=== PATIENT | female | born 1960 | race Caucasian/White ===

== ENCOUNTER 2019-01-23 04:54 | Emergency (ER) | payer BC ==
[2019-01-23 05:02] VITALS: RESP 18; TEMP 98
[2019-01-23] MEDS ORDERED: diphenhydrAMINE 50 MG/ML 1 ML VIAL IVP STA (05:14)
[2019-01-23] MEDS ORDERED: FAMOTIDINE 20 MG/2 ML VIAL IV STA (05:14)
--- NOTE | 2019-01-23 05:24 | ED ---
General Adult HPI - General Chief complaint: Shortness of Breath Stated complaint: Diff Breathing Time Seen by Provider: 01/23/19 04:59 Source: patient Mode of arrival: ambulatory Limitations: no limitations - History of Present Illness Initial comments: 's patient is 58-year-old woman who presents with complaint that around 1 AM today she woke with a feeling like she was having some itching spots to her back and extremities. She states that she was able to go back to sleep and then woke up a little later feeling like she may have some tightening in her throat. The patient states she had eaten lettuce from a different source than is usual for her. Onset/Timin -: hour(s) Location: back, lower extremity Quality: other (Itching) Consistency: constant Improves with: none Worsens with: none Treatments Prior to Arrival: none - Related Data Previous Rx's Medication Instructions Recorded Famotidine [Pepcid] 20 mg PO BID #14 tablet 01/23/19 diphenhydrAMINE [Benadryl] 50 mg PO QID PRN #20 capsule 01/23/19 Allergies Allergy/AdvReac Type Severity Reaction Status Date / Time aspirin Allergy Anaphylaxis Verified 01/23/19 05:03 codeine Allergy Anaphylaxis Verified 01/23/19 05:03 shellfish derived [Shellfish] Allergy Anaphylaxis Verified 01/23/19 05:03 Review of Systems ROS Statement: Those systems with pertinent positive or pertinent negative responses have been documented in the HPI. ROS Other: All systems not noted in ROS Statement are negative. Constitutional: Denies: fever, chills, weakness ENT: Denies: congestion Respiratory: Denies: cough, dyspnea, wheezes Cardiovascular: Denies: chest pain, palpitations, edema, syncope Gastrointestinal: Reports: diarrhea (One episode). Denies: abdominal pain, nausea, vomiting Skin: Reports: as per HPI, rash Past Medical History Past Medical History: No Reported History History of Any Multi-Drug Resistant Organisms: None Reported Past Surgical History: Section, Hysterectomy Past Psychological History: No Psychological Hx Reported Smoking Status: Never smoker Past Alcohol Use History: None Reported Past Drug Use History: None Reported General Exam Limitations: no limitations General appearance: alert, in no apparent distress Head exam: Present: atraumatic, normocephalic Eye exam: Present: normal appearance. Absent: scleral icterus, conjunctival injection ENT exam: Present: normal oropharynx Respiratory exam: Present: normal lung sounds bilaterally. Absent: respiratory distress, wheezes, rales, rhonchi, stridor Cardiovascular Exam: Present: regular rate, normal rhythm, normal heart sounds. Absent: systolic murmur, diastolic murmur, rubs, gallop GI/Abdominal exam: Present: soft. Absent: tenderness, guarding, rebound Extremities exam: Present: other (Urticaria) Back exam: Present: other (Urticaria) Neurological exam: Present: alert Skin exam: Present: warm, dry, intact, urticaria. Absent: cyanosis, diaphoretic, erythema, vesicles, petechiae, pallor, mottled, abrasion Course Vital Signs 01/23/19 04:56 Temperature 98.0 F Pulse Rate 92 Respiratory 18 Rate Blood Pressure 138/73 O2 Sat by Pulse 99 Oximetry Disposition Clinical Impression: Allergic reaction Disposition: HOME SELF-CARE Condition: Good Instructions (If sedation given, give patient instructions): General Allergic Reaction (ED) Prescriptions: diphenhydrAMINE [Benadryl] 50 mg PO QID PRN #20 capsule PRN Reason: Itching Famotidine [Pepcid] 20 mg PO BID #14 tablet Is patient prescribed a controlled substance at d/c from ED?: No Referrals: None,Stated [Primary Care Provider] - 1-2 days
[2019-01-23 07:01] VITALS: BP 133/73; PULSE 78
== END 2019-01-23 07:11 | disposition home or self-care (01) ==
LOC: EC 04:54
DX: L50.0 Allergic urticaria (principal); Z88.5 Allergy status to narcotic agent; Z88.6 Allergy status to analgesic agent; Z91.013 Allergy to seafood
CPT/HCPCS: 96374; 96375; 99284

== ENCOUNTER 2019-01-24 10:40 | Inpatient (IN) | payer BC ==
[2019-01-24] MEDS ORDERED: methylPREDNISolone SOD SUCCI 125 MG/2 ML VIAL IV STA (11:18)
[2019-01-24] MEDS ORDERED: FAMOTIDINE 20 MG/2 ML VIAL IV STA (11:18)
[2019-01-24] MEDS ORDERED: SODIUM CHLORIDE 0.9% 1,000 ML IV STA (11:18)
--- NOTE | 2019-01-24 11:46 | ED ---
General Adult HPI - General Chief complaint: Allergic Reaction Stated complaint: allergic reaction Time Seen by Provider: 01/24/19 11:02 Source: patient, RN notes reviewed, old records reviewed Mode of arrival: ambulatory Limitations: no limitations - History of Present Illness Initial comments: Patient's a 58-year-old male presents emergency room today for evaluation for urticaria over her arms legs. States that it feels like her lips are swollen. She seems from 2 days ago for similar complaint. At times discharged Pepcid and Benadryl Patient is only taking Benadryl. Patient states that she was feeling dizzy and lightheaded, and complains of increasing shortness of breath over the past week. She states that she has noticed that she appears to be somewhat pale. Patient states that she has had no changes in urination or stools. Surgical history includes hysterectomy. Denies vaginal bleeding. Patient states that she is never had a colonoscopy before. She denies any abdominal pain at this time. - Related Data Previous Rx's Medication Instructions Recorded Famotidine [Pepcid] 20 mg PO BID #14 tablet 01/23/19 diphenhydrAMINE [Benadryl] 50 mg PO QID PRN #20 capsule 01/23/19 Allergies Allergy/AdvReac Type Severity Reaction Status Date / Time aspirin Allergy Anaphylaxis Verified 01/24/19 10:59 codeine Allergy Anaphylaxis Verified 01/24/19 10:59 shellfish derived [Shellfish] Allergy Anaphylaxis Verified 01/24/19 10:59 Review of Systems ROS Statement: Those systems with pertinent positive or pertinent negative responses have been documented in the HPI. ROS Other: All systems not noted in ROS Statement are negative. Past Medical History Past Medical History: No Reported History History of Any Multi-Drug Resistant Organisms: None Reported Past Surgical History: Section, Hysterectomy Past Psychological History: No Psychological Hx Reported Smoking Status: Never smoker Past Alcohol Use History: None Reported Past Drug Use History: None Reported General Exam - General Exam Comments Initial Comments: Patient appears pale. Alert and oriented 58-year-old female. Limitations: no limitations General appearance: alert, in no apparent distress Head exam: Present: atraumatic, normocephalic, normal inspection Eye exam: Present: normal appearance, PERRL, EOMI. Absent: scleral icterus, conjunctival injection, periorbital swelling ENT exam: Present: normal exam, mucous membranes moist Neck exam: Present: normal inspection. Absent: tenderness, meningismus, lymphadenopathy Respiratory exam: Present: normal lung sounds bilaterally. Absent: respiratory distress, wheezes, rales, rhonchi, stridor Cardiovascular Exam: Present: regular rate, normal rhythm, normal heart sounds. Absent: systolic murmur, diastolic murmur, rubs, gallop, clicks GI/Abdominal exam: Present: soft, normal bowel sounds. Absent: distended, tenderness, guarding, rebound, rigid Rectal exam: Present: normal inspection, normal rectal tone Extremities exam: Present: normal inspection, full ROM, normal capillary refill. Absent: tenderness, pedal edema, joint swelling, calf tenderness Back exam: Present: normal inspection, full ROM Neurological exam: Present: alert, oriented X3, CN II-XII intact Psychiatric exam: Present: normal affect, normal mood Skin exam: Present: warm, dry, intact, normal color, urticaria (Patient has evidence of urticaria over her legs and inner thigh.). Absent: rash Course Vital Signs 01/24/19 01/24/19 10:56 12:22 Temperature 98.1 F Pulse Rate 84 85 Respiratory 16 16 Rate Blood Pressure 139/73 120/58 O2 Sat by Pulse 99 99 Oximetry Medical Decision Making - Medical Decision Making Patient is a 58-year-old female presenting to emergency department for evaluation for ALLERGIC reaction, urticaria. She also mentioned in by passing that she was feeling dizzy and shortness of breath over the past week. On examination Patient appears somewhat pale. She also appeared quite anxious. Patient had lab work is completed. There is found to be significantly low hemoglobin of 5.6. On requestioning Patient denies any changes in stools or black tarry stools. Fecal occult was negative. Patient states that she's been having the lightheaded dizziness and shortness of breath over the past week specifically. Denied chest pain. At this time I did give the Patient a dose of Solu-Medrol and Pepcid for urticaria. She recently took Benadryl. I discussed that I'll need to give the Patient IV blood transfusion. Patient is agreeable to this. Patient will be admitted at this time for symptomatically anemia, urticaria. Rectal exam showed no dark tarry stools or active bleeding. - Lab Data Result diagrams: 01/24/19 11:41 01/24/19 11:41 Lab Results 01/24/19 01/24/19 01/24/19 Range/Units 11:41 11:41 11:41 WBC 4.9 (3.8-10.6) k/uL RBC 3.09 L (3.80-5.40) m/uL Hgb 5.1 L* (11.4-16.0) gm/dL Hct 19.8 L* (34.0-46.0) % MCV 64.0 L (80.0-100.0) fL MCH 16.4 L (25.0-35.0) pg MCHC 25.6 L (31.0-37.0) g/dL RDW 18.1 H (11.5-15.5) % Plt Count 239 (150-450) k/uL Neutrophils % 71 % Lymphocytes % 21 % Monocytes % 4 % Eosinophils % 2 % Basophils % 0 % Neutrophils # 3.5 (1.3-7.7) k/uL Lymphocytes # 1.0 (1.0-4.8) k/uL Monocytes # 0.2 (0-1.0) k/uL Eosinophils # 0.1 (0-0.7) k/uL Basophils # 0.0 (0-0.2) k/uL Hypochromasia Marked Poikilocytosis Slight Anisocytosis Slight Microcytosis Marked PT 9.7 (9.0-12.0) sec INR 0.9 (<1.2) APTT 21.5 L (22.0-30.0) sec Sodium 140 (137-145) mmol/L Potassium 4.1 (3.5-5.1) mmol/L Chloride 106 (98-107) mmol/L Carbon Dioxide 23 (22-30) mmol/L Anion Gap 11 mmol/L BUN 10 (7-17) mg/dL Creatinine 0.53 (0.52-1.04) mg/dL Est GFR (CKD-EPI)AfAm >90 (>60 ml/min/1.73 sqM) Est GFR (CKD-EPI)NonAf >90 (>60 ml/min/1.73 sqM) Glucose 93 (74-99) mg/dL Calcium 8.9 (8.4-10.2) mg/dL Magnesium 2.2 (1.6-2.3) mg/dL Total Bilirubin 1.0 (0.2-1.3) mg/dL AST 13 L (14-36) U/L ALT 14 (9-52) U/L Alkaline Phosphatase 108 (38-126) U/L Troponin I (0.000-0.034) ng/mL Total Protein 6.5 (6.3-8.2) g/dL Albumin 3.7 (3.5-5.0) g/dL Stool Occult Blood (Negative) 01/24/19 01/24/19 Range/Units 11:41 12:16 WBC (3.8-10.6) k/uL RBC (3.80-5.40) m/uL Hgb (11.4-16.0) gm/dL Hct (34.0-46.0) % MCV (80.0-100.0) fL MCH (25.0-35.0) pg MCHC (31.0-37.0) g/dL RDW (11.5-15.5) % Plt Count (150-450) k/uL Neutrophils % % Lymphocytes % % Monocytes % % Eosinophils % % Basophils % % Neutrophils # (1.3-7.7) k/uL Lymphocytes # (1.0-4.8) k/uL Monocytes # (0-1.0) k/uL Eosinophils # (0-0.7) k/uL Basophils # (0-0.2) k/uL Hypochromasia Poikilocytosis Anisocytosis Microcytosis PT (9.0-12.0) sec INR (<1.2) APTT (22.0-30.0) sec Sodium (137-145) mmol/L Potassium (3.5-5.1) mmol/L Chloride (98-107) mmol/L Carbon Dioxide (22-30) mmol/L Anion Gap mmol/L BUN (7-17) mg/dL Creatinine (0.52-1.04) mg/dL Est GFR (CKD-EPI)AfAm (>60 ml/min/1.73 sqM) Est GFR (CKD-EPI)NonAf (>60 ml/min/1.73 sqM) Glucose (74-99) mg/dL Calcium (8.4-10.2) mg/dL Magnesium (1.6-2.3) mg/dL Total Bilirubin (0.2-1.3) mg/dL AST (14-36) U/L ALT (9-52) U/L Alkaline Phosphatase (38-126) U/L Troponin I <0.012 (0.000-0.034) ng/mL Total Protein (6.3-8.2) g/dL Albumin (3.5-5.0) g/dL Stool Occult Blood Negative (Negative) 01/24/19 11:58 EKG performed at 1129 shows sinus rhythm with fusion complexes. Nonspecific ST and around. Abnormal EKG. Ventricular rate of 75 bpm.. Intervals 146 most seconds. Chemistries and 72 Alba's seconds. QT QTc is 370/422 ms. - Radiology Data Radiology results: report reviewed Disposition Clinical Impression: Urticaria, Symptomatic anemia, Abnormal hemoglobin Disposition: ADMITTED IP TO THIS [facility] Condition: Good Is patient prescribed a controlled substance at d/c from ED?: No Referrals: None,Stated [Primary Care Provider] - 1-2 days Time of Disposition: 12:40
[2019-01-24 11:54] LABS: Anisocytosis Slight; Basophils % (A) 0 %; Eosinophils # (A) 0.1 k/uL (0-0.7); Eosinophils % (A) 2 %; Hypochromasia Marked; Lymphocytes % (A) 21 %; MCH 16.4 pg (25.0-35.0); MCHC 25.6 g/dL (31.0-37.0); Mean Platelet Volume 7.7; Microcytosis Marked; Monocytes # (A) 0.2 k/uL (0-1.0); Monocytes % (A) 4 %; Neutrophils # (A) 3.5 k/uL (1.3-7.7); Neutrophils % (A) 71 %; Platelet Count 239 k/uL (150-450); Poikilocytosis Slight; RBC 3.09 m/uL (3.80-5.40); RDW 18.1 % (11.5-15.5); WBC 4.9 k/uL (3.8-10.6)
[2019-01-24 12:00] LABS: HGB 5.1 gm/dL (11.4-16.0)
[2019-01-24 12:01] LABS: HCT 19.8 % (34.0-46.0)
[2019-01-24 12:02] LABS: ALT 14 U/L (9-52); AST 13 U/L (14-36); African American GFR (CKD) >90 (>60 ml/min/1.73 sqM); Albumin 3.7 g/dL (3.5-5.0); Alkaline Phosphatase 108 U/L (38-126); Anion Gap 11 mmol/L; Blood Urea Nitrogen 10 mg/dL (7-17); Calcium 8.9 mg/dL (8.4-10.2); Carbon Dioxide 23 mmol/L (22-30); Chloride 106 mmol/L (98-107); Glucose 93 mg/dL (74-99); Magnesium 2.2 mg/dL (1.6-2.3); Potassium 4.1 mmol/L (3.5-5.1); Sodium 140 mmol/L (137-145); Total Protein 6.5 g/dL (6.3-8.2)
[2019-01-24 12:16] LABS: INR 0.9 (<1.2); Prothrombin Time 9.7 sec (9.0-12.0)
[2019-01-24 12:18] LABS: Partial Thromboplastin Time 21.5 sec (22.0-30.0)
[2019-01-24] MEDS ORDERED: PANTOPRAZOLE 40 MG/10 ML VIAL IVP STA (12:26)
[2019-01-24] MEDS ORDERED: NALOXONE 0.4 MG/ML 1 ML VIAL IV PRN (12:41)
[2019-01-24] MEDS ORDERED: MORPHINE SULFATE 4 MG/ML SYRINGE IV PRN (12:41)
[2019-01-24] MEDS ORDERED: ONDANSETRON 4 MG/2 ML VIAL IVP PRN (12:41)
[2019-01-24] MEDS: SODIUM CHLORIDE 0.9% 1,000 ML IV SCH ×2 (12:52→22:01)
[2019-01-24] MEDS ORDERED: IOPAMIDOL-300 CONTRAST 30 ML VIAL (ORAL USE) PO PRN (15:27)
--- NOTE | 2019-01-24 15:36 | P.HPIM ---
History of Present Illness Chief Complaint: Shortness of breath This very pleasant 58-year-old female who comes in for above-mentioned complaint. The patient says that she was having urticarial lesions on her whole body starting 2 days ago. She came into the ER 2 days ago for which she was given Benadryl and Pepcid and her symptoms subsided. She said that she took off yesterday. she said that she started having those urticarial skin eruptions again today and she felt like her lips were swollen. She took Benadryl again and the rash went away. She said that for the past few days or so she's been feeling weak, more short of breath not able to do her daily activities without been short of breath. She was also told that she looks pale. She does came into the ER for further evaluation and management. She otherwise does not complain of any blood in the stools any bleeding from anywhere, she said that she had hysterectomy done about 20 years ago for excessive vaginal bleeding. She said that she never had her hemoglobin checked and she does not go to the doctor's. She doesn't have her colonoscopy done. She was not complaining of any chest pain but says that she's feeling palpitations, she does not complain of any cough but she is short of breath, she says that she is not painful in her belly but she is definitely tender in the left upper and lower quadrant that she does not complain of any nausea vomiting, no diarrhea constipation, no tingling numbness of any of the extremities, no itch or rash. ER course-temperature 98.4 pulse 87 respiration 18 blood pressure 114/87 satting 96%. Labwork was done which showed WBC 4.9 hemoglobin 5.1 platelets 239. Sodium 140 potassium 4.1 bun 10 creatinine 0.53 GFR more than 90. Fecal occult blood test was negative. Patient was given 2 units of blood and admitted to the hospitalist service a further evaluation and management Review of Systems All systems: negative Past Medical History Past Medical History: GERD/Reflux Additional Past Medical History / Comment(s): Light headed occasionally, hiatal hernia, R carpal tunnel syndrome, occasional lower back pain. History of Any Multi-Drug Resistant Organisms: None Reported Past Surgical History: Section, Hysterectomy Additional Past Surgical History / Comment(s): x 3, cervical lymph node excision, EGD, L carpal tunnel release. Past Anesthesia/Blood Transfusion Reactions: Postoperative Nausea & Vomiting (PONV) Additional Past Anesthesia/Blood Transfusion Reaction / Comment(s): Pt is currently in ER receiving blood transfusion. Smoking Status: Never smoker - Past Family History Father Family Medical History: No Reported History Additional Family Medical History / Comment(s): Father is healthy Mother Additional Family Medical History / Comment(s): Anemia Medications and Allergies Home Medications Medication Instructions Recorded Confirmed Type No Known Home Medications 01/24/19 01/24/19 History Allergies Allergy/AdvReac Type Severity Reaction Status Date / Time aspirin Allergy Anaphylaxis Verified 01/24/19 10:59 codeine Allergy Anaphylaxis Verified 01/24/19 10:59 shellfish derived [Shellfish] Allergy Anaphylaxis Verified 01/24/19 10:59 Physical Exam Vitals: Vital Signs Temp Pulse Resp BP Pulse Ox 01/24/19 14:19 98.4 F 87 18 114/87 01/24/19 13:49 98.6 F 87 18 111/68 100 01/24/19 13:39 99.1 F 87 18 129/55 98 01/24/19 13:20 127/58 01/24/19 13:10 87 20 121/48 98 01/24/19 13:00 88 26 H 116/49 01/24/19 12:52 82 18 116/49 100 01/24/19 12:50 81 17 116/49 100 01/24/19 12:40 83 19 103/54 99 01/24/19 12:30 80 18 120/58 100 01/24/19 12:22 85 16 120/58 99 01/24/19 12:20 86 20 120/58 100 01/24/19 12:17 18 01/24/19 10:56 98.1 F 84 16 139/73 99 Intake and Output 01/24/19 01/24/19 01/24/19 06:59 14:59 22:59 Intake Total 0 Balance 0 Intake: Blood Product 0 Rc As-1 Unit 0 [id number] Other: Weight 90.718 kg On exam, alert and oriented x3. HEENT: Conjunctivae normal. eyes normal. NECK: No JVD. No thyroid enlargement. No LNs CARDIOVASCULAR: S1, S2 muffled. No murmur RESPIRATION: Breath sounds diminished in the bases. No rhonchi or crackles. No bronchial breathing. ABDOMEN: Soft, tenderness in the left upper and lower quadrant. No guarding. no masses palpable. No ascites, No hepatosplenomegaly.Bowel sounds heard. LEGS: No edema. no swelling NERVOUS SYSTEM: Cranial N 2-12 grossly normal. Moves all 4 limbs. No focal deficits. No sensory deficit. No signs of cerebellar dysfucntion. Skin: no ulcer no rash Joints: No active swelling. No inflammation. Lymphatic system. No LN neck axilla or groin. Results CBC & Chem 7: 01/24/19 11:41 01/24/19 11:41 Labs: Abnormal Lab Results - Last 24 Hours (Table) 01/24/19 01/24/19 01/24/19 Range/Units 11:41 11:41 11:41 RBC 3.09 L (3.80-5.40) m/uL Hgb 5.1 L* (11.4-16.0) gm/dL Hct 19.8 L* (34.0-46.0) % MCV 64.0 L (80.0-100.0) fL MCH 16.4 L (25.0-35.0) pg MCHC 25.6 L (31.0-37.0) g/dL RDW 18.1 H (11.5-15.5) % APTT 21.5 L (22.0-30.0) sec AST 13 L (14-36) U/L Crossmatch 01/24/19 Range/Units 12:07 RBC (3.80-5.40) m/uL Hgb (11.4-16.0) gm/dL Hct (34.0-46.0) % MCV (80.0-100.0) fL MCH (25.0-35.0) pg MCHC (31.0-37.0) g/dL RDW (11.5-15.5) % APTT (22.0-30.0) sec AST (14-36) U/L Crossmatch See Detail Thrombosis Risk Factor Assmnt - Choose All That Apply Any of the Below Risk Factors Present?: Yes Each Factor Represents 1 point: Age 41-60 years, Obesity (BMI >25) Other Risk Factors: No Other congenital or acquired thrombophilia - If yes, enter type in comment: No Thrombosis Risk Factor Assessment Total Risk Factor Score: 2 Thrombosis Risk Factor Assessment Level: Low Risk Assessment and Plan Assessment: - Microcytic anemia - Urticarial rash resolved now - Palpitations and shortness of breath probably because of anemia Plan - We'll admit the patient to selective unit with telemetry - Patient is getting 2 units of blood - The MCV is low indicating that the patient is having microcytic anemia. She had her hysterectomy done about 20 years ago and she said that she's not bleeding from anywhere. She is complaining of abdominal pain. We will order for computed tomography scan of her belly to see is any occult pathology that might be causing her to cause slow bleed which probably the patient did not notice. We'll also involve GI to see if they have any recommendations regarding this and to see if she might benefit from an EGD or colonoscopy - If the GI causes ruled out, hematology oncology might need to be consulted to rule out the cause. She says that she's also having urticarial rash. I don't know how this could be connected to the anemia. For now we will put her on some when necessary Benadryl and Pepcid in case she needs it - DVT prophylaxis SCDs continue for anemia - We'll also started on Protonix 40 mg twice a day - We'll order for lab work in the morning including iron panel - Expected length of stay more than 2 midnights - Patient is full code
--- NOTE | 2019-01-24 17:52 | CT ---
EXAMINATION TYPE: CT abdomen pelvis w con DATE OF EXAM: 01/24/2019 COMPARISON: 10/08/2009 HISTORY: Generalized pain with weakness. CT DLP: 1314 mGycm Automated exposure control for dose reduction was used. TECHNIQUE: Helical acquisition of images was performed from the lung bases through the pelvis. CONTRAST: Performed with Oral Contrast and with IV Contrast, patient injected with 100 mL of Isovue 300. FINDINGS: Lung bases are clear. There is no pleural effusion. There is large hiatal hernia. Heart size is gita l. There is no pericardial effusion. Liver spleen pancreas gallbladder appear normal. Bile ducts are not dilated. There is no sign of pancreatic mass. There is no adrenal mass. Kidneys show satisfactory contrast opacification. There is no hydronephrosi s. Ureters are not dilated. Bladder distends smoothly. There is no inguinal hernia. There is no free fluid in the pelvis. There are numerous phleboliths in the pelvis. There is no mesenteric edema. There is no sign of a bowel obstruction. Appendix appears normal. There is no evidence of free air. There is no ascites. There is subcutaneous edema over the lower lumbar s pine. I see no bony destructive process. Bony pelvis appears intact. IMPRESSION: LARGE HIATAL HERNIA. NO SIGN OF ACUTE ABDOMEN AND PELVIS. NO SIGNIFICANT CHANGE COMPARED TO OLD EXAM.
[2019-01-24] MEDS: ACETAMINOPHEN TAB 325 MG TAB PO PRN (21:01)
[2019-01-24 23:12] LABS: Anisocytosis Moderate; HCT 24.9 % (34.0-46.0); Hypochromasia Marked; MCH 19.4 pg (25.0-35.0); MCHC 27.7 g/dL (31.0-37.0); Microcytosis Marked; Platelet Count 196 k/uL (150-450); Poikilocytosis Marked; RBC 3.55 m/uL (3.80-5.40); RDW 21.9 % (11.5-15.5); WBC 6.2 k/uL (3.8-10.6)
[2019-01-24 23:13] LABS: HGB 6.9 gm/dL (11.4-16.0)
[2019-01-24 23:30] LABS: Iron Saturation 2.41 (12.00-45.00)
[2019-01-24 23:39] LABS: Monocytes # (M) 0.06 k/uL (0-1.0); Neutrophils # (M) 5.64 k/uL (1.3-7.7); Neutrophils % (M) 91 %; Nucleated Red Blood Cells 0 /100 WBC (0-0); Total Cells Counted 100
[2019-01-24 23:40] LABS: Polychromasia Present
[2019-01-25] MEDS ORDERED: MELATONIN 5 MG TABLET PO PRN (01:10)
[2019-01-25 06:11] LABS: MCV 70.2 fL (80.0-100.0)
[2019-01-25] MEDS: PANTOPRAZOLE 40 MG/10 ML VIAL IV SCH (09:20)
[2019-01-25 10:34] LABS: Anisocytosis Slight; Basophils % (A) 0 %; Eosinophils % (A) 0 %; HCT 26.7 % (34.0-46.0); HGB 7.4 gm/dL (11.4-16.0); Hypochromasia Marked; Lymphocytes # (A) 1.4 k/uL (1.0-4.8); Lymphocytes % (A) 17 %; MCHC 27.6 g/dL (31.0-37.0); Mean Platelet Volume 7.8; Microcytosis Moderate; Monocytes # (A) 0.5 k/uL (0-1.0); Monocytes % (A) 6 %; Neutrophils # (A) 6.2 k/uL (1.3-7.7); Neutrophils % (A) 76 %; Platelet Count 193 k/uL (150-450); Poikilocytosis Marked; RBC 3.51 m/uL (3.80-5.40); RDW 19.9 % (11.5-15.5); WBC 8.3 k/uL (3.8-10.6)
[2019-01-25 10:43] LABS: MCV 76.1 fL (80.0-100.0)
[2019-01-25] MEDS: SODIUM CHLORIDE 0.9% 1,000 ML IV SCH ×2 (12:44→17:43)
[2019-01-25] MEDS: ACETAMINOPHEN TAB 325 MG TAB PO PRN ×2 (12:47→19:56)
[2019-01-25] MEDS ORDERED: BISACODYL 5 MG TABLET.DR PO STA (14:50)
--- NOTE | 2019-01-25 14:55 | P.CONS ---
History of Present Illness - Reason for Consult Consult date: 01/25/19 anemia Requesting physician: Timothy Brandon - Chief Complaint Rash shortness of breath - History of Present Illness 58-year-old female with a history of remote hysterectomy more than 20 years ago secondary to heavy menstrual periods presents with shortness of breath and upper torso pruritic rash that started last week. Admission CBC hemoglobin 5.1. MCV 64. Platelet 239. INR 0.9. Patient was not aware that she was anemic. No recent blood transfusions or iron supplements. Denies hematemesis hematochezia or melena. No changes in bowel habits. Patient received 3 units of blood current he will and a 7.4. Denies NSAID or aspirin usage. No alcohol. No changes in her diet. She is not vegetarian. BUN 10. Creatinine 0.5. No weight loss. Some vague mild bilateral lower abdominal pain. EGD more than 5 years ago for GERD type symptoms. No history of colonoscopy. FOBT negative. Iron 11. Iron saturation 2%. TIBC 456. CT abdomen large hiatal hernia no sign of acute abdomen and pelvis. Review of Systems Constitutional: Denies fever, chills, sweats, weight gain, or loss. HEENT: Negative for migraines, blurred vision or loss, earaches, drainage, tinnitus, oral mucosal lesions, dysphagia, or odynophagia. CARDIAC: Negative for chest pain, arrhythmias, or palpitation. RESPIRATORY: Positive for shortness of breath, denies hemoptysis, cough, or sputum production. GI: See HPI for pertinent findings. : Negative for hematuria, urgency, frequency, polyuria, or dysuria. GYNc: Negative vaginal discharge. MUSCULOSKELETAL: Negative for muscle aches, swelling, arthritis, and arthralgias. NEUROLOGIC: Negative for stroke or TIA. ENDOCRINE: Negative for thyroid problems. SKIN: Itching rash.. PSYCHIATRIC: Negative history for depression and anxiety Past Medical History Past Medical History: GERD/Reflux Additional Past Medical History / Comment(s): Light headed occasionally, hiatal hernia, R carpal tunnel syndrome, occasional lower back pain. History of Any Multi-Drug Resistant Organisms: None Reported Past Surgical History: Section, Hysterectomy Additional Past Surgical History / Comment(s): x 3, cervical lymph node excision, EGD, L carpal tunnel release. Past Anesthesia/Blood Transfusion Reactions: Postoperative Nausea & Vomiting (PONV) Additional Past Anesthesia/Blood Transfusion Reaction / Comm: Pt is currently in ER receiving blood transfusion. Smoking Status: Never smoker - Past Family History Father Family Medical History: No Reported History Additional Family Medical History / Comment(s): Father is healthy Mother Additional Family Medical History / Comment(s): Anemia Medications and Allergies Home Medications Medication Instructions Recorded Confirmed Type No Known Home Medications 01/24/19 01/24/19 History Allergies Allergy/AdvReac Type Severity Reaction Status Date / Time aspirin Allergy Anaphylaxis Verified 01/24/19 10:59 codeine Allergy Anaphylaxis Verified 01/24/19 10:59 shellfish derived [Shellfish] Allergy Anaphylaxis Verified 01/24/19 10:59 Physical Exam Vitals: Vital Signs Temp Pulse Pulse Resp BP BP Pulse Ox 01/25/19 12:10 66 18 103/52 95 01/25/19 08:00 98.1 F 67 18 108/47 100 01/25/19 04:56 98.6 F 79 18 103/52 01/25/19 02:24 98.6 F 81 18 109/53 95 01/25/19 01:54 98.8 F 71 18 121/57 94 L 01/25/19 01:44 98.9 F 78 18 118/56 94 L 01/24/19 23:53 99 F 89 18 131/58 97 01/24/19 21:39 98.9 F 86 18 134/63 95 01/24/19 20:18 98.1 F 87 18 124/87 99 01/24/19 20:00 81 19 95 01/24/19 19:30 86 21 96 01/24/19 19:00 87 24 01/24/19 18:57 98.1 F 95 18 129/87 100 01/24/19 18:30 88 20 96 01/24/19 18:00 82 20 135/56 94 L 01/24/19 17:30 135/56 01/24/19 17:29 78 18 139/59 100 01/24/19 17:00 70 20 139/59 01/24/19 16:50 98.1 F 78 18 123/78 100 01/24/19 16:30 78 21 135/65 01/24/19 16:23 98.8 F 87 18 134/67 99 01/24/19 16:20 98.0 F 84 18 134/87 01/24/19 16:10 98.8 F 80 16 135/65 96 01/24/19 16:00 133/60 98 01/24/19 15:36 98.1 F 87 18 124/87 100 01/24/19 15:30 83 16 119/62 95 01/24/19 15:00 84 10 L 144/66 96 Intake and Output 01/24/19 01/25/19 01/25/19 22:59 06:59 14:59 Intake Total 1020 620 340 Balance 1020 620 340 Intake: Oral 400 340 Blood Product 620 620 Rc As-1 Unit 310 [id number] Rc As-1 Unit 310 [id number] Rc As-1 Unit 310 [id number] Other: # Voids 2 Weight 93.3 kg General appearance: The patient is alert, oriented, in no acute distress. HET: Head is normocephalic and atraumatic. Pupils are equal and reactive. Oropharynx is clear without lesions. Neck: Supple without lymphadenopathy. Trachea midline. Heart: S1 S2. Regular rate and rhythm. Lungs: No crackles or wheezes are heard. Abdomen: Soft, nontender, nondistended with bowel sounds. No peritoneal signs. No palpable organomegaly or masses. Extremities: Normal skin color and turgor. No cyanosis, rash, ulceration, clubbing, or edema. Radial and pedal pulses are 2/4 bilaterally. Neurological: No focal deficits. Strength and sensation are grossly intact. Results CBC & Chem 7: 01/25/19 09:33 01/24/19 11:41 Labs: Abnormal Lab Results - Last 24 Hours (Table) 01/24/19 01/24/19 01/24/19 Range/Units 11:41 12:07 22:57 RBC 3.55 L (3.80-5.40) m/uL Hgb 6.9 L* D (11.4-16.0) gm/dL Hct 24.9 L (34.0-46.0) % MCV 70.2 L D (80.0-100.0) fL MCH 19.4 L (25.0-35.0) pg MCHC 27.7 L (31.0-37.0) g/dL RDW 21.9 H (11.5-15.5) % Lymphocytes # (Manual) 0.50 L (1.0-4.8) k/uL Iron 11 L (50-170) ug/dL Iron Saturation 2.41 L (12.00-45.00) Crossmatch See Detail 01/25/19 Range/Units 09:33 RBC 3.51 L (3.80-5.40) m/uL Hgb 7.4 L (11.4-16.0) gm/dL Hct 26.7 L (34.0-46.0) % MCV 76.1 L D (80.0-100.0) fL MCH 21.0 L (25.0-35.0) pg MCHC 27.6 L (31.0-37.0) g/dL RDW 19.9 H (11.5-15.5) % Lymphocytes # (Manual) (1.0-4.8) k/uL Iron (50-170) ug/dL Iron Saturation (12.00-45.00) Crossmatch CT scan - abdomen: report reviewed (Dr. Russ) Assessment and Plan (1) Symptomatic anemia Current Visit: Yes Status: Acute Code(s): D64.9 - ANEMIA, UNSPECIFIED SNOMED Code(s): 932840323 (2) Iron deficiency anemia Current Visit: Yes Status: Acute Code(s): D50.9 - IRON DEFICIENCY ANEMIA, UNSPECIFIED SNOMED Code(s): 24485847 (3) Acute blood loss anemia Current Visit: Yes Status: Acute Code(s): D62 - ACUTE POSTHEMORRHAGIC ANEMIA SNOMED Code(s): 954314317 (4) Rash Current Visit: Yes Status: Acute Code(s): R21 - RASH AND OTHER NONSPECIFIC SKIN ERUPTION SNOMED Code(s): 206327563 Plan: 1. CBC monitoring. Protonix 40 mg daily. EGD colonoscopy tomorrow afternoon. Nothing by mouth after midnight. The machinist apprentice has discussed the risks, benefits and alternative therapies for the above-mentioned procedure and for both sedation/analgesia as well as necessary blood product administration, if indicated, as they pertain to this patient. The patient has indicated understanding and acceptance of the risks and procedures discussed. Thank you for this kind referral and the opportunity to participate in the care of your patient. This consultation was discussed with Dr. Velocci. The impres lulu and plan of care have been directed as dictated.
[2019-01-25] MEDS ORDERED: PEG 3350-NA SULF,BICARB,CL/KCL 4,000 ML BOTTLE PO ONE (15:00)
--- NOTE | 2019-01-25 16:08 | P.PN ---
Subjective Principal diagnosis: This very pleasant 58-year-old female who comes in for above-mentioned complaint. The patient says that she was having urticarial lesions on her whole body starting 2 days ago. She came into the ER 2 days ago for which she was given Benadryl and Pepcid and her symptoms subsided. She said that she took off yesterday. she said that she started having those urticarial skin eruptions again today and she felt like her lips were swollen. She took Benadryl again and the rash went away. She said that for the past few days or so she's been feeling weak, more short of breath not able to do her daily activities without been short of breath. She was also told that she looks pale. She does came into the ER for further evaluation and management. She otherwise does not complain of any blood in the stools any bleeding from anywhere, she said that she had hysterectomy done about 20 years ago for excessive vaginal bleeding. She said that she never had her hemoglobin checked and she does not go to the doctor's. She doesn't have her colonoscopy done. She was not complaining of any chest pain but says that she's feeling palpitations, she does not complain of any cough but she is short of breath, she says that she is not painful in her belly but she is definitely tender in the left upper and lower quadrant that she does not complain of any nausea vomiting, no diarrhea constipation, no tingling numbness of any of the extremities, no itch or rash. ER course-temperature 98.4 pulse 87 respiration 18 blood pressure 114/87 satting 96%. Labwork was done which showed WBC 4.9 hemoglobin 5.1 platelets 239. Sodium 140 potassium 4.1 bun 10 creatinine 0.53 GFR more than 90. Fecal occult blood test was negative. Patient was given 2 units of blood and admitted to the hospitalist service a further evaluation and management 01/25/2019 Patient hemoglobin this morning was 7.4. She got over 3 units of blood transfusion yesterday She said that she's still feeling a little weak but better than yesterday No chest pain racing heart, no cough no shortness of breath Objective - Vital Signs Vital signs: Vital Signs Temp 98.1 F 01/25/19 08:00 Pulse 66 01/25/19 12:10 Resp 18 01/25/19 12:10 BP 103/52 07/19/19 12:10 Pulse Ox 95 01/25/19 12:10 Intake & Output 01/24/19 01/25/19 01/25/19 18:59 06:59 18:59 Intake Total 620 1020 340 Balance 620 1020 340 Weight 90.718 kg 93.3 kg Intake: Oral 400 340 Blood Product 620 620 Rc As-1 Unit 310 [id number] Rc As-1 Unit 310 [id number] Rc As-1 Unit 310 [id number] Other: # Voids 2 - Exam On exam, alert and oriented x3. HEENT: Conjunctivae normal. eyes normal. NECK: No JVD. No thyroid enlargement. No LNs CARDIOVASCULAR: S1, S2 muffled. No murmur RESPIRATION: Breath sounds diminished in the bases. No rhonchi or crackles. No bronchial breathing. ABDOMEN: Soft, nontender . No guarding. no masses palpable. No ascites, No hepatosplenomegaly.Bowel sounds heard. LEGS: No edema. no swelling NERVOUS SYSTEM: Cranial N 2-12 grossly normal. Moves all 4 limbs. No focal deficits. No sensory deficit. No signs of cerebellar dysfucntion. Skin: no ulcer no rash Joints: No active swelling. No inflammation. Lymphatic system. No LN neck axilla or groin. - Labs CBC & Chem 7: 01/25/19 09:33 01/24/19 11:41 Labs: Abnormal Lab Results - Last 24 Hours (Table) 01/24/19 01/24/19 01/24/19 Range/Units 11:41 12:07 22:57 RBC 3.55 L (3.80-5.40) m/uL Hgb 6.9 L* D (11.4-16.0) gm/dL Hct 24.9 L (34.0-46.0) % MCV 70.2 L D (80.0-100.0) fL MCH 19.4 L (25.0-35.0) pg MCHC 27.7 L (31.0-37.0) g/dL RDW 21.9 H (11.5-15.5) % Lymphocytes # (Manual) 0.50 L (1.0-4.8) k/uL Iron 11 L (50-170) ug/dL Iron Saturation 2.41 L (12.00-45.00) Crossmatch See Detail 01/25/19 Range/Units 09:33 RBC 3.51 L (3.80-5.40) m/uL Hgb 7.4 L (11.4-16.0) gm/dL Hct 26.7 L (34.0-46.0) % MCV 76.1 L D (80.0-100.0) fL MCH 21.0 L (25.0-35.0) pg MCHC 27.6 L (31.0-37.0) g/dL RDW 19.9 H (11.5-15.5) % Lymphocytes # (Manual) (1.0-4.8) k/uL Iron (50-170) ug/dL Iron Saturation (12.00-45.00) Crossmatch Assessment and Plan Assessment: - Microcytic anemia - Urticarial rash resolved now - Palpitations and shortness of breath probably because of anemia Plan 01/24/2019 - We'll admit the patient to selective unit with telemetry - Patient is getting 2 units of blood - The MCV is low indicating that the patient is having microcytic anemia. She had her hysterectomy done about 20 years ago and she said that she's not bleeding from anywhere. She is complaining of abdominal pain. We will order for computed tomography scan of her belly to see is any occult pathology that might be causing her to cause slow bleed which probably the patient did not notice. We'll also involve GI to see if they have any recommendations regarding this and to see if she might benefit from an EGD or colonoscopy - If the GI causes ruled out, hematology oncology might need to be consulted to rule out the cause. She says that she's also having urticarial rash. I don't know how this could be connected to the anemia. For now we will put her on some when necessary Benadryl and Pepcid in case she needs it - DVT prophylaxis SCDs continue for anemia - We'll also started on Protonix 40 mg twice a day - We'll order for lab work in the morning including iron panel - Expected length of stay more than 2 midnights - Patient is full code 01/25/2019 - Patient's hemoglobin is 7.4 - We'll monitor hemoglobin - GI consulted will probably end up getting an EGD - Nothing by mouth after midnight - Continue Protonix - I will order for iron profile. Results of which are pending at this time - We'll continue to monitor
[2019-01-26] MEDS: SODIUM CHLORIDE 0.9% 1,000 ML IV SCH ×2 (05:46→10:06)
[2019-01-26 06:51] LABS: Anisocytosis Moderate; HCT 26.7 % (34.0-46.0); HGB 7.4 gm/dL (11.4-16.0); Hypochromasia Marked; MCH 20.6 pg (25.0-35.0); MCHC 27.6 g/dL (31.0-37.0); MCV 74.7 fL (80.0-100.0); Mean Platelet Volume 9.3; Microcytosis Moderate; Platelet Count 183 k/uL (150-450); Poikilocytosis Marked; RBC 3.57 m/uL (3.80-5.40); RDW 20.8 % (11.5-15.5); WBC 5.5 k/uL (3.8-10.6)
[2019-01-26 07:01] LABS: African American GFR (CKD) >90 (>60 ml/min/1.73 sqM); Anion Gap 8 mmol/L; Blood Urea Nitrogen 12 mg/dL (7-17); Calcium 8.8 mg/dL (8.4-10.2); Carbon Dioxide 25 mmol/L (22-30); Chloride 108 mmol/L (98-107); Glucose 91 mg/dL (74-99); Sodium 141 mmol/L (137-145)
[2019-01-26] MEDS: PANTOPRAZOLE 40 MG/10 ML VIAL IV SCH (08:39)
[2019-01-26] MEDS ORDERED: GLYCOPYRROLATE 0.2 MG/ML 2 ML VIAL ONE (13:03)
[2019-01-26] MEDS ORDERED: PROPOFOL 10 MG/ML 20 ML VIAL IV ONE (13:03)
[2019-01-26] MEDS ORDERED: LIDOCAINE 1% INJ 10MG/ML (20 ML MDV) ONE (13:03)
--- NOTE | 2019-01-26 13:04 | P.PN ---
Subjective This is a pleasant 58 years old female who presents with a rash and dyspnea, thought secondary to ALLERGIC reaction. She received steroids and breathing treatment. Patient feels better. She denies chest pain or dyspnea. However patient was found to be severely anemic on admission with hemoglobin is 5.1. GI team are planning to do EGD/colonoscopy today. She complains only of mild headache. Patient states that she does not have PCP as an outpatient but she already has an appointment with Dr. Lopez , next month February however she is not sure about the date and she has the exact information at home. Objective - Vital Signs Vital signs: Vital Signs Temp 98.0 F 01/26/19 08:30 Pulse 65 01/26/19 11:37 Resp 18 01/26/19 11:37 BP 135/61 01/26/19 11:37 Pulse Ox 96 01/26/19 11:37 Intake & Output 01/25/19 01/26/19 01/26/19 18:59 06:59 18:59 Intake Total 1060 0 Balance 1060 0 Intake: Oral 1060 0 Other: Voiding Method Toilet Toilet # Voids 1 - Exam GENERAL: The patient is alert and oriented x3, not in any acute distress. Well developed, well nourished. HEENT: Pupils are round and equally reacting to light. EOMI. No scleral icterus. No conjunctival pallor. Normocephalic, atraumatic. No pharyngeal erythema. No thyromegaly. CARDIOVASCULAR: S1 and S2 present. No murmurs, rubs, or gallops. PULMONARY: Chest is clear to auscultation, no wheezing or crackles. ABDOMEN: Soft, nontender, nondistended, normoactive bowel sounds. No palpable organomegaly. MUSCULOSKELETAL: No joint swelling or deformity. EXTREMITIES: No cyanosis, clubbing, or pedal edema. NEUROLOGICAL: Gross neurological examination did not reveal any focal deficits. SKIN: No rashes. - Labs CBC & Chem 7: 01/26/19 06:39 01/26/19 06:39 Labs: Abnormal Lab Results - Last 24 Hours (Table) 01/26/19 01/26/19 Range/Units 06:39 06:39 RBC 3.57 L (3.80-5.40) m/uL Hgb 7.4 L (11.4-16.0) gm/dL Hct 26.7 L (34.0-46.0) % MCV 74.7 L (80.0-100.0) fL MCH 20.6 L (25.0-35.0) pg MCHC 27.6 L (31.0-37.0) g/dL RDW 20.8 H (11.5-15.5) % Chloride 108 H (98-107) mmol/L Assessment and Plan Assessment: Rash, mostly secondary to ALLERGIC reaction. Acute blood loss anemia. Rule out and GI bleed Iron deficiency anemia Plan: This is a pleasant 58 years old female who presents with ALLERGIC reaction reso lved associated with severe anemia. Patient is going for EGD/colonoscopy today by GI team.Labs and medication were reviewed.. Continue same treatment. Continue with symptomatic treatment. Resume home medication. Monitor lytes and vitals. DVT and GI prophylaxis. Further recommendations of the clinical course of the patient DVT prophylaxis: Known to completion in view of possible GI bleed GI Prophylaxis: Protonix Prognosis is guarded
[2019-01-26] MEDS ORDERED: IV FLUID CONTINUATION 800 ML IV ONE (13:50)
--- NOTE | 2019-01-26 13:58 | P.PCN ---
Date of Procedure: 01/26/19 Description of Procedure: Brief history: 58-year-old female with a history of remote hysterectomy more than 20 years ago secondary to heavy menstrual periods presents with shortness of breath and upper torso pruritic rash that started last week. Admission CBC hemoglobin 5.1. MCV 64. Platelet 239. INR 0.9. Patient was not aware that she was anemic. No recent blood transfusions or iron supplements. Denies hematemesis hematochezia or melena. No changes in bowel habits. Patient received 3 units of blood current he will and a 7.4. Denies NSAID or aspirin usage. No alcohol. No changes in her diet. She is not vegetarian. BUN 10. Creatinine 0.5. No weight loss. Some vague mild bilateral lower abdominal pain. EGD more than 5 years ago for GERD type symptoms. No history of colonoscopy. FOBT negative. Iron 11. Iron saturation 2%. TIBC 456. CT abdomen large hiatal hernia no sign of acute abdomen and pelvis. Procedure performed: Esophagogastroduodenoscopy with biopsy Colonoscopy with polypectomy Estimated blood loss: Minimal. Preoperative diagnosis: iron deficiency anemia, no prior history of colonoscopy Anesthesia: MAC Procedure: After informed consent was obtained from the patient was brought into the endoscopy unit and IV sedation was administered by anesthesia under continuous monitoring. Initially upper endoscopy was done. The Olympus GF 190 video endoscope was inserted inserted into the mouth and esophagus intubated without any difficulty and was gradually advanced into the stomach and duodenum and carefully examined. The bulb and second part of the duodenum appeared normal, With biopsies taken. The scope was then withdrawn into the stomach adequately insufflated with air and upon careful examination the antrum and body, cardia and fundus appeared normal, except for some mild scattered erythema in the antrum and body suggestive of mild gastritis which was biopsied. The scope was then withdrawn into the esophagus. large 5 cm hiatal hernia. The GE junction was located at 35 cm to the incisors. It appeared regular with no erythema erosions or ulcerations. Rest of the esophagus appeared normal. Patient tolerated the procedure well. At this time the patient continued to remain sedation. Initial digital rectal examination was normal. Olympus CF 190 video colonoscope was then inserted into the rectum and gradually advanced to the cecum without any difficulty. The terminal ileum was intubated and appeared normal. Careful examination was performed as the scope was gradually being withdrawn. The prep was excellent. The cecum, ascending colon, transverse colon, descending colon, sigmoid colon and rectum appeared normal. A 11 mm pedunculated hepatic flexure polyp was removed with cold snare polypectomy. The 3 mm rectal polyp was removed with cold forcep polypectomy. Small internal hemorrhoids noted.. Patient tolerated the procedure well. Impression: 1. Mild gastritis antrum and body biopsied. Duodenal biopsies. Large hiatal hernia. 2. Hepatic flexure polyp removed with cold snare. Small rectal polyp removed with cold forceps. Mild internal hemorrhoids. Recommendations: Findings of this examination were discussed with the patient as well as the nursing staff. Okay to resume diet. Continue to monitor hemoglobin and hematocrit and transfuse as needed. Further hematologic workup ordered. If patient has further fall in hemoglobin consider video capsule endoscopy for further evaluation. Recommendation is for likely repeat colonoscopy in 3 years for high risk polyps, pending pathology from polypectomy.
[2019-01-26 14:02] LABS: Reticulocyte % 1.5 % (0.5-2.0)
[2019-01-26 23:45] LABS: Folate, Serum 12.2 ng/mL
[2019-01-27] MEDS: SODIUM CHLORIDE 0.9% 1,000 ML IV SCH ×2 (02:51→20:16)
[2019-01-27 06:26] LABS: Anisocytosis Moderate; Basophils % (A) 1 %; Eosinophils # (A) 0.3 k/uL (0-0.7); Eosinophils % (A) 5 %; HCT 27.8 % (34.0-46.0); HGB 7.5 gm/dL (11.4-16.0); Hypochromasia Marked; Lymphocytes # (A) 1.7 k/uL (1.0-4.8); Lymphocytes % (A) 29 %; MCH 20.3 pg (25.0-35.0); MCHC 27.1 g/dL (31.0-37.0); MCV 74.8 fL (80.0-100.0); Mean Platelet Volume 9.6; Microcytosis Marked; Monocytes # (A) 0.4 k/uL (0-1.0); Monocytes % (A) 7 %; Neutrophils # (A) 3.4 k/uL (1.3-7.7); Neutrophils % (A) 57 %; Platelet Count 204 k/uL (150-450); Poikilocytosis Marked; RBC 3.71 m/uL (3.80-5.40); RDW 21.7 % (11.5-15.5)
[2019-01-27] MEDS: PANTOPRAZOLE 40 MG/10 ML VIAL IV SCH (08:38)
[2019-01-27] MEDS ORDERED: CYANOCOBALAMIN 1,000 MCG/ML 1 ML VIAL IM ONE (11:00)
--- NOTE | 2019-01-27 11:03 | P.PN ---
Subjective This is a pleasant 58 years old female who presents with a rash and dyspnea, thought secondary to ALLERGIC reaction. She received steroids and breathing treatment. Patient feels better. She denies chest pain or dyspnea. However patient was found to be severely anemic on admission with hemoglobin is 5.1. GI team are planning to do EGD/colonoscopy today. She complains only of mild headache. Patient states that she does not have PCP as an outpatient but she already has an appointment with Dr. Lopez , next month February however she is not sure about the date and she has the exact information at home. 01/27/2019 Patient is awake with no chest pain or abdominal pain. No nausea vomiting or change in bowel habits. No other new complaint. Vitas looks stable. Hemoglobin is stable to 7.5, on the low side. Folate level is within normal limits. B12 is in the low-normal side, I think it needs to be replaced in the view of her severe anemia. She had EGD and colonoscopy yesterday showing mild gastritis and colonic polyps status post polypectomy which was sent for pathology report, patient was instructed to follow-up the results of the biopsy and she agrees with it. Risks including but not limited to cancer are explained. Headache is improving. No other new complaints. Fluoroscopy sulfate are started. Objective - Vital Signs Vital signs: Vital Signs Temp 97.3 F L 01/27/19 08:00 Pulse 81 01/27/19 08:00 Resp 16 01/27/19 08:00 BP 118/58 01/27/19 08:00 Pulse Ox 91 L 01/27/19 08:00 Intake & Output 01/26/19 01/27/19 01/27/19 18:59 06:59 18:59 Intake Total 1500 240 Balance 1500 240 Weight 91.9 kg Intake: IV 900 Saline at 100cc/hr 500 Oral 600 240 Other: Voiding Method Toilet Toilet # Voids 2 1 - Exam GENERAL: The patient is alert and oriented x3, not in any acute distress. Well developed, well nourished. HEENT: Pupils are round and equally reacting to light. EOMI. No scleral icterus. No conjunctival pallor. Normocephalic, atraumatic. No pharyngeal erythema. No thyromegaly. CARDIOVASCULAR: S1 and S2 present. No murmurs, rubs, or gallops. PULMONARY: Chest is clear to auscultation, no wheezing or crackles. ABDOMEN: Soft, nontender, nondistended, normoactive bowel sounds. No palpable organomegaly. MUSCULOSKELETAL: No joint swelling or deformity. EXTREMITIES: No cyanosis, clubbing, or pedal edema. NEUROLOGICAL: Gross neurological examination did not reveal any focal deficits. SKIN: No rashes. - Labs CBC & Chem 7: 01/27/19 06:14 01/26/19 06:39 Labs: Abnormal Lab Results - Last 24 Hours (Table) 01/27/19 Range/Units 06:14 RBC 3.71 L (3.80-5.40) m/uL Hgb 7.5 L (11.4-16.0) gm/dL Hct 27.8 L (34.0-46.0) % MCV 74.8 L (80.0-100.0) fL MCH 20.3 L (25.0-35.0) pg MCHC 27.1 L (31.0-37.0) g/dL RDW 21.7 H (11.5-15.5) % Assessment and Plan Assessment: Rash, mostly secondary to ALLERGIC reaction. Resolved Acute blood loss anemia. Rule. Status post EGD/colonoscopy: Gastritis and colonic polyps, status post polypectomy Iron deficiency anemia vitamin B12 deficiency Mild internal hemorrhoids Plan: This is a pleasant 58 years old female who presents with ALLERGIC reaction resolved associated with severe anemia. Patient is status post EGD/colonoscopy by GI team and result as above, patient was instructed to follow-up with the polyp biopsy results.replace vitamin B12. Labs and medication were reviewed.. Continue same treatment. Continue with symptomatic treatment. Resume home medication. Monitor lytes and vitals. DVT and GI prophylaxis. Further recommendations of the clinical course of the patient DVT prophylaxis: Known to completion in view of possible GI bleed GI Prophylaxis: Protonix Prognosis is guarded
[2019-01-27] MEDS: FERROUS SULFATE 325 MG TAB PO SCH ×2 (12:19→16:14)
[2019-01-27 12:57] LABS: Folate, Serum 11.8 ng/mL
--- NOTE | 2019-01-27 20:38 | P.PN ---
Subjective Progress Note Date: 01/27/19 Principal diagnosis: Iron deficiency anemia Patient seen sitting in bed from. No reports of abdominal pain, or signs or symptoms of GI bleeding. One soft formed bowel movement this morning. Tolerating her diet. Objective - Vital Signs Vital signs: Vital Signs Temp 97.3 F L 01/27/19 08:00 Pulse 73 01/27/19 15:00 Resp 16 01/27/19 15:00 BP 140/68 01/27/19 15:00 Pulse Ox 96 01/27/19 15:00 Intake & Output 01/27/19 01/27/19 01/28/19 06:59 18:59 06:59 Intake Total 720 Balance 720 Weight 91.9 kg Intake: Oral 720 Other: Voiding Method Toilet # Voids 1 2 - Exam On physical examination, patient appears comfortable in no apparent distress. HEAD: Normocephalic, atraumatic. EYES: No scleral icterus. No conjunctival injection. MOUTH: No lesions, tongue midline. NECK: Trachea midline, no gross abnormalities. CHEST: Clear to auscultation with no wheezing or rhonchi appreciated. HEART: Regular rate and rhythm. ABDOMEN: Soft, obese. Bowel sounds are positive. No organomegaly. No guarding or rigidity. EXTREMITIES: No pedal edema. SKIN: No rashes, no jaundice. NEUROLOGIC: Alert and oriented x3. No focal deficits. - Labs CBC & Chem 7: 01/27/19 06:14 01/26/19 06:39 Labs: Abnormal Lab Results - Last 24 Hours (Table) 01/27/19 Range/Units 06:14 RBC 3.71 L (3.80-5.40) m/uL Hgb 7.5 L (11.4-16.0) gm/dL Hct 27.8 L (34.0-46.0) % MCV 74.8 L (80.0-100.0) fL MCH 20.3 L (25.0-35.0) pg MCHC 27.1 L (31.0-37.0) g/dL RDW 21.7 H (11.5-15.5) % Assessment and Plan (1) Iron deficiency anemia Narrative/Plan: 58-year-old female who is status post evaluation with EGD and colonoscopy for iron deficiency anemia. Findings on EGD of large hiatal hernia and gastritis, and 2 polyps removed and internal hemorrhoids noted on colonoscopy. Hemoglobin remains stable today at 7.5 from 7.4 previously. No signs or symptoms of GI bleeding reported. Current Visit: Yes Status: Acute Code(s): D50.9 - IRON DEFICIENCY ANEMIA, UNSPECIFIED SNOMED Code(s): 49362175 (2) Hiatal hernia Current Visit: Yes Status: Acute Code(s): K44.9 - DIAPHRAGMATIC HERNIA WITHOUT OBSTRUCTION OR GANGRENE SNOMED Code(s): 73565651 Plan: Supportive care Okay for diet Continue monitor hemoglobin and transfuse as needed Continue iron supplementation Continue Protonix therapy Await pathology from biopsies We'll likely need repeat colonoscopy in 5 years for screening pending pathology from polypectomies If further signs or symptoms of GI bleeding or fall in hemoglobin consider further evaluation with video capsule endoscopy Thank you for allowing us to participate in the care of the patient we will continue to follow
[2019-01-28] MEDS: FERROUS SULFATE 325 MG TAB PO SCH (05:57)
[2019-01-28 06:31] LABS: Anisocytosis Moderate; Basophils % (A) 1 %; Eosinophils # (A) 0.4 k/uL (0-0.7); Eosinophils % (A) 7 %; HCT 28.4 % (34.0-46.0); HGB 8.1 gm/dL (11.4-16.0); Hypochromasia Marked; Lymphocytes # (A) 1.4 k/uL (1.0-4.8); Lymphocytes % (A) 23 %; MCH 20.7 pg (25.0-35.0); MCHC 28.6 g/dL (31.0-37.0); MCV 72.4 fL (80.0-100.0); Mean Platelet Volume 9.3; Microcytosis Marked; Monocytes # (A) 0.4 k/uL (0-1.0); Monocytes % (A) 6 %; Neutrophils # (A) 3.9 k/uL (1.3-7.7); Neutrophils % (A) 62 %; Platelet Count 232 k/uL (150-450); Poikilocytosis Marked; RBC 3.93 m/uL (3.80-5.40); RDW 23.9 % (11.5-15.5); WBC 6.3 k/uL (3.8-10.6)
[2019-01-28 07:29] VITALS: BP 117/57; PULSE 77; RESP 16; TEMP 97.2
[2019-01-28] MEDS: PANTOPRAZOLE 40 MG/10 ML VIAL IV SCH (08:25)
[2019-01-28] MEDS ORDERED: CYANOCOBALAMIN 500 MCG TAB PO SCH (09:00)
[2019-01-28] MEDS ORDERED: CYANOCOBALAMIN 1,000 MCG/ML 1 ML VIAL IM ONE (10:00)
--- NOTE | 2019-01-28 10:00 | P.DS ---
Providers Date of admission: 01/24/19 12:32 Attending physician: Flora Stevens Primary care physician: Stated None Hospital Course: Diagnoses: Acute blood loss anemia. Status post EGD/colonoscopy: Gastritis and colonic polyps, status post polypectomy Iron deficiency anemia vitamin B12 deficiency Mild internal hemorrhoids Rash, mostly secondary to ALLERGIC reaction. Resolved Hospital course: This is a pleasant 58 years old female with no significant past medical history. She doesn't follow with PCP. Presents with dyspnea secondary to severe anemia with hemoglobin of 5.1 upon admission. Patient received 3 units of blood transfusion and her hemoglobin went up to 7.4. Patient found to have iron deficiency anemia and low vitamin B12 level. Patient also has been evaluated by gastroenterology team, she underwent EGD: Mild gastritis and colonoscopy:colonic polyps status post polypectomy but no active source of bleeding is found. Patient hemoglobin remained stable, patient was started on iron pills and vitamin B12 replacement. Her hemoglobin went up to 8.1 on discharge day. Patient remains asymptomatic with no dyspnea. No chest pain. No change in urine or bowel habits. No abdominal pain. No nausea vomiting. No fever. Patient was cleared by GI team for discharge Problems and management plan were discussed with the patient and he verbalized understanding and acceptance Patient was found stable and can be discharged home however he needs follow-up as an outpatient. Patient agrees with appointment and their timing for PCP Dr. Lazar and GI team and stated she will follow-up. Patient was counseled about the importance of adherence to therapy including vitamin B12 replacement and to check vitamin B12 level with her doctor. Risk of low vitamin B12 are explained to the patient including but not limited to anemia, reversible nerve damage like dementia or paralysis versus other. Patient verbalized understanding and acceptance Also patient was instructed to follow up with GI office for biopsy results. Risks including but not limited to cancer is explained to the patient and she told me she able to follow-up. Gen: patient is a AAOx3, no distress CVS: S1-S2, RRR, no murmur Lungs: B/L CTA, no wheezing Abdomen: soft, no distention, no tenderness, positive bowel sounds Extremity: no leg edema or induration Time spent more than 35 minutes Patient Condition at Discharge: Good Plan - Discharge Summary Discharge Rx Participant: No New Discharge Prescriptions: New Ferrous Sulfate [Iron (65 MG Elemental)] 325 mg PO BID-W/MEALS #60 tab Pantoprazole Sodium [Protonix] 40 mg PO DAILY #30 tablet. Cyanocobalamin [Vitamin B-12] 1,000 mcg PO DAILY #30 tab Discharge Medication List Cyanocobalamin [Vitamin B-12] 1,000 mcg PO DAILY #30 tab 01/28/19 [Rx] Ferrous Sulfate [Iron (65 MG Elemental)] 325 mg PO BID-W/MEALS #60 tab 01/28/19 [Rx] Pantoprazole Sodium [Protonix] 40 mg PO DAILY #30 tablet. 01/28/19 [Rx] Follow up Appointment(s)/Referral(s): Aimee Lazar III, MD [STAFF PHYSICIAN] - 02/11/19 3:30 pm (Monday -previously scheduled new pt appointment -unable to be seen earlier) Rio Russ MD [STAFF PHYSICIAN] - 03/01/19 8:15 am (Monday -please arrive at 7:45 to fill out paperwork) Patient Instructions/Handouts: Gastritis (DC), Anemia (DC) Activity/Diet/Wound Care/Special Instructions: Regular diet Activity as tolerated Discharge Disposition: HOME SELF-CARE
== END 2019-01-28 10:50 | disposition home or self-care (01) | DRG 812 ==
LOC: EC 10:40 → 3SCARD 12:32
PROVIDERS: ADMIT Hospitalist; ATTEND Hospitalist
PROC: 30233N1 Transfusion of Nonautologous Red Blood Cells into Peripheral Vein, Percutaneous Approach (ICD-10-PCS; principal; 2019-01-24)
PROC: 0DB98ZX Excision of Duodenum, Via Natural or Artificial Opening Endoscopic, Diagnostic (ICD-10-PCS; 2019-01-24)
PROC: 0DB78ZX Excision of Stomach, Pylorus, Via Natural or Artificial Opening Endoscopic, Diagnostic (ICD-10-PCS; 2019-01-24)
PROC: 0DB68ZX Excision of Stomach, Via Natural or Artificial Opening Endoscopic, Diagnostic (ICD-10-PCS; 2019-01-24)
PROC: 0DBP8ZZ Excision of Rectum, Via Natural or Artificial Opening Endoscopic (ICD-10-PCS; 2019-01-24)
PROC: 0DBL8ZZ Excision of Transverse Colon, Via Natural or Artificial Opening Endoscopic (ICD-10-PCS; 2019-01-24)
DX: D62 Acute posthemorrhagic anemia (principal); D50.9 Iron deficiency anemia, unspecified; E53.8 Deficiency of other specified B group vitamins; K21.9 Gastro-esophageal reflux disease without esophagitis; K29.70 Gastritis, unspecified, without bleeding; K44.9 Diaphragmatic hernia without obstruction or gangrene; K62.1 Rectal polyp; K64.8 Other hemorrhoids; L50.9 Urticaria, unspecified; G56.01 Carpal tunnel syndrome, right upper limb; R51 Headache; K63.5 Polyp of colon; Z90.710 Acquired absence of both cervix and uterus; Z79.899 Other long term (current) drug therapy; Z88.6 Allergy status to analgesic agent; Z88.5 Allergy status to narcotic agent; Z91.013 Allergy to seafood
CPT/HCPCS: 36415; 43239; 45380; 45385; 74177; 80048; 80053; 82272; 82607; 82746; 83540; 83550; 83735; 84484; 85025; 85027; 85045; 85610; 85730; 86850; 86900; 86901; 86920; 88305; 93005; 94760; 96361; 96374; 96375; 99285

== ENCOUNTER → 2019-04-08 | Outpatient (CLI) | payer BC ==
--- NOTE | 2019-04-09 05:05 | FL ---
EXAMINATION: Small bowel follow through DATE: 04/08/2019 CLINICAL INDICATION: 58-year-old female with anemia. COMPARISON: Correlation CT 01/24/2019 Total Fluoroscopy Time: 35 seconds Total images: 19. FINDINGS: Initial client executive image shows moderate stool burden. After contrast administration, a moderate to large sized hiatal hernia with essentially half the stom ach located in the lower chest is identified. Serial films were carried out to 3.5 hours. Barium is seen to reach the colon. Loops of jejunum and i leum are compressed and examined under fluoroscopy. At the 90 minute image, there is a patulous jejun al loop in the left paramedian mid to lower abdomen measuring 3.7 cm that does not appear to persist, likely transient. The small bowel loops otherwise have a normal-caliber. Mucosal pattern is within n ormal limits. No intrinsic or extrinsic process is suspected. IMPRESSION: 1. Small bowel transit time of 3.5 hours which is borderline increased. 2. Redemonstrated moderate to large hiatal hernia with half the stomach located in the lower thorax. 3. Transiently dilated jejunal loop in the mid to lower abdomen of questionable clinical significance . Otherwise, no specific abnormality seen on the small bowel follow-through. If persistent clinical c oncern, consider the utility of capsule endoscopy.
== END | disposition home or self-care (01) ==
LOC: RADFLMAIN 08:41
PROVIDERS: ATTEND Internal Medicine Hematology & Oncology
DX: K44.9 Diaphragmatic hernia without obstruction or gangrene (principal)
CPT/HCPCS: 74250

== ENCOUNTER → 2019-04-26 | Outpatient (CLI) | payer BC ==
--- NOTE | 2019-04-29 08:50 | MM ---
Reason for exam: additional evaluation requested from prior study. Last mammogram was performed 8 years and 8 months ago. History: Patient is postmenopausal. Physical Findings: Nurse Summary: 2 x 1.5cm nodule in the left breast at 11 o'clock (nurse TM). MG 3D Diag Mammo W/Cad MARY JANE Bilateral CC and MLO view(s) were taken. Prior study comparison: September 01, 2010, CAD bilateral diagnostic mammogram. The breast tissue is heterogeneously dense. This may lower the sensitivity of mammography. There is a highly suspicious 2.3 x 1.5cm left lower inner quadrant mass. Ultrasound will be performed. No suspicious abnormality on the right breast. These results were verbally communicated with the patient and result sheet given to the patient on 04/26/19. ASSESSMENT: Incomplete: need additional imaging evaluation, BI-RAD 0 RECOMMENDATION: Ultrasound of the left breast.
--- NOTE | 2019-04-29 08:52 | USB ---
Reason for exam: additional evaluation requested from abnormal screening. History: Patient is postmenopausal. US Breast LT Left complete breast ultrasound includes all four quadrants, the retroareolar region and axilla. Finding demonstrates a 2.3 x 2.2 x 2.2cm hypoechoic, vascular lesion at 10 o'clock. These results were verbally communicated with the patient and result sheet given to the patient on 04/26/19. ASSESSMENT: Highly suggestive of malignancy, BI-RAD 5 RECOMMENDATION: Ultrasound core biopsy of the left breast. Called Dr. Barclay's office with mammographic findings and has scheduled an appointment for the patient for 05/16/19 at 11:[address] Dejesus. Biopsy scheduled for 05/07/19 at 2:00. PRELIMINARY REPORT CALLED AND FAXED TO DR. DEJESUS ON 04/29/19.
== END | disposition home or self-care (01) ==
LOC: RADMAMWWP 12:51
PROVIDERS: ATTEND Nurse Practitioner Family
DX: N64.4 Mastodynia (principal); N63.21 Unspecified lump in the left breast, upper outer quadrant; R92.8 Other abnormal and inconclusive findings on diagnostic imaging of breast
CPT/HCPCS: 77062; 77066

== ENCOUNTER → 2019-05-07 | Day surgery (SDC) | payer BC ==
[2019-05-07 14:12] VITALS: BMI 34.3
[2019-05-07 14:13] VITALS: RESP 16
[2019-05-07 15:01] VITALS: BP 124/73; PULSE 58; TEMP 98.2
--- NOTE | 2019-05-07 15:06 | USB ---
EXAMINATION TYPE: US biopsy breast VAD LT, MG diagnostic mammo LT wo CAD DATE OF EXAM: 05/07/2019 CLINICAL HISTORY: N63. Breast Lump. Abnormal left mammogram and ultrasound. TECHNIQUE: Ultrasound guided core biopsy of left breast. COMPARISON: Left breast ultrasound dated 04/26/2019 FINDINGS: The procedure of ultrasound guided core biopsy was explained to the patient. Benefits, alternatives, and risks were discussed. An informed consent was then obtained. Preprocedural timeout was performed. The patient was placed in supine positioning for imaging and for the procedure. The overlying skin was prepped and draped in usual sterile fashion. 10 cc of 1% lidocaine was used as anesthetic into the skin and subcutaneous tissue up to a highly suspicious 2.3 cm mass at the 10:00 position in the left breast. Under ultrasound guidance, a 12-gauge vacuum assisted biopsy gun device was used to obtain 5 core samples. Following this, a ribbon-shaped biopsy marker was left in the mass. Postprocedural mammogram demonstrates appropriate biopsy marker placement. The patient tolerated the procedure well without any immediate complication. The patient was kept in the radiology department for short stay after the procedure and then discharged home in stable condition. IMPRESSION: Successful, uncomplicated ultrasound guided core biopsy of a highly suspicious mass within the left breast measuring 2.3 cm, full pathology results to follow. No suspicious axillary adenopathy on the ultrasound of 04/26/2019. Pathology Results: Malignant LEFT BREAST AT TEN O'CLOCK, ULTRASOUND GUIDED CORE BIOPSY: Infiltrating ductal carcinoma, Grade 2 ([place]). Recommendation Surgical consult of the left breast. Definitive surgical/medical management. [facility]
== END ==
LOC: RADUSWWP 13:55
PROVIDERS: ATTEND Surgery
DX: C50.912 Malignant neoplasm of unspecified site of left female breast (principal); Z17.0 Estrogen receptor positive status [ER+]
CPT/HCPCS: 88305; 88342; 88341; 77065; 19083; A4648; J2001

== ENCOUNTER 2019-06-03 11:02 | Day surgery (SDC) | payer BC ==
[2019-05-31 08:20] VITALS: BMI 34.3
--- NOTE | 2019-06-03 10:12 | P.HPADDEND ---
H&P Addendum H&P Addendum Date: 06/03/19 59-year-old female presenting today for elective resection recently diagnosed grade 2A left breast cancer. Size of lesion 2.3 cm by ultrasound. Recent biopsy showed grade 2 invasive ductal cancer. ER/VT positive, HER-2/len negative. Options previously reviewed with patient in detail. We'll proceed w ith left breast wire localization lumpectomy with sentinel lymph node biopsy and injection today. Risks of bleeding, infection, seroma, nerve injury, scarring, numbness, possible need for additional surgery, possible need for axillary belle dissection, possible lymphedema reviewed. She understands and wishes to proceed.
--- NOTE | 2019-06-03 10:18 | P.NAPBC ---
NAPBC Queries - NAPBC Queries Was patient's case review presented at [facility] tumor board? If no, comment.: No Was patient's pathology reviewed at [facility]? If no, comment.: Yes Was breast conservation surgery offered? If no, comment.: Yes Was sentinel node biopsy offered? If no, comment.: Yes Was diagnosis confirmed by percutaneous core biopsy? If no, comment.: Yes Is patient mastectomy patient?: Yes Was a preop referral to reconstructive surgeon offered?: Yes Clinical Stage: 2a
[~2019-06-03 11:02] MED LIST: DEXAMETHASONE SOD PHOSPHATE 10 MG/ML 1 ML VIAL IV ONE; HEPARIN SODIUM,PORCINE 5,000 UNIT/ML 1 ML VIAL SQ ONE; LACTATED RINGERS 1,000 ML IV SCH; MIDAZOLAM 2 MG/2 ML VIAL IV PRN; ONDANSETRON 4 MG/2 ML VIAL IVP ONE; Pre Op ABX Message 1 EACH MISC MISCELLANE ONE; SCOPOLAMINE 1.5MG/72HR PATCH TRANSDERM ONE; fentaNYL (PF) 50 MCG/ML 2 ML AMP IV PRN
[2019-06-03] MEDS ORDERED: ALPRAZolam 0.5 MG TAB PO ONE (11:15)
[2019-06-03] MEDS ORDERED: LIDOCAINE 1% INJ 10MG/ML (20 ML MDV) SQ ONE (12:02)
--- NOTE | 2019-06-03 12:48 | USB ---
EXAMINATION TYPE: US breast localization LT DATE OF EXAM: 06/03/2019 COMPARISON: NONE CLINICAL HISTORY: R92.8 ABNORMAL MAMMOGRAM. Technique: Mammographic images and ultrasound images are reviewed. Reports are reviewed. Due to good visualization on the ultrasound core biopsy ultrasound- guided wire localization was chosen. The procedure was explained to the patient, all questions were answered. Consent was obtained. A timeout was performed. The skin was cleansed with chlorhexidine. The skin and deeper breast tissue was anesthetized with 1% lidocaine. A midline to medial approach was chosen. Under ultrasound guidance a 7 cm needle was placed through the lesion. The wire was deployed through the needle and the needle withdrawn. Patient was transferred to mammography for postprocedure mammogram. Patient tolerated the procedure well. IMPRESSION: 1. Successful wire localization under ultrasound guidance. Recommendations: 1. Recommendations are pending pathology results. Pathology Results: Malignant A. SENTINEL NODE, BIOPSY: Lymph node negative for metastasis. CK7 and MICHELLE immunoperoxidase stains are confirmatory (controls appropriate). B. LEFT BREAST, LUMPECTOMY: Invasive ductal carcinoma (Grade 2) and ductal carcinoma in situ (DCIS). Invasive tumor involves the purple (posterior) and blue (anterior) margins. Accompanying component of lobular carcinoma in situ (LCIS). See Surgical Pathology Cancer Case Summary. Recommendation Surgical consult of the left breast. [facility]
[2019-06-03] MEDS ORDERED: SCOPOLAMINE 1.5MG/72HR PATCH TRANSDERM ONE (14:16)
[2019-06-03] MEDS ORDERED: PROPOFOL 10 MG/ML 20 ML VIAL IV ONE (14:19)
[2019-06-03] MEDS ORDERED: LIDOCAINE 1% INJ 10MG/ML (20 ML MDV) ONE (14:19)
[2019-06-03] MEDS ORDERED: fentaNYL (PF) 50 MCG/ML 2 ML AMP ONE (14:19)
[2019-06-03] MEDS ORDERED: MIDAZOLAM 2 MG/2 ML VIAL ONE (14:19)
[2019-06-03] MEDS ORDERED: METHYLENE BLUE 50 MG/10 ML AMPUL INJ ONE (14:38)
--- NOTE | 2019-06-03 14:54 | MM ---
Reason for exam: additional evaluation requested from abnormal screening. Last mammogram was performed 1 month ago. History: Patient is postmenopausal and has history of breast cancer at age 58. Malignant US biopsy breast VAD LT of the left breast, May 07, 2019. MG Diagnostic Mammo LT Wo CAD CC and MLO view(s) were taken of the left breast. Prior study comparison: May 07, 2019, left breast MG diagnostic mammo LT wo CAD. April 26, 2019, bilateral MG 3d diag mammo w/cad MARY JANE. ASSESSMENT: Post procedure mammogram for marker placement RECOMMENDATION: Ultrasound of both breasts in 6 months. PENDING PATHOLOGY RESULTS.
[2019-06-03] MEDS ORDERED: BUPIVACAINE (PF) 0.25% 30 ML VIAL SQ ONE (15:00)
[2019-06-03] MEDS ORDERED: LACTATED RINGERS 1,000 ML IV ONE (15:18)
--- NOTE | 2019-06-03 16:04 | NM ---
EXAMINATION TYPE: NM sentinel node injection DATE OF EXAM: 06/03/2019 COMPARISON: NONE INDICATION: Abnormal mammogram. Consent was obtained. A timeout was performed. Skin was cleansed with alcohol. Lymphoseek was inject ed in the upper outer quadrant periareolar region. The patient experienced discomfort the injection IMPRESSIONS: 1.. Successful injection for sentinel node evaluation.
[2019-06-03 16:08] VITALS: TEMP 97.3
[2019-06-03] MEDS ORDERED: NALOXONE 0.4 MG/ML 1 ML VIAL IV PRN (16:10)
[2019-06-03] MEDS ORDERED: traMADol 50 MG TAB PO PRN (16:10)
--- NOTE | 2019-06-03 16:15 | P.OP ---
Date of Procedure: 06/03/19 Procedure(s) Performed: REOPERATIVE DIAGNOSIS: Left breast cancer POSTOPERATIVE DIAGNOSIS: Same PROCEDURE: Left Breast wire localization lumpectomy with sentinel lymph node biopsy SURGEON: Natividad EBL: Minimal ANESTHESIA: General COMPLICATIONS: None OPERATIVE PROCEDURE: Patient was placed on the operating room table in the supine position. 2 mL of methylene blue was injected into the subareolar space. The breast was then massaged for 5 minutes. The breast was prepped and draped in usual sterile fashion. The left axilla was addressed at that time. The hot spot in the left axilla was identified. A small curvilinear incision was made using the scalpel. Dissection down through the subcutaneous tissues took place using electrocautery. Using the neoprobe I identified the location of the sentinel node. The blue lymphatics were identified and followed to this blue lymph node. This was normal in size. This was not indurated. There was no additional blue or radioactive activity in the axilla following that excision. No bleeding was seen. The subcutaneous tissues were closed using 3-0 Vicryl sutures. The skin was closed using 4-0 Monocryl sutures. The wire entrance site was then addressed. A curvilinear incision was made adjacent to the wire entrance site in the upper inner quadrant. I followed the wire down into the breast tissue. An adequate lumpectomy specimen then took place around the wire. Margins of 1-1.5 cm worth attempted to be achieved. The mass was palpable which aided our excision. Palpation of the specimen did not reveal any suspicious changes. No additional margins were taken. The specimen was painted the appropriate 6 colors. Clips were used to identify the lumpectomy cavity. The clip was confirmed to be within the lumpectomy specimen by radiology. The subcutaneous tissues were closed using 2-0 Vicryl and 3-0 Vicryl sutures. The skin was closed using a running 4-0 Monocryl stitch. Skin glue and sterile dressings were then applied. DISPOSITION: Stable to recovery room
[2019-06-03] MEDS ORDERED: diphenhydrAMINE 50 MG/ML 1 ML VIAL IVP ONE (16:20)
[2019-06-03 16:33] VITALS: RESP 16
[2019-06-03] MEDS ORDERED: traMADol 50 MG TAB PO ONE (17:32)
[2019-06-03 18:01] VITALS: BP 137/77; PULSE 79
--- NOTE | 2019-06-05 09:48 | MM ---
EXAMINATION TYPE: MG surgical specimen LT DATE OF EXAM: 06/03/2019 COMPARISON: 06/03/2019 HISTORY: Abnormal mammogram TECHNIQUE: Single specimen obtained with mammographic imaging FINDINGS: The wire is intact within the specimen. Surgical clip localized is evident. The spiculated density also localized appears to be within the specimen. This extends towards the margins. Ultrasound specimen was also obtained which demonstrates a wire within the specimen. The localized ar ea appears to reside within the specimen. IMPRESSION: 1. Successful wire localization and excision. Recommendations: 1. Recommendations are pending pathology results.
== END 2019-06-03 18:49 | disposition home or self-care (01) ==
LOC: OR 11:02
PROVIDERS: ATTEND Surgery
DX: C50.912 Malignant neoplasm of unspecified site of left female breast (principal); K21.9 Gastro-esophageal reflux disease without esophagitis; K44.9 Diaphragmatic hernia without obstruction or gangrene; D64.9 Anemia, unspecified; Z91.013 Allergy to seafood; Z88.5 Allergy status to narcotic agent; Z88.6 Allergy status to analgesic agent; Z90.710 Acquired absence of both cervix and uterus; Z17.0 Estrogen receptor positive status [ER+]; Z78.0 Asymptomatic menopausal state
CPT/HCPCS: 19301; 38525; 88342; 88307; 88341; 77065; 76098; 19285; 38792; A9520; J2250; J1200; J1644; J1100; J2405; J2001; J3010; J2704; Q9968

== ENCOUNTER 2019-07-08 12:08 | Day surgery (SDC) | payer BC ==
[2019-07-05 08:23] VITALS: BMI 34.3
[~2019-07-08 12:08] MED LIST changes: -SCOPOLAMINE 1.5MG/72HR PATCH TRANSDERM ONE; -fentaNYL (PF) 50 MCG/ML 2 ML AMP IV PRN
[2019-07-08] MEDS ORDERED: LIDOCAINE 1% 20 ML VIAL (10MG/ML) FOR IV START INTRADERMA ONE (12:50)
--- NOTE | 2019-07-08 13:36 | P.HPADDEND ---
H&P Addendum H&P Addendum Date: 07/08/19 No changes to the history and physical
[2019-07-08] MEDS ORDERED: SUCCINYLCHOLINE CHLORIDE 100 MG/5 ML SYR IV ONE (14:14)
[2019-07-08] MEDS ORDERED: fentaNYL (PF) 50 MCG/ML 2 ML AMP ONE (14:14)
[2019-07-08] MEDS ORDERED: LIDOCAINE 1% INJ 10MG/ML (20 ML MDV) ONE (14:14)
[2019-07-08] MEDS ORDERED: PROPOFOL 10 MG/ML 20 ML VIAL IV ONE (14:14)
[2019-07-08] MEDS ORDERED: MIDAZOLAM 2 MG/2 ML VIAL ONE (14:14)
[2019-07-08] MEDS ORDERED: ceFAZolin 1,000 MG VIAL IVPB ONE ×2 (14:20→14:45)
[2019-07-08] MEDS ORDERED: BUPIVACAINE (PF) 0.25% 30 ML VIAL SQ ONE (14:45)
[2019-07-08] MEDS ORDERED: LACTATED RINGERS 1,000 ML IV ONE (14:57)
[2019-07-08 15:40] VITALS: TEMP 96.8
[2019-07-08] MEDS ORDERED: HYDROcodone/APAP 5-325MG 1 EACH TAB PO PRN (15:46)
[2019-07-08] MEDS ORDERED: NALOXONE 0.4 MG/ML 1 ML VIAL IV PRN (15:46)
--- NOTE | 2019-07-08 15:48 | P.OP ---
Date of Procedure: 07/08/19 Procedure(s) Performed: REOPERATIVE DIAGNOSIS: Left breast cancer POSTOPERATIVE DIAGNOSIS: Same PROCEDURE: Left breast re-lumpectomy SURGEON: Natividad EBL: Minimal ANESTHESIA: General COMPLICATIONS: None OPERATIVE PROCEDURE: Patient was placed on the operating room table in the supine position. The left breast was prepped and draped in usual sterile fashion. The previous scar site was present at the 12:00 location. An incision was made around the previous scar excising that portion of skin. Dissection through the subcutaneous tissues took place using a combination of sharp dissection and electrocautery. I was able to identify the lumpectomy cavity through a small opening anteriorly. I was then able to fully excise the previous lumpectomy site using electrocautery and sharp dissection. We were very close anteriorly to the dermis. The specimen was painted the appropriate 6 colors. Clips were used to identify the lumpectomy cavity. The clip was confirmed to be within the lumpectomy specimen by radiology. The subcutaneous tissues were closed using 3-0 Vicryl sutures. The skin was closed using a running 4-0 Monocryl stitch. Skin glue and sterile dressings were then applied. DISPOSITION: Stable to recovery room left
[2019-07-08] MEDS: HYDROmorphone 0.5 MG/0.5 ML SYRINGE IVP PRN ×2 (16:20→16:35)
[2019-07-08] MEDS ORDERED: KETOROLAC 30 MG/ML 1 ML VIAL IVP ONE (16:35)
[2019-07-08 17:05] VITALS: RESP 16
[2019-07-08 17:32] VITALS: BP 112/67; PULSE 82
== END 2019-07-08 18:15 | disposition home or self-care (01) ==
LOC: OR 12:08
PROVIDERS: ATTEND Surgery
DX: C50.912 Malignant neoplasm of unspecified site of left female breast (principal); N60.12 Diffuse cystic mastopathy of left breast; K21.9 Gastro-esophageal reflux disease without esophagitis; D64.9 Anemia, unspecified; Z91.013 Allergy to seafood; Z88.5 Allergy status to narcotic agent; Z88.6 Allergy status to analgesic agent; Z90.710 Acquired absence of both cervix and uterus; Z98.891 History of uterine scar from previous surgery; Z98.890 Other specified postprocedural states
CPT/HCPCS: 88307; 19301; J2250; J1644; J1100; J2405; J0690; J2001; J3010; J1885; J0330; J2704; J1170

== ENCOUNTER → 2019-09-04 | Outpatient (CLI) | payer BC ==
--- NOTE | 2019-09-04 15:16 | BD ---
EXAMINATION TYPE: Axial Bone Density DATE OF EXAM: 09/04/2019 COMPARISON: NONE CLINICAL HISTORY: Height: 61.5 IN Weight: 206 LBS FRAX RISK QUESTIONS: Secondary Osteoporosis: 3. Menopause before 45: HYSTERECTOMY AGE 35 APPROX. RISK FACTORS HISTORY OF: Active: YES Diet low in dairy products/other sources of calcium: YES Postmenopausal woman: FRANCIA AGE 35 MEDICATIONS: Additional Medications: VIT D ONCE A WEEK Additional History: BREAST CANCER WITH RADIATION EXAM MEASUREMENTS: Bone mineral densitometry was performed using the [employer] System. Bone mineral density as measured about the Lumbar spine is: ----- L1-L4(G/cm2): 1.085 T Score Values are as follows: ----- L2: -1.6 ----- L3: 0.1 ----- L4: -0.3 ----- L1-L4: -0.8 Bone mineral density BASELINE Bone mineral density about the R hip (g/cm2): 0.762 Bone mineral density about the L hip (g/cm2): 0.824 T Score values are as follows: -----R Neck: -2.0 -----L Neck: -1.5 -----R Total: -1.0 -----L Total: -0.4 Bone mineral density BASELINE IMPRESSION: No evidence for osteoporosis or osteopenia NOTE: T-SCORE=SD OF THE YOUNG ADULT MEAN.
== END | disposition home or self-care (01) ==
LOC: RADBDWWP 13:22
PROVIDERS: ATTEND Internal Medicine Hematology & Oncology
DX: N95.1 Menopausal and female climacteric states (principal); C50.212 Malignant neoplasm of upper-inner quadrant of left female breast; Z88.6 Allergy status to analgesic agent; Z88.5 Allergy status to narcotic agent
CPT/HCPCS: 77080

== ENCOUNTER 2020-01-02 16:33 | Inpatient (IN) | payer BC ==
[2020-01-02] MEDS ORDERED: ONDANSETRON 4 MG/2 ML VIAL IVP STA (17:08)
[2020-01-02] MEDS ORDERED: diphenhydrAMINE 50 MG/ML 1 ML VIAL IVP STA (17:08)
[2020-01-02] MEDS ORDERED: SODIUM CHLORIDE 0.9% 1,000 ML IV STA (17:08)
[2020-01-02] MEDS ORDERED: MECLIZINE 12.5 MG TAB PO STA (17:08)
[2020-01-02 17:24] LABS: Basophils % (A) 0 %; Eosinophils # (A) 0.4 k/uL (0-0.7); Eosinophils % (A) 3 %; HCT 40.4 % (34.0-46.0); HGB 13.2 gm/dL (11.4-16.0); Lymphocytes # (A) 1.3 k/uL (1.0-4.8); Lymphocytes % (A) 12 %; MCH 31.4 pg (25.0-35.0); MCHC 32.7 g/dL (31.0-37.0); MCV 95.8 fL (80.0-100.0); Monocytes # (A) 0.5 k/uL (0-1.0); Monocytes % (A) 4 %; Neutrophils # (A) 8.9 k/uL (1.3-7.7); Neutrophils % (A) 80 %; Platelet Count 221 k/uL (150-450); RBC 4.22 m/uL (3.80-5.40); RDW 12.4 % (11.5-15.5); WBC 11.2 k/uL (3.8-10.6)
[2020-01-02] MEDS ORDERED: KETOROLAC 30 MG/ML 1 ML VIAL IVP STA (17:28)
--- NOTE | 2020-01-02 17:33 | ED ---
General Adult HPI - General Chief complaint: Dizziness Stated complaint: vertigo,abd pain Time Seen by Provider: 01/02/20 16:58 Source: patient Mode of arrival: wheelchair Limitations: physical limitation - History of Present Illness Initial comments: Patient is a 59-year-old female presenting to the emergency Department with complaints of dizziness, nausea, vomiting, abdominal pain this started suddenly approximately 1 hour prior to arrival. She states she started to feel dizzy and then the abdominal pain started as well as nausea. Patient states she has never experienced anything like this before. She denies a history of vertigo. She denies any pertinent past medical history and takes no medications. She states her abdominal pain is all over and is not specific. She states it is an 8 /10. She denies any abdominal surgeries in the past. She denies any urinary complaints and has been wrapping regular bowel movements. She denies any falls or trauma to her head. She denies having a headache, blurry vision. She has no further complaints. Upon arrival to the ER, her vital signs are stable. - Related Data Home Medications Medication Instructions Recorded Confirmed No Known Home Medications 07/04/19 01/02/20 Allergies Allergy/AdvReac Type Severity Reaction Status Date / Time aspirin Allergy Anaphylaxis Verified 01/02/20 17:38 codeine Allergy Anaphylaxis Verified 01/02/20 17:38 shellfish derived [Shellfish] Allergy Anaphylaxis Verified 01/02/20 17:38 Review of Systems ROS Statement: Those systems with pertinent positive or pertinent negative responses have been documented in the HPI. ROS Other: All systems not noted in ROS Statement are negative. Past Medical History Past Medical History: Cancer, GERD/Reflux Additional Past Medical History / Comment(s): Light headed occasionally, hiatal hernia, R carpal tunnel syndrome, back pain., left breast cancer, anemia. History of Any Multi-Drug Resistant Organisms: None Reported Past Surgical History: Section, Hysterectomy Additional Past Surgical History / Comment(s): x 3, cervical lymph node excision, EGD, L carpal tunnel release. Past Anesthesia/Blood Transfusion Reactions: Motion Sickness, Postoperative Nausea & Vomiting (PONV) Additional Past Anesthesia/Blood Transfusion Reaction / Comment(s): blood transfusion- no reaction Past Psychological History: No Psychological Hx Reported Smoking Status: Never smoker Past Alcohol Use History: None Reported Past Drug Use History: None Reported - Past Family History Father Family Medical History: No Reported History Additional Family Medical History / Comment(s): . Mother Additional Family Medical History / Comment(s): Anemia General Exam - General Exam Comments Initial Comments: GENERAL: Patient looks fatigued, actively nauseous and vomiting in the ER. HEAD: Atraumatic, normocephalic. EYES: Pupils equal round and reactive to light, extraocular movements intact, sclera anicteric, conjunctiva are normal. There is no nystagmus. ENT: TMs normal, nares patent, oropharynx clear without exudates. Moist mucous membr anes. NECK: Normal range of motion, supple without lymphadenopathy or JVD. LUNGS: Breath sounds clear to auscultation bilaterally and equal. No wheezes rales or rhonchi. HEART: Regular rate and rhythm without murmurs, rubs or gallops. ABDOMEN: Generalized abdominal pain on palpation, no specific area. Soft, normoactive bowel sounds. No guarding, no rebound. No masses appreciated. : Deferred EXTREMITIES: Normal range of motion, no pitting or edema. No clubbing or cyanosis. She has 5 out of 5 strength in upper and lower extremities bilaterally. Sensation is equal and bilateral. NEUROLOGICAL: Cranial nerves II through XII grossly intact. Normal speech, normal gait. PSYCH: Normal mood, normal affect. SKIN: Warm, Dry, normal turgor, no rashes or lesions noted. Limitations: physical limitation Expanded Speech: Present: fluid speech Cranial nerves: Tongue Deviation: Normal, Nystagmus: Normal, Facial Sensation: Normal Cerebellar function: Finger to Nose: Normal Upper motor neuron: Pronator Drift: Normal Course Vital Signs 01/02/20 01/02/20 01/02/20 16:44 16:46 18:32 Temperature 97.8 F Pulse Rate 79 81 Pulse Rate [ Right] Respiratory 18 16 16 Rate Blood Pressure 139/72 102/54 Blood Pressure [Right Arm] O2 Sat by Pulse 96 100 Oximetry 01/02/20 01/03/20 01/03/20 22:00 01:00 05:00 Temperature 97.2 F L 97.6 F Pulse Rate 80 77 70 Pulse Rate [ Right] Respiratory 17 15 15 Rate Blood Pressure 107/66 107/60 110/72 Blood Pressure [Right Arm] O2 Sat by Pulse 98 98 98 Oximetry 01/03/20 01/03/20 08:00 12:00 Temperature 97.8 F 98.2 F Pulse Rate Pulse Rate [ 73 70 Right] Respiratory 10 L 12 Rate Blood Pressure Blood Pressure 100/58 100/56 [Right Arm] O2 Sat by Pulse 100 100 Oximetry EKG Findings - EKG Comments: EKG Findings:: Sinus rhythm with occasional PVCs, and otherwise normal ECG. No signs of acute ischemia. Ventricular rate 67, NJ interval 174, QTC 426. Medical Decision Making - Medical Decision Making Patient is a 59-year-old female here for nausea, vomiting, abdominal pain as well as dizziness that started this morning. She did go to her PCPs office today for an exam with no acute findings. Vital signs are stable. Her exam reveals no neural deficits, generalized abdominal discomfort, no specific area. Lab work showed very slight leukocytosis, no other acute findings, lactic acid is normal. EKG is normal. CT of the abdomen shows no acute findings. Patient was given fluids, Zofran, Toradol, Benadryl, meclizine. She states she she has improvement in her abdominal pain and nausea and vomiting however she is still having dizziness. I did help patient use a bedside commode and if she keeps her eyes closed her symptoms are not apparent. As soon as she opens her eyes she states the room is spinning. Patient has had no more active vomiting in the ER. I discussed this case with Dr. Rodney Harmon's group who agrees to accept the patient with neuro consult. Patient is agreement with this as well. Discussed with Dr. Hernandes. - Lab Data Result diagrams: 01/03/20 15:05 01/03/20 15:05 Lab Results 01/02/20 01/02/20 01/02/20 Range/Units 17:16 17:16 17:16 WBC 11.2 H (3.8-10.6) k/uL RBC 4.22 (3.80-5.40) m/uL Hgb 13.2 (11.4-16.0) gm/dL Hct 40.4 (34.0-46.0) % MCV 95.8 (80.0-100.0) fL MCH 31.4 (25.0-35.0) pg MCHC 32.7 (31.0-37.0) g/dL RDW 12.4 (11.5-15.5) % Plt Count 221 (150-450) k/uL Neutrophils % 80 % Lymphocytes % 12 % Monocytes % 4 % Eosinophils % 3 % Basophils % 0 % Neutrophils # 8.9 H (1.3-7.7) k/uL Lymphocytes # 1.3 (1.0-4.8) k/uL Monocytes # 0.5 (0-1.0) k/uL Eosinophils # 0.4 (0-0.7) k/uL Basophils # 0.0 (0-0.2) k/uL Sodium 136 L (137-145) mmol/L Potassium 3.8 (3.5-5.1) mmol/L Chloride 102 (98-107) mmol/L Carbon Dioxide 24 (22-30) mmol/L Anion Gap 10 mmol/L BUN 13 (7-17) mg/dL Creatinine 0.61 (0.52-1.04) mg/dL Est GFR (CKD-EPI)AfAm >90 (>60 ml/min/1.73 sqM) Est GFR (CKD-EPI)NonAf >90 (>60 ml/min/1.73 sqM) Glucose 181 H (74-99) mg/dL Plasma Lactic Acid Alejandro 1.3 (0.7-2.0) mmol/L Calcium 9.4 (8.4-10.2) mg/dL Total Bilirubin 1.0 (0.2-1.3) mg/dL AST 23 (14-36) U/L ALT 21 (4-34) U/L Alkaline Phosphatase 123 (38-126) U/L Total Protein 7.0 (6.3-8.2) g/dL Albumin 4.1 (3.5-5.0) g/dL Lipase 63 (23-300) U/L Urine Color Urine Appearance (Clear) Urine pH (5.0-8.0) Ur Specific [place] (1.001-1.035) Urine Protein (Negative) Urine Glucose (UA) (Negative) Urine Ketones (Negative) Urine Blood (Negative) Urine Nitrite (Negative) Urine Bilirubin (Negative) Urine Urobilinogen (<2.0) mg/dL Ur Leukocyte Esterase (Negative) Urine RBC (0-5) /hpf Urine WBC (0-5) /hpf Ur Squamous Epith Cells (0-4) /hpf Urine Bacteria (None) /hpf Hyaline Casts (0-2) /lpf Urine Mucus (None) /hpf 01/02/20 Range/Units 19:40 WBC (3.8-10.6) k/uL RBC (3.80-5.40) m/uL Hgb (11.4-16.0) gm/dL Hct (34.0-46.0) % MCV (80.0-100.0) fL MCH (25.0-35.0) pg MCHC (31.0-37.0) g/dL RDW (11.5-15.5) % Plt Count (150-450) k/uL Neutrophils % % Lymphocytes % % Monocytes % % Eosinophils % % Basophils % % Neutrophils # (1.3-7.7) k/uL Lymphocytes # (1.0-4.8) k/uL Monocytes # (0-1.0) k/uL Eosinophils # (0-0.7) k/uL Basophils # (0-0.2) k/uL Sodium (137-145) mmol/L Potassium (3.5-5.1) mmol/L Chloride (98-107) mmol/L Carbon Dioxide (22-30) mmol/L Anion Gap mmol/L BUN (7-17) mg/dL Creatinine (0.52-1.04) mg/dL Est GFR (CKD-EPI)AfAm (>60 ml/min/1.73 sqM) Est GFR (CKD-EPI)NonAf (>60 ml/min/1.73 sqM) Glucose (74-99) mg/dL Plasma Lactic Acid Alejandro (0.7-2.0) mmol/L Calcium (8.4-10.2) mg/dL Total Bilirubin (0.2-1.3) mg/dL AST (14-36) U/L ALT (4-34) U/L Alkaline Phosphatase (38-126) U/L Total Protein (6.3-8.2) g/dL Albumin (3.5-5.0) g/dL Lipase (23-300) U/L Urine Color Yellow Urine Appearance Clear (Clear) Urine pH 6.0 (5.0-8.0) Ur Specific [place] >1.050 H (1.001-1.035) Urine Protein Negative (Negative) Urine Glucose (UA) Negative (Negative) Urine Ketones 1+ H (Negative) Urine Blood Trace H (Negative) Urine Nitrite Negative (Negative) Urine Bilirubin Negative (Negative) Urine Urobilinogen <2.0 (<2.0) mg/dL Ur Leukocyte Esterase Trace H (Negative) Urine RBC 1 (0-5) /hpf Urine WBC 1 (0-5) /hpf Ur Squamous Epith Cells 2 (0-4) /hpf Urine Bacteria Rare H (None) /hpf Hyaline Casts 3 H (0-2) /lpf Urine Mucus Occasional H (None) /hpf Disposition Clinical Impression: Vertigo, Dizziness, Nausea & vomiting, Abdominal pain Disposition: ADMITTED IP TO THIS [facility] Condition: Stable Decision Date: 01/02/20 Decision Time: 19:58
[2020-01-02 18:13] LABS: ALT 21 U/L (4-34); AST 23 U/L (14-36); African American GFR (CKD) >90 (>60 ml/min/1.73 sqM); Albumin 4.1 g/dL (3.5-5.0); Alkaline Phosphatase 123 U/L (38-126); Anion Gap 10 mmol/L; Blood Urea Nitrogen 13 mg/dL (7-17); Calcium 9.4 mg/dL (8.4-10.2); Carbon Dioxide 24 mmol/L (22-30); Chloride 102 mmol/L (98-107); Glucose 181 mg/dL (74-99); Non-African American GFR(CKD) >90 (>60 ml/min/1.73 sqM); Potassium 3.8 mmol/L (3.5-5.1); Sodium 136 mmol/L (137-145)
--- NOTE | 2020-01-02 18:26 | CT ---
EXAMINATION TYPE: CT abdomen pelvis w con DATE OF EXAM: 01/02/2020 COMPARISON: 01/24/2019 HISTORY: Generalized abdominal pain starting [address] DLP: 1672.1 mGycm Automated exposure control for dose reduction was used. CONTRAST: Performed with IV Contrast, patient injected with 100ml mL of Isovue 300. Multiple axial sections were obtained from the diaphragm to the floor the pelvis with IV contrast Iso memo 100 mL. FINDINGS: There is hiatal hernia. There is no pleural effusion. There is mild subsegmental atelectasis at the l trina bases. Heart size is normal. Liver spleen pancreas gallbladder appear normal. Bile ducts are not dilated. There is no adrenal mass. Kidneys show satisfactory contrast opacification. There is no hydronephrosi s. Delayed images show normal renal excretion. Ureters are not dilated. There is no retroperitoneal a denopathy. Bladder distends smoothly. There is no inguinal hernia. There are phleboliths in the pelvi s. There is no mesenteric edema. There is no ascites or free air. There is no evidence of a bowel obstru ction. Appendix is lateral and posterior and appears normal. The bony pelvis is intact. Lumbar spine is intact. There is no compression fracture. Hip joints are i ntact. IMPRESSION: Mild subsegmental atelectasis at the lung bases. Large hiatal hernia. No acute abnormality of the abd omen pelvis. Normal appendix..
[2020-01-02] MEDS ORDERED: NALOXONE 0.4 MG/ML 1 ML VIAL IV PRN (19:52)
[2020-01-02] MEDS ORDERED: ONDANSETRON 4 MG/2 ML VIAL IVP PRN (19:52)
[2020-01-02 20:02] LABS: Appearance,Urine Clear (Clear); Bacteria,Urine Rare /hpf; Bilirubin,Urine Negative (Negative); Blood,Urine Trace (Negative); Color,Urine Yellow; Glucose,Urine (UA) Negative (Negative); Hyaline Casts,Urine 3 /lpf (0-2); Ketones,Urine 1+ (Negative); Leukocyte Esterase,Urine Trace (Negative); Mucus,Urine Occasional /hpf; Nitrite,Urine Negative (Negative); Protein,Urine Negative (Negative); RBC,Urine 1 /hpf (0-5); Squamous Epithelial Cell,Urine 2 /hpf (0-4); Urobilinogen,Urine <2.0 mg/dL (<2.0); WBC,Urine 1 /hpf (0-5)
[2020-01-02 20:04] LABS: Specific Gravity,Urine >1.050 (1.001-1.035)
--- NOTE | 2020-01-02 20:54 | CT ---
EXAMINATION TYPE: CT brain wo con DATE OF EXAM: 01/02/2020 COMPARISON: 07/28/2010 HISTORY: Dizziness CT DLP: 1076.4 mGycm Automated exposure control for dose reduction was used. Ventricles have normal size. There is no mass effect nor midline shift. There is no sign of intracran ial hemorrhage. The calvarium is intact. There is no evidence of cerebral edema. IMPRESSION: Negative unenhanced head CT scan. No change.
[2020-01-02] MEDS: SODIUM CHLORIDE 0.9% 1,000 ML IV SCH (21:45)
[2020-01-03] MEDS: SODIUM CHLORIDE 0.9% 1,000 ML IV SCH (13:56)
--- NOTE | 2020-01-03 14:32 | P.HPIM ---
History of Present Illness This is a pleasant 59 years old female with past medical history of Gastroesophageal reflux disease, hiatal hernia, chronic back pain, left breast cancer that she follows up with Dr. Hathaway for it, motion sickness. Patient presents because of view different symptoms, she was feeling dizzy, nauseated and has difficulty walking for short time. Associated with lightheadedness for 2 weeks on and off. Yesterday she went to see her family doctor for known feeling well and to check her tear although she does not complain from ear pain and her are exam was unremarkable, we checked her for orthostasis and vertical and she's been told she does not have it and prescribed him some pain medication and her way out and getting her prescription and he says she didn't feel well she felt dizzy and could not walk back to her car so she called her son who brought her to the emergency room Yesterday also she felt some abdominal pain is resolved with pain medication. Currently she denies dizziness, no blurred vision, her abdominal pain is resolved. However she still feels not herself She denies recent history of infection or common called. No sick contacts. No history of smoking, call or illicit drugs. She has history of breast cancer with no metastases, patient told me she did not get chemotherapy before however november she got radiotherapy. Vitals are stable. She has mild leukocytosis of 11.2 K, sodium 136, rest of CBC, BMP and liver enzymes were unremarkable. Urinalysis looks like concentrated sample. CT of the brain: No acute process by radiologist. EKG showed normal sinus rhythm at [address]-T changes, QTC is 450. CT of the abdomen and pelvis with contrast showing hiatal hernia, In the emergency room she doesn't Benadryl, meclizine, 1 L of normal saline and continue with 60 mL/h, Zofran and Toradol. Neurology service is already consulted Review of Systems CONSTITUTIONAL: No fever, no malaise, no fatigue. HEENT: No recent visual problems or hearing problems. Denied any sore throat. CARDIOVASCULAR: No orthopnea, PND, no palpitations, no syncope. PULMONARY: No shortness of breath, no cough, no hemoptysis. GASTROINTESTINAL: No diarrhea, no nausea, no vomiting, no abdominal pain. Normoactive bowel sounds. NEUROLOGICAL: No headaches, no weakness, no numbness. HEMATOLOGICAL: Denies any bleeding or petechiae. GENITOURINARY: Denies any burning micturition, frequency, or urgency. MUSCULOSKELETAL/RHEUMATOLOGICAL: Denies any joint pain, swelling, or any muscle pain. ENDOCRINE: Denies any polyuria or polydipsia. Past Medical History Past Medical History: Cancer, GERD/Reflux Additional Past Medical History / Comment(s): Light headed occasionally, hiatal hernia, R carpal tunnel syndrome, back pain., left breast cancer, anemia. History of Any Multi-Drug Resistant Organisms: None Reported Past Surgical History: Section, Hysterectomy Additional Past Surgical History / Comment(s): x 3, cervical lymph node excision, EGD, L carpal tunnel release. Past Anesthesia/Blood Transfusion Reactions: Motion Sickness, Postoperative Nausea & Vomiting (PONV) Additional Past Anesthesia/Blood Transfusion Reaction / Comment(s): blood tra nsfusion- no reaction Past Psychological History: No Psychological Hx Reported Additional Psychological History / Comment(s): . Smoking Status: Never smoker Past Alcohol Use History: None Reported Past Drug Use History: None Reported - Past Family History Father Family Medical History: No Reported History Additional Family Medical History / Comment(s): . Mother Additional Family Medical History / Comment(s): Anemia Medications and Allergies Home Medications Medication Instructions Recorded Confirmed Type No Known Home Medications 07/04/19 01/02/20 History Allergies Allergy/AdvReac Type Severity Reaction Status Date / Time aspirin Allergy Anaphylaxis Verified 01/02/20 17:38 codeine Allergy Anaphylaxis Verified 01/02/20 17:38 shellfish derived [Shellfish] Allergy Anaphylaxis Verified 01/02/20 17:38 Physical Exam Vitals: Vital Signs Temp Pulse Pulse Resp BP BP Pulse Ox 01/03/20 12:00 98.2 F 70 12 100/56 100 01/03/20 08:00 97.8 F 73 10 L 100/58 100 01/03/20 05:00 97.6 F 70 15 110/72 98 01/03/20 01:00 77 15 107/60 98 01/02/20 22:00 97.2 F L 80 17 107/66 98 01/02/20 18:32 81 16 102/54 100 01/02/20 16:46 16 01/02/20 16:44 97.8 F 79 18 139/72 96 Intake and Output 01/02/20 01/03/20 01/03/20 22:59 06:59 14:59 Other: Weight 99.79 kg 99.79 kg GENERAL: The patient is alert and oriented x3, not in any acute distress. Well developed, well nourished. HEENT: Pupils are round and equally reacting to light. EOMI. No scleral icterus. No conjunctival pallor. Normocephalic, atraumatic. No pharyngeal erythema. No thyromegaly. CARDIOVASCULAR: S1 and S2 present. No murmurs, rubs, or gallops. PULMONARY: Chest is clear to auscultation, no wheezing or crackles. ABDOMEN: Soft, nontender, nondistended, normoactive bowel sounds. No palpable organomegaly. MUSCULOSKELETAL: No joint swelling or deformity. EXTREMITIES: No cyanosis, clubbing, or pedal edema. NEUROLOGICAL: Gross neurological examination did not reveal any focal deficits. SKIN: No rashes. No petechiae Results CBC & Chem 7: 01/02/20 17:16 01/02/20 17:16 Labs: Abnormal Lab Results - Last 24 Hours (Table) 01/02/20 01/02/20 01/02/20 Range/Units 17:16 17:16 19:40 WBC 11.2 H (3.8-10.6) k/uL Neutrophils # 8.9 H (1.3-7.7) k/uL Sodium 136 L (137-145) mmol/L Glucose 181 H (74-99) mg/dL Ur Specific [place] >1.050 H (1.001-1.035) Urine Ketones 1+ H (Negative) Urine Blood Trace H (Negative) Ur Leukocyte Esterase Trace H (Negative) Urine Bacteria Rare H (None) /hpf Hyaline Casts 3 H (0-2) /lpf Urine Mucus Occasional H (None) /hpf Thrombosis Risk Factor Assmnt - Choose All That Apply Any of the Below Risk Factors Present?: Yes Each Factor Represents 1 point: Age 41-60 years, Obesity (BMI >25) Other Risk Factors: No Other congenital or acquired thrombophilia - If yes, enter type in comment: No Thrombosis Risk Factor Assessment Total Risk Factor Score: 2 Thrombosis Risk Factor Assessment Level: Low Risk Assessment and Plan Assessment: Episodes of lightheadedness and dizziness associated with nausea and abdominal pain. Gastroesophageal esophageal reflux disease. Hiatal hernia Chronic back pain History of left breast cancer History of motion sickness Plan: This is a pleasant 59 years old female who presents with dizziness and abdominal pain. Continue with monitoring. Continue with hydration react check orthostasis. Follow-up neurology recommendation . Labs and medication were reviewed.. Continue same treatment. Continue with symptomatic treatment. Resume home medication. Monitor lytes and vitals. DVT and GI prophylaxis. Further recommendations of the clinical course of the patient DVT prophylaxis: Subcutaneous heparin GI Prophylaxis: Pepcid PT/OT: Pending Prognosis is guarded
[2020-01-03] MEDS ORDERED: KETOROLAC 30 MG/ML 1 ML VIAL IVP STA (15:31)
[2020-01-03 15:36] LABS: Basophils % (A) 1 %; Eosinophils # (A) 0.3 k/uL (0-0.7); Eosinophils % (A) 5 %; HGB 11.5 gm/dL (11.4-16.0); Hypochromasia Slight; Lymphocytes # (A) 0.9 k/uL (1.0-4.8); Lymphocytes % (A) 18 %; MCH 30.1 pg (25.0-35.0); MCHC 31.1 g/dL (31.0-37.0); MCV 96.8 fL (80.0-100.0); Mean Platelet Volume 8.1; Monocytes # (A) 0.3 k/uL (0-1.0); Monocytes % (A) 5 %; Neutrophils # (A) 3.5 k/uL (1.3-7.7); Neutrophils % (A) 69 %; Platelet Count 180 k/uL (150-450); RBC 3.83 m/uL (3.80-5.40); RDW 12.5 % (11.5-15.5)
[2020-01-03 15:49] LABS: African American GFR (CKD) >90 (>60 ml/min/1.73 sqM); Anion Gap 5 mmol/L; Blood Urea Nitrogen 13 mg/dL (7-17); Calcium 8.7 mg/dL (8.4-10.2); Carbon Dioxide 27 mmol/L (22-30); Chloride 105 mmol/L (98-107); Glucose 89 mg/dL (74-99); Magnesium 2.1 mg/dL (1.6-2.3); Non-African American GFR(CKD) >90 (>60 ml/min/1.73 sqM); Potassium 4.1 mmol/L (3.5-5.1); Sodium 137 mmol/L (137-145)
[2020-01-03] MEDS: LIDOCAINE 5% PATCH TOPICAL SCH (17:20)
[2020-01-03] MEDS ORDERED: HEPARIN SODIUM,PORCINE 5,000 UNIT/ML 1 ML VIAL SQ SCH (21:00)
[2020-01-03] MEDS: FAMOTIDINE 20 MG/2 ML VIAL IV SCH (21:45)
[2020-01-03] MEDS: HEPARIN SODIUM,PORCINE 5,000 UNIT/ML 1 ML VIAL SQ SCH (21:45)
[2020-01-04] MEDS: SODIUM CHLORIDE 0.9% 1,000 ML IV SCH ×2 (05:34→22:01)
[2020-01-04] MEDS: FAMOTIDINE 20 MG/2 ML VIAL IV SCH ×2 (08:04→22:00)
[2020-01-04] MEDS: IBUPROFEN 400 MG TAB PO PRN ×2 (08:04→18:14)
[2020-01-04] MEDS: HEPARIN SODIUM,PORCINE 5,000 UNIT/ML 1 ML VIAL SQ SCH ×2 (08:04→22:00)
[2020-01-04] MEDS: LIDOCAINE 5% PATCH TOPICAL SCH (18:10)
--- NOTE | 2020-01-04 20:27 | P.PN ---
Subjective This is a pleasant 59 years old female with past medical history of Gastroesophageal reflux disease, hiatal hernia, chronic back pain, left breast c ancer that she follows up with Dr. Hathaway for it, motion sickness. Patient presents because of view different symptoms, she was feeling dizzy, nauseated and has difficulty walking for short time. Associated with lightheadedness for 2 weeks on and off. Yesterday she went to see her family doctor for known feeling well and to check her tear although she does not complain from ear pain and her are exam was unremarkable, we checked her for orthostasis and vertical and she's been told she does not have it and prescribed him some pain medication and her way out and getting her prescription and he says she didn't feel well she felt dizzy and could not walk back to her car so she called her son who brought her to the emergency room Yesterday also she felt some abdominal pain is resolved with pain medication. Currently she denies dizziness, no blurred vision, her abdominal pain is resolved. However she still feels not herself She denies recent history of infection or common called. No sick contacts. No history of smoking, call or illicit drugs. She has history of breast cancer with no metastases, patient told me she did not get chemotherapy before however november she got radiotherapy. Vitals are stable. She has mild leukocytosis of 11.2 K, sodium 136, rest of CBC, BMP and liver enzymes were unremarkable. Urinalysis looks like concentrated sample. CT of the brain: No acute process by radiologist. EKG showed normal sinus rhythm at [address]-T changes, QTC is 450. CT of the abdomen and pelvis with contrast showing hiatal hernia, In the emergency room she doesn't Benadryl, meclizine, 1 L of normal saline and continue with 60 mL/h, Zofran and Toradol. Neurology service is already consulted 01/04/2020 is awake and alert, her symptoms improved including dizziness, no vertigo, she denies headache, blurred vision, no neck pain. No nausea or vomiting. No ear pain or tinnitus She still complaining of from low back pain that was more severe earlier morning as she got one pill of hypo-profane and her pain subsided to 2/10 Patient reports lidocaine patches helping her and she is walking to the restroom [id number] Pending physical therapy evaluation Review of Systems CONSTITUTIONAL: No fever, no malaise, no fatigue. HEENT: No recent visual problems or hearing problems. Denied any sore throat. CARDIOVASCULAR: No orthopnea, PND, no palpitations, no syncope. PULMONARY: No shortness of breath, no cough, no hemoptysis. GASTROINTESTINAL: No diarrhea, no nausea, no vomiting, no abdominal pain. Normoactive bowel sounds. NEUROLOGICAL: No headaches, no weakness, no numbness. HEMATOLOGICAL: Denies any bleeding or petechiae. GENITOURINARY: Denies any burning micturition, frequency, or urgency. MUSCULOSKELETAL/RHEUMATOLOGICAL: Denies any joint pain, swelling, or any muscle pain. ENDOCRINE: Denies any polyuria or polydipsia. Active Medications Generic Name Dose Route Start Last Admin Trade Name Freq PRN Reason Stop Dose Admin Famotidine 20 mg 01/03/20 21:00 01/04/20 08:04 Pepcid IV 20 mg Q12HR FRANCISCO Administration Heparin Sodium (Porcine) 5,000 unit 01/03/20 21:00 01/04/20 08:04 Heparin SQ 5,000 unit Q12HR FRANCISCO Administration Sodium Chloride 1,000 mls @ 60 mls/hr 01/02/20 20:00 01/04/20 05:34 Saline 0.9% IV 60 mls/hr .[id number] FRANCISCO Administration Ibuprofen 400 mg 01/02/20 19:52 01/04/20 08:04 Motrin PO 400 mg Q6HR PRN Administration Mild Pain or Fever > 100.5 Ketorolac Tromethamine 30 mg 01/03/20 15:31 Toradol IVP 01/07/20 15:32 Q6HR PRN Pain Lidocaine 1 patch 01/03/20 16:00 01/03/20 17:20 Lidoderm TOPICAL 1 patch DAILY@1600 FRANCISCO Administration Naloxone HCl 0.2 mg 01/02/20 19:52 Narcan IV Q2M PRN Opioid Reversal Ondansetron HCl 4 mg 01/02/20 19:52 01/03/20 12:32 Zofran IVP 4 mg Q8HR PRN Administration Nausea And Vomiting Objective - Vital Signs Vital signs: Vital Signs Temp 98.3 F 01/04/20 08:08 Pulse 74 01/04/20 08:08 Resp 16 01/04/20 08:08 BP 162/75 01/04/20 08:08 Pulse Ox 96 01/04/20 08:08 Intake & Output 01/03/20 01/04/20 01/04/20 18:59 06:59 18:59 Intake Total 200 Balance 200 Weight 99.79 kg Intake: Oral 200 Other: Voiding Method Toilet Toilet Toilet # Voids 1 - Exam GENERAL: The patient is alert and oriented x3, not in any acute distress. Well developed, well nourished. HEENT: Pupils are round and equally reacting to light. EOMI. No scleral icterus. No conjunctival pallor. Normocephalic, atraumatic. No pharyngeal erythema. No thyromegaly. CARDIOVASCULAR: S1 and S2 present. No murmurs, rubs, or gallops. PULMONARY: Chest is clear to auscultation, no wheezing or crackles. ABDOMEN: Soft, nontender, nondistended, normoactive bowel sounds. No palpable organomegaly. MUSCULOSKELETAL: No joint swelling or deformity. EXTREMITIES: No cyanosis, clubbing, or pedal edema. NEUROLOGICAL: Gross neurological examination did not reveal any focal deficits. -Gait: Patient is able to walk with some assistance, she has some difficulty due to pain in her lower back. SKIN: No rashes. no petechiae - Labs CBC & Chem 7: 01/03/20 15:05 01/03/20 15:05 Labs: Abnormal Lab Results - Last 24 Hours (Table) 01/03/20 Range/Units 15:05 Lymphocytes # 0.9 L (1.0-4.8) k/uL Assessment and Plan Assessment: Episodes of lightheadedness and dizziness associated with nausea and abdominal pain. Gastroesophageal esophageal reflux disease. Hiatal hernia Chronic back pain History of left breast cancer History of motion sickness Plan: This is a pleasant 59 years old female who presents with dizziness and abdominal pain. Which were resolved. However she still complained from low back pain. She thinks her lidocaine patch help her so we'll keep that, she is also on Motrin. Physical therapy evaluation is pending. Patient might benefit from orthopedic consult Labs and medication were reviewed.. Continue same treatment. Continue with symptomatic treatment. Resume home medication. Monitor lytes and vitals. DVT and GI prophylaxis. Further recommendations of the clinical course of the patient DVT prophylaxis: Subcutaneous heparin GI Prophylaxis: Pepcid PT/OT: Pending Prognosis is guarded
[2020-01-05] MEDS: KETOROLAC 30 MG/ML 1 ML VIAL IVP PRN ×2 (04:50→12:51)
[2020-01-05] MEDS: IBUPROFEN 400 MG TAB PO PRN (08:19)
[2020-01-05] MEDS: FAMOTIDINE 20 MG/2 ML VIAL IV SCH (08:20)
[2020-01-05] MEDS: HEPARIN SODIUM,PORCINE 5,000 UNIT/ML 1 ML VIAL SQ SCH ×2 (08:20→21:26)
[2020-01-05] MEDS ORDERED: HYDROcodone/APAP 5-325MG 1 EACH TAB PO PRN (14:21)
--- NOTE | 2020-01-05 14:38 | P.PN ---
Subjective This is a pleasant 59 years old female with past medical history of Gastroesophageal reflux disease, hiatal hernia, chronic back pain, left breast c ancer that she follows up with Dr. Hathaway for it, motion sickness. Patient presents because of view different symptoms, she was feeling dizzy, nauseated and has difficulty walking for short time. Associated with lightheadedness for 2 weeks on and off. Yesterday she went to see her family doctor for known feeling well and to check her tear although she does not complain from ear pain and her are exam was unremarkable, we checked her for orthostasis and vertical and she's been told she does not have it and prescribed him some pain medication and her way out and getting her prescription and he says she didn't feel well she felt dizzy and could not walk back to her car so she called her son who brought her to the emergency room Yesterday also she felt some abdominal pain is resolved with pain medication. Currently she denies dizziness, no blurred vision, her abdominal pain is resolved. However she still feels not herself She denies recent history of infection or common called. No sick contacts. No history of smoking, call or illicit drugs. She has history of breast cancer with no metastases, patient told me she did not get chemotherapy before however november she got radiotherapy. Vitals are stable. She has mild leukocytosis of 11.2 K, sodium 136, rest of CBC, BMP and liver enzymes were unremarkable. Urinalysis looks like concentrated sample. CT of the brain: No acute process by radiologist. EKG showed normal sinus rhythm at [address]-T changes, QTC is 450. CT of the abdomen and pelvis with contrast showing hiatal hernia, In the emergency room she doesn't Benadryl, meclizine, 1 L of normal saline and continue with 60 mL/h, Zofran and Toradol. Neurology service is already consulted 01/04/2020 is awake and alert, her symptoms improved including dizziness, no vertigo, she denies headache, blurred vision, no neck pain. No nausea or vomiting. No ear pain or tinnitus She still complaining of from low back pain that was more severe earlier morning as she got one pill of hypo-profane and her pain subsided to 2/10 Patient reports lidocaine patches helping her and she is walking to the restroom [id number] Pending physical therapy evaluation 12/28/2019 Patient is awake and alert, all the symptoms came in with likely nausea vomiting, dizziness are resolved. She is only complaining of from significant low back pain which causes him some difficulty walking and getting up from sitting position, however she denies weakness or numbness [place]/bowel incontinence, she can walk on herself with some limited due to pain. Orthopedics has been consulted and is still pending. We will continue with her pain management Patient herself wants to stay in the hospital and see an orthopedic tomorrow Objective - Vital Signs Vital signs: Vital Signs Temp 98.5 F 01/05/20 12:46 Pulse 75 01/05/20 12:46 Resp 14 01/05/20 12:46 BP 133/70 01/05/20 12:46 Pulse Ox 94 L 01/05/20 12:46 Intake & Output 01/04/20 01/05/20 01/05/20 18:59 06:59 18:59 Intake Total 0 Balance 0 Intake: Oral 0 Other: Voiding Method Toilet Toilet Toilet # Voids 1 1 - Exam GENERAL: The patient is alert and oriented x3, not in any acute distress. Well developed, well nourished. HEENT: Pupils are round and equally reacting to light. EOMI. No scleral icterus. No conjunctival pallor. Normocephalic, atraumatic. No pharyngeal erythema. No thyromegaly. CARDIOVASCULAR: S1 and S2 present. No murmurs, rubs, or gallops. PULMONARY: Chest is clear to auscultation, no wheezing or crackles. ABDOMEN: Soft, nontender, nondistended, normoactive bowel sounds. No palpable organomegaly. MUSCULOSKELETAL: No joint swelling or deformity. EXTREMITIES: No cyanosis, clubbing, or pedal edema. NEUROLOGICAL: Gross neurological examination did not reveal any focal deficits. -Gait: Patient is able to walk with some assistance, she has some difficulty due to pain in her lower back. SKIN: No rashes. no petechiae - Labs CBC & Chem 7: 01/03/20 15:05 01/03/20 15:05 Assessment and Plan Assessment: Episodes of lightheadedness and dizziness associated with nausea and abdominal pain. Gastroesophageal esophageal reflux disease. Hiatal hernia Chronic back pain History of left breast cancer History of motion sickness Plan: This is a pleasant 59 years old female who presents with dizziness and abdominal pain. Which were resolved. However she still complained from low back pain. She thinks her lidocaine patch help her so we'll keep that, she is also on M otrin. Physical therapy evaluation is pending. Patient might benefit from orthopedic consult Labs and medication were reviewed.. Continue same treatment. Continue with symptomatic treatment. Resume home medication. Monitor lytes and vitals. DVT and GI prophylaxis. Further recommendations of the clinical course of the patient DVT prophylaxis: Subcutaneous heparin GI Prophylaxis: Pepcid PT/OT: Pending Prognosis is guarded
[2020-01-05] MEDS ORDERED: LIDOCAINE 5% PATCH TOPICAL SCH (16:00)
[2020-01-05] MEDS: FAMOTIDINE 20 MG TAB PO SCH (21:26)
[2020-01-05] MEDS: SODIUM CHLORIDE 0.9% 1,000 ML IV SCH (22:20)
[2020-01-05 23:32] VITALS: RESP 18
[2020-01-06] MEDS: KETOROLAC 30 MG/ML 1 ML VIAL IVP PRN (04:03)
[2020-01-06] MEDS: FAMOTIDINE 20 MG TAB PO SCH (08:32)
[2020-01-06] MEDS: HEPARIN SODIUM,PORCINE 5,000 UNIT/ML 1 ML VIAL SQ SCH (08:32)
[2020-01-06 08:37] VITALS: BP 121/72; PULSE 68; TEMP 98.1
--- NOTE | 2020-01-06 23:18 | P.CNOR ---
History of Present Illness - [facility] Consult date: 01/06/20 Requesting physician: Surendra Canada Consult reason: low back pain (Acute on chronic low back pain) History of present illness: Patient is very pleasant 59-year-old female who is seen and examined at bedside for further evaluation for ongoing low back pain. She is known have chronic low back pain. She states her back pain has been worse over the past week after doing some gardening. Her pain is most significant towards her right sacroiliac joint. Since her admission to the hospital with medication and more time, she feels her symptoms have improved. She is not currently taking any medications specifically for her low back. She feels her low back pain is tolerable. She does have some numbness over the left thigh that is chronic. She denies any lower extremity weakness bilaterally. She denies any right lower extremity radiculopathy. In regards to her lumbar spine she feels she is ready for discharge and would like to be discharged home today. She denies any change in bowel or bladder. She was originally admitted to the hospital after experiencing some lightheadedness, dizziness and states she did not feel right. She states she would order pizza could not remember what she was doing. Prior to that she had seen her primary care provider for evaluation of vertigo. Patient does have a past medical history which includes left breast cancer. She follows with Dr. Hathaway for further evaluation. Past Medical History Past Medical History: Cancer, GERD/Reflux Additional Past Medical History / Comment(s): Light headed occasionally, hiatal hernia, R carpal tunnel syndrome, back pain., left breast cancer, anemia. History of Any Multi-Drug Resistant Organisms: None Reported Past Surgical History: Section, Hysterectomy Additional Past Surgical History / Comment(s): x 3, cervical lymph node excision, EGD, L carpal tunnel release. Past Anesthesia/Blood Transfusion Reactions: Motion Sickness, Postoperative Nausea & Vomiting (PONV) Additional Past Anesthesia/Blood Transfusion Reaction / Comm: blood transfusion- no reaction Past Psychological History: No Psychological Hx Reported Smoking Status: Never smoker Past Alcohol Use History: None Reported Past Drug Use History: None Reported - Past Family History Father Family Medical History: No Reported History Additional Family Medical History / Comment(s): . Mother Additional Family Medical History / Comment(s): Anemia Medications and Allergies Home Medications Medication Instructions Recorded Confirmed Type Famotidine [Pepcid] 20 mg PO DAILY #40 tablet 01/05/20 Rx Ibuprofen [Motrin] 400 mg PO Q6HR PRN 2 Days #8 tab 01/05/20 Rx Lidocaine 5% Patch [Lidoderm 5% 1 patch TOPICAL DAILY@1600 #10 01/05/20 Rx Patch] patch Allergies Allergy/AdvReac Type Severity Reaction Status Date / Time aspirin Allergy Anaphylaxis Verified 01/02/20 17:38 codeine Allergy Anaphylaxis Verified 01/02/20 17:38 shellfish derived [Shellfish] Allergy Anaphylaxis Verified 01/02/20 17:38 Physical Examination Physical exam: Patient is awake, alert, and oriented 3 Vital signs stable Good chest excursion with deep inspiration and expiration Abdomen soft nontender Examination of lumbar spine reveals skin is intact with no abrasions, lacerations, or bruises; no erythema, purulence or signs of infection Some pain with palpation over the right sacroiliac joint Dorsiflexion, plantarflexion, and extensor hallucis longus positive sustained bilaterally Lower extremity strength 5/5 bilaterally No lower extremity hyperreflexia bilaterally Straight leg test negative bilateral lower extremities Negative Lasegue's test bilaterally No signs or symptoms of DVT; no calf pain No pain with internal and external rotation of the hips bilaterally Neurovascularly intact Results Pertinent studies: CT the abdomen and pelvis reviewed for orthopedic spine purposes: Overall alignment of lumbar spine is adequately maintained; intervertebral disc spacing appears to be fairly well maintained; no evidence of vertebral body compression fracture; degenerative disc disease lower thoracic spine - Labs Labs: H & H 01/02/20 01/03/20 Range/Units 17:16 15:05 Hgb 13.2 11.5 (11.4-16.0) gm/dL Hct 40.4 37.0 (34.0-46.0) % Result Diagrams: 01/03/20 15:05 01/03/20 15:05 Assessment and Plan Assessment: Assessment: Acute on chronic low back pain Left lower extremity radiculopathy Right SI joint pain Episodes of lightheadedness and dizziness History of left breast cancer (1) Acute exacerbation of chronic low back pain Status: Acute Code(s): M54.5 - LOW BACK PAIN; G89.29 - OTHER CHRONIC PAIN SNOMED Code(s): 566152582 (2) Sacroiliac joint pain Status: Acute Code(s): M53.3 - SACROCOCCYGEAL DISORDERS, NOT ELSEWHERE CLASSIFIED SNOMED Code(s): 932056975 (3) Radiculopathy of leg Status: Acute Code(s): M54.10 - RADICULOPATHY, SITE UNSPECIFIED SNOMED Code(s): 26530033 (4) HX: breast cancer Status: Acute Code(s): Z85.3 - PERSONAL HISTORY OF MALIGNANT NEOPLASM OF BREAST SNOMED Code(s): 662211884 (5) Dizziness Status: Acute Code(s): R42 - DIZZINESS AND GIDDINESS SNOMED Code(s): 934610805 Plan: Plan: 1. Patient has been discussed in detail with Dr. Kaz Ty. After reviewing o f imaging, physical examination the patient, and further discussion with the patient, we will plan to continue conservative treatment at this time. Patient feels her acute on chronic low back pain over the past week after gardening has improved with time in medicine. She feels her symptoms are well controlled. She does have some chronic numbness over the left thigh. At this time she feels stable and ready for discharge home. We discussed we'll plan to have her follow-up in the outpatient setting approximately 2 weeks for further evaluation. If her symptoms do not continue to improve or are worsening at that time, we may plan to obtain further imaging at that time. Patient is now clear for discharge from an orthopedic spine standpoint. She'll plan to follow up with Rosales Maier PA-C or Dr. Kaz Ty at [facility] in 2 weeks for further evaluation. Patient feels is appropriate plan of care. 2. Patient will continue be seen and examined by medicine for other medical diagnoses Time with Patient: Greater than 30 (Including obtaining history, physical examination, reviewing of imaging, and dictation.)
--- NOTE | 2020-01-09 06:46 | CDI ---
Documentation Clarification Form Date: 01/09/2020 06:31:32 AM From: Leta Ansari Phone: If you have a question about this query, please contact Laurie Pickett, Rehab Aide at [phone] between 8am and 5pm. Admit Date: 01/04/2020 09:20:00 AM Patient Name: Fernanda Rincon Visit Number: [id number] Discharge Date: 01/06/2020 12:55:00 PM ATTENTION: The Clinical Documentation Specialists (CDI) and [facility] Coding Staff appreciate your assistance in clarifying documentation. Please respond to the clarification below the line at the bottom and electronically sign. The CDI & [facility] Coding staff will review the response and follow-up if needed. Please note: Queries are made part of the Legal Health Record. If you have any questions, please contact the author of this message via ITS. Dr. Agosto E Sheet The patients principal diagnosis has not been clearly identified and requires clarification. He/She presented with the following nausea, vomiting, dizzy chronic low back pain, radiculopathy, abdominal pain. History/Risk factors: GERD Hiatal Hernia chronic low back pain, personal history breast cancer Clinical Indicators: Radiology findings: Brain CT negative. Abdominal Pelvic CT - Large hiatal hernia mild atelectasis lung bases Vital Signs: 97.8 F 79 18 139/72 96RA Treatment: IV fluids Zofran, Toradol, Benadryl and meclizine. Lidocaine patch for back.. Consults: orthopedic In your professional opinion, can you please clarify which diagnosis, after study, accounted for the patients presenting symptoms and was the reason chiefly responsible for the admission? acute on chronic back pain with radiculopathy MTDD
--- NOTE | 2020-01-10 23:04 | P.DS ---
Providers Date of admission: 01/04/20 09:20 Attending physician: Flora Stevens Consults: 01/04/20 12:57 Consult Physician Urgent Consulting Provider: Jaquan Ty Consult Reason/Comments: low back pain Do you want consulting provider notified?: Yes Primary care physician: Aimee Burnett [facility] Hospital Course: Diagnoses: Acute on chronic back pain with radiculopathy and limping Episodes of lightheadedness and dizziness associated with nausea and abdominal pain. Completely resolved over the last 2 days prior to discharge Gastroesophageal esophageal reflux disease. Not an active problem Hiatal hernia Chronic back pain History of left breast cancer History of motion sickness Hospital course: This is a pleasant 59 years old female with past medical history of Gastroesophageal reflux disease, hiatal hernia, chronic back pain, left breast cancer that she follows up with Dr. Hathaway for it, motion sickness. Patient presents because of several nonspecific symptoms including dizziness, nausea, difficulty walking for short term, lightheadedness, not feeling well, she was treated symptomatically with Benadryl, meclizine, 1 L of normal saline and continue with 60 mL/h, Zofran and Toradol. And she showed interval improvement in all her symptoms resolved and they were absent more than 48 hours prior to discharge while the patient keep monitored, however she kept to have low back pain with difficulty walking due to pain, she was treated symptomatically with NSAIDs and she showed interval improvement and easing down of pain and on the day of discharge her pain rating came down to 2-3/10 in severity and her gait was better. Patient has been evaluated by orthopedic surgeon for her acute on chronic back pain with radiculopathy , pt was cleared for discharge by orthopedic team with recommendation for outpatient follow up Physical therapy evaluated pt and recommended home with no therapy Eventually patient came back to her baseline or close to it. Patient was cleared for discharge by information systems security specialist Problems and management plan were discussed with the patient and he verbalized understanding and acceptance Patient was found stable and can be discharged home however he needs follow-up as an outpatient. Patient was instructed to follow up with PCP within one week and patient agrees, pt is also instructed to f/u with orthopedic in 2 weeks and she agrees. pt wants to make her own appointments Gen: patient is a AAOx3, no distress, obese CVS: S1-S2, RRR, no murmur Lungs: B/L CTA, no wheezing Abdomen: soft, no distention, no tenderness, positive bowel sounds Extremity: no leg edema or induration Neuro: Fully awake and oriented. Cranial nerves are grossly intact, strength is 5/5 in all extremities. Sensation is intact. Gait is at baseline but slow with some limping on the left due to low back pain Time spent more than 35 minutes view different symptoms, she was feeling dizzy, nauseated and has difficulty walking for short time. Associated with lightheadedness for 2 weeks on and off. Yesterday she went to see her family doctor for known feeling well and to check her tear although she does not complain from ear pain and her are exam was u nremarkable, we checked her for orthostasis and vertical and she's been told she does not have it and prescribed him some pain medication and her way out and getting her prescription and he says she didn't feel well she felt dizzy and could not walk back to her car so she called her son who brought her to the emergency room Yesterday also she felt some abdominal pain is resolved with pain medication. Currently she denies dizziness, no blurred vision, her abdominal pain is resolved. However she still feels not herself She denies recent history of infection or common called. No sick contacts. No history of smoking, call or illicit drugs. She has history of breast cancer with no metastases, patient told me she did not get chemotherapy before however november she got radiotherapy. Vitals are stable. She has mild leukocytosis of 11.2 K, sodium 136, rest of CBC, BMP and liver enzymes were unremarkable. Urinalysis looks like concentrated sample. CT of the brain: No acute process by radiologist. EKG showed normal sinus rhythm at [address]-T changes, QTC is 450. CT of the abdomen and pelvis with contrast showing hiatal hernia, In the emergency room she doesn't Neurology service is already consulted 01/04/2020 is awake and alert, her symptoms improved including dizziness, no vertigo, she denies headache, blurred vision, no neck pain. No nausea or vomiting. No ear pain or tinnitus She still complaining of from low back pain that was more severe earlier morning as she got one pill of hypo-profane and her pain subsided to 08/19 Patient reports lidocaine patches helping her and she is walking to the restroom [id number] Pending physical therapy evaluation 12/28/2019 Patient is awake and alert, all the symptoms came in with likely nausea vomiting, dizziness are resolved. She is only complaining of from significant low back pain which causes him some difficulty walking and getting up from sitting position, however she denies weakness or numbness [place]/bowel incontinence, she can walk on herself with some limited due to pain. Orthopedics has been consulted and is still pending. We will continue with her pain management Patient herself wants to stay in the hospital and see an orthopedic tomorrow Patient Condition at Discharge: Good Plan - Discharge Summary Discharge Rx Participant: No New Discharge Prescriptions: New Lidocaine 5% Patch [Lidoderm 5% Patch] 1 patch TOPICAL DAILY@1600 #10 patch Ibuprofen [Motrin] 400 mg PO Q6HR PRN 2 Days #8 tab PRN Reason: Mild Pain Or Fever > 100.5 Famotidine [Pepcid] 20 mg PO DAILY #40 tablet Discharge Medication List Famotidine [Pepcid] 20 mg PO DAILY #40 tablet 01/05/20 [Rx] Ibuprofen [Motrin] 400 mg PO Q6HR PRN 2 Days #8 tab 01/05/20 [Rx] Lidocaine 5% Patch [Lidoderm 5% Patch] 1 patch TOPICAL DAILY@1600 #10 patch 01/05/20 [Rx] Follow up Appointment(s)/Referral(s): Aimee Lazar III, MD [Primary Care Provider] - 1-2 days Jaquan Ty DO [Doctor of Osteopathic Medicine] - 2 Weeks (orthopedic spine surgeon) Activity/Diet/Wound Care/Special Instructions: heart healthy diet fluids are always encouraged. continue with patches as needed. continue pepcid as ordered starting tomorrow. follow up with physicians as directed. activity is limited till you see your doctor. Call with any questions comments concerns worsening returning symptoms, fever shortness of breath cough, pain that is not helped by patches or prescribed medications, not tolerating diet or fluids. Discharge Disposition: HOME SELF-CARE
== END 2020-01-06 12:55 | disposition home or self-care (01) | DRG 74 ==
LOC: EC 16:33 → 1SOBS 19:55 → OBSVTOIN 01-04 09:20 → 6PED 01-05 23:04
PROVIDERS: ADMIT Hospitalist; ATTEND Hospitalist
DX: M54.10 Radiculopathy, site unspecified (principal); G89.29 Other chronic pain; M54.5 Low back pain; K21.9 Gastro-esophageal reflux disease without esophagitis; K44.9 Diaphragmatic hernia without obstruction or gangrene; M53.3 Sacrococcygeal disorders, not elsewhere classified; Z85.3 Personal history of malignant neoplasm of breast; Z90.710 Acquired absence of both cervix and uterus; Z92.3 Personal history of irradiation; Z88.6 Allergy status to analgesic agent; Z88.5 Allergy status to narcotic agent; Z91.013 Allergy to seafood; Z11.59 Encounter for screening for other viral diseases; R11.2 Nausea with vomiting, unspecified; R42 Dizziness and giddiness
CPT/HCPCS: 36415; 70450; 74177; 80048; 80053; 81001; 83605; 83690; 83735; 85025; 93005; 96361; 96374; 96375; 96376; 99285

== ENCOUNTER → 2020-01-13 | Outpatient (CLI) | payer BC ==
--- NOTE | 2020-01-14 09:56 | USB ---
Reason for exam: follow-up at short interval from prior study. History: Patient is postmenopausal and has history of breast cancer at age 59. Malignant US breast localization LT, June 03, 2019. Lumpectomy of the left breast, June 03, 2019. Malignant US biopsy breast VAD LT of the left breast, May 07, 2019. Physical Findings: Nurse did not find any significant physical abnormalities on exam. US Breast BILAT Right complete breast ultrasound includes all four quadrants, the retroareolar region and axilla. Finding demonstrates no cystic or solid lesion seen. Left complete breast ultrasound includes all four quadrants, the retroareolar region and axilla. Finding demonstrates a 2.8 x 2.8 x 3.6cm irregular, mixed lesion at 10 o'clock scar. Mass like area likely reflects scar tissue rather than recurrence. These results were verbally communicated with the patient and result sheet given to the patient on 01/13/20. ASSESSMENT: Probably benign, BI-RAD 3 RECOMMENDATION: Surgical consultation of the left breast. Back on schedule for April 2020. Manage patient on a clinical basis. Called Dr. Henson's office with mammographic findings. PRELIMINARY REPORT CALLED AND FAXED TO DR. HENSON ON 01/14/20. Follow-up diagnostic mammogram of both breasts in 3 months. Ultrasound of the left breast in 3 months.
== END | disposition home or self-care (01) ==
LOC: RADUSWWP 14:08
PROVIDERS: ATTEND Internal Medicine Hematology & Oncology
DX: Z85.3 Personal history of malignant neoplasm of breast (principal)

== ENCOUNTER → 2020-04-14 | Outpatient (CLI) | payer BC ==
--- NOTE | 2020-04-15 19:01 | ECHOF ---
Referral Reason:R01.1 cardiac murmur MEASUREMENTS -------- HEIGHT: 162.6 cm WEIGHT: 90.7 kg BP: RVIDd: 2.6 cm (< 3.3) IVSd: 1.5 cm (0.6 - 1.1) LVIDd: 3.1 cm (3.9 - 5.3) LVPWd: 1.4 cm (0.6 - 1.1) IVSs: 1.6 cm LVIDs: 1.8 cm LVPWs: 1.9 cm LAESV Index (A-L): 36.56 ml/m Ao Diam: 2.5 cm (2.0 - 3.7) AV Cusp: 1.5 cm (1.5 - 2.6) MV EXCURSION: 13.243 mm (> 18.000) MV EF SLOPE: 55 mm/s (70 - 150) EPSS: 0.1 cm MV E Ector: 0.94 m/s MV DecT: 164 ms MV A Ector: 1.00 m/s MV E/A Ratio: 0.94 AR PHT: 470 ms RAP: 5.00 mmHg RVSP: 34.79 mmHg FINDINGS -------- This was a technically difficult study with suboptimal views. The left ventricular size is normal. There is moderate concentric left ventricular hypertrophy. O verall left ventricular systolic function is normal with, an EF between 55 - 60 %. The diastolic fi lling pattern is normal for the age of the patient 17.91. The right ventricle is normal in size. LA is moderately dilated 34-39 ml/m2 The right atrium is mildly enlarged. 5.0mg of Lumason was utilized for enhancement of images Interatrial and interventricular septum intact. The aortic valve is trileaflet and appears structurally normal. There is mild aortic regurgitation. There is no evidence of aortic stenosis. The mitral valve was not well visualized. There is trace to mild mitral regurgitation. Mild tricuspid regurgitation present. There is mild pulmonary hypertension. The right ventricular systolic pressure, as measured by Doppler, is 34.79mmHg. Trace/mild (physiologic) pulmonic regurgitation. The aortic root size is normal. The inferior vena cava is mildly dilated. There is no pericardial effusion. CONCLUSIONS -------- 1. The left ventricular size is normal. 2. There is moderate concentric left ventricular hypertrophy. 3. Overall left ventricular systolic function is normal with, an EF between 55 - 60 %. 4. The diastolic filling pattern is normal for the age of the patient 17.91 5. LA is moderately dilated 34-39 ml/m2 6. The right atrium is mildly enlarged. 7. There is mild aortic regurgitation. 8. There is trace to mild mitral regurgitation. 9. Mild tricuspid regurgitation present. 10. There is mild pulmonary hypertension. 11. The right ventricular systolic pressure, as measured by Doppler, is 34.79mmHg. 12. Trace/mild (physiologic) pulmonic regurgitation. 13. The inferior vena cava is mildly dilated. DIRECTOR OF MARKETING AND PROMOTIONS: Yumiko Jerez RDCS
== END | disposition home or self-care (01) ==
LOC: RADECHMAIN 13:47
PROVIDERS: ATTEND Nurse Practitioner Family
DX: I08.1 Rheumatic disorders of both mitral and tricuspid valves (principal); I27.20 Pulmonary hypertension, unspecified; I37.1 Nonrheumatic pulmonary valve insufficiency
CPT/HCPCS: 93306; Q9950

== ENCOUNTER → 2020-05-11 | Outpatient (CLI) | payer BC ==
--- NOTE | 2020-05-11 14:29 | MM ---
Reason for exam: additional evaluation requested from prior study. Last mammogram was performed 11 months ago. History: Patient is postmenopausal and has history of breast cancer at age 59. Malignant US breast localization LT, June 03, 2019. Lumpectomy of the left breast, June 03, 2019. Malignant US biopsy breast VAD LT of the left breast, May 07, 2019. Physical Findings: Nurse did not find any significant physical abnormalities on exam. MG 3D Diag Mammo W/Cad MARY JANE Bilateral CC and MLO view(s) were taken. Prior study comparison: June 03, 2019, left breast MG diagnostic mammo LT wo CAD. May 07, 2019, left breast MG diagnostic mammo LT wo CAD. The breast tissue is heterogeneously dense. This may lower the sensitivity of mammography. Finding: Architectural distortion in the lower inner quadrant, middle position of the left breast. There is no discrete abnormality. New skin thickening, post treatment change. These results were verbally communicated with the patient and result sheet given to the patient on 05/11/20. ASSESSMENT: Benign, BI-RAD 2 RECOMMENDATION: Follow-up diagnostic mammogram of both breasts in 1 year.
== END | disposition home or self-care (01) ==
LOC: RADMAMWWP 13:14
PROVIDERS: ATTEND Internal Medicine Hematology & Oncology
DX: Z08 Encounter for follow-up examination after completed treatment for malignant neoplasm (principal); Z85.3 Personal history of malignant neoplasm of breast
CPT/HCPCS: 77062; 77066

== ENCOUNTER 2020-11-06 11:48 | Emergency (ER) | payer BC ==
[2020-11-06 12:06] VITALS: RESP 18
[2020-11-06] MEDS ORDERED: KETOROLAC 15 MG/ML 1 ML VIAL IM STA (12:23)
[2020-11-06] MEDS ORDERED: LIDOCAINE 5% PATCH TOPICAL STA (12:23)
[2020-11-06] MEDS ORDERED: KETOROLAC 15 MG/ML 1 ML VIAL IVP STA (12:23)
--- NOTE | 2020-11-06 12:26 | ED ---
General Adult HPI - General Chief complaint: Abdominal Pain Stated complaint: abd pain Time Seen by Provider: 11/06/20 12:08 Source: patient Mode of arrival: ambulatory Limitations: no limitations - History of Present Illness Initial comments: Dictation was produced using [employer] dictation software. please excuse any grammatical, word or spelling errors. This patient was cared for during a federal and state declared state of emergency secondary to Covid 19 Chief Complaint: 60-year-old female presents to the emergency department for chest pain History of Present Illness: 60-year-old female she presents today with sharp chest pain. She locates states her pain to the rib border of the left anterior chest. She states it's painful to the touch. She states that she got an iron transfusion when she received the poke and she jumped in her legs kicked out. Since then she's been having pain. She describes the pain as sharp without any radiation. States inserts to the touch. Swirsky whenever she moves or takes deep breath or cough. The fever, chills or night sweats. No nausea vomiting abdominal pain or diarrhea. Denies any pressure-like sensation over the chest. She does not have any cardiac history. She does not have any history of hypertension diabetes or hypercholesterolemia. She does not use tobacco. The ROS documented in this emergency department record has been reviewed and confirmed by me. Those systems with pertinent positive or negative responses have been documented in the HPI. All other systems are other negative and/or noncontributory. PHYSICAL EXAM: General Impression: Alert and oriented x3, not in acute distress HEENT: Normocephalic atraumatic, extra-ocular movements intact, pupils equal and reactive to light bilaterally, mucous membranes moist. Cardiovascular: Heart regular rate and rhythm Chest: Able to complete full sentences, no retractions, no tachypnea, severe tenderness to palpation over the left lower anterior ribs, pain is reproduced with palpation Abdomen: abdomen soft, non-tender, non-distended, no organomegaly Musculoskeletal: Pulses present and equal in all extremities, no peripheral edema Motor: no focal deficits noted Neurological: CN II-XII grossly intact, no focal motor or sensory deficits noted Skin: Intact with no visualized rashes Psych: Normal affect and mood ED course: 60-year-old female presents emergency department with clinical presentation consistent with costochondritis. Vital signs upon arrival are within acceptable limits. Laboratory evaluation obtained. CBC, metabolic panel is unremarkable. Chest x- ray shows no acute processes. Patient reevaluated at bedside at 1:35 PM after being in given Toradol and lidocaine patch. She reports slightly improved symptoms. Patient's clinical presentation consistent with costochondritis. Patient will be discharged. Patient told to rest and take some time off work. Patient advised to follow-up with primary care physician upon discharge. EKG interpretation: Ventricular rate 77, normal sinus rhythm,. 146, QRS 84, QTC 423. No MO prolongation, no QTC prolongation, no ST or T-wave changes noted. EKG compared to January 02 2020 showing no changes. Overall, this EKG is unremarkable - Related Data Home Medications Medication Instructions Recorded Confirmed Ferrous Sulfate [Iron] 325 mg PO DAILY 11/03/20 11/06/20 Cyanocobalamin (Vitamin B-12) 1,000 mcg PO DAILY 11/06/20 11/06/20 [Vitamin B-12] Cyclobenzaprine [Flexeril] 5 mg PO HS PRN 11/06/20 11/06/20 Ergocalciferol [Vitamin D2 (1250 1,250 mcg PO FR 11/06/20 11/06/20 Mcg = 49562 Iu)] Omeprazole 20 mg PO DAILY 11/06/20 11/06/20 hydroCHLOROthiazide [Hydrodiuril] 12.5 mg PO DAILY 11/06/20 11/06/20 Allergies Allergy/AdvReac Type Severity Reaction Status Date / Time aspirin Allergy Anaphylaxis Verified 11/06/20 12:56 codeine Allergy Anaphylaxis Verified 11/06/20 12:56 shellfish derived [Shellfish] Allergy Anaphylaxis Verified 11/06/20 12:56 Review of Systems ROS Statement: Those systems with pertinent positive or pertinent negative responses have been documented in the HPI. ROS Other: All systems not noted in ROS Statement are negative. Past Medical History Past Medical History: Cancer, GERD/Reflux Additional Past Medical History / Comment(s): Light headed occasionally, hiatal hernia, R carpal tunnel syndrome, back pain., left breast cancer, anemia. History of Any Multi-Drug Resistant Organisms: None Reported Past Surgical History: Section, Hysterectomy Additional Past Surgical History / Comment(s): x 3, cervical lymph node excision, EGD, L carpal tunnel release. Past Anesthesia/Blood Transfusion Reactions: Motion Sickness, Postoperative Nausea & Vomiting (PONV) Additional Past Anesthesia/Blood Transfusion Reaction / Comment(s): blood transfusion- no reaction Past Psychological History: No Psychological Hx Reported Smoking Status: Never smoker Past Alcohol Use History: None Reported Past Drug Use History: None Reported - Past Family History Father Family Medical History: No Reported History Additional Family Medical History / Comment(s): . Mother Additional Family Medical History / Comment(s): Anemia General Exam Limitations: no limitations Course Vital Signs 11/06/20 12:04 Temperature 98.7 F Pulse Rate 85 Respiratory 18 Rate Blood Pressure 153/81 O2 Sat by Pulse 98 Oximetry Medical Decision Making - Lab Data Result diagrams: 11/06/20 12:34 11/06/20 12:34 Lab Results 11/06/20 11/06/20 Range/Units 12:34 12:34 WBC 8.6 (3.8-10.6) k/uL RBC 4.53 (3.80-5.40) m/uL Hgb 11.7 (11.4-16.0) gm/dL Hct 36.7 (34.0-46.0) % MCV 81.0 (80.0-100.0) fL MCH 25.8 (25.0-35.0) pg MCHC 31.9 (31.0-37.0) g/dL RDW 15.5 (11.5-15.5) % Plt Count 255 (150-450) k/uL MPV 7.6 Neutrophils % 72 % Lymphocytes % 15 % Monocytes % 6 % Eosinophils % 4 % Basophils % 1 % Neutrophils # 6.2 (1.3-7.7) k/uL Lymphocytes # 1.3 (1.0-4.8) k/uL Monocytes # 0.6 (0-1.0) k/uL Eosinophils # 0.4 (0-0.7) k/uL Basophils # 0.1 (0-0.2) k/uL Hypochromasia Moderate Sodium 138 (137-145) mmol/L Potassium 4.0 (3.5-5.1) mmol/L Chloride 103 (98-107) mmol/L Carbon Dioxide 28 (22-30) mmol/L Anion Gap 7 mmol/L BUN 12 (7-17) mg/dL Creatinine 0.60 (0.52-1.04) mg/dL Est GFR (CKD-EPI)AfAm >90 (>60 ml/min/1.73 sqM) Est GFR (CKD-EPI)NonAf >90 (>60 ml/min/1.73 sqM) Glucose 91 (74-99) mg/dL Calcium 9.2 (8.4-10.2) mg/dL Total Bilirubin 1.0 (0.2-1.3) mg/dL AST 25 (14-36) U/L ALT 20 (4-34) U/L Alkaline Phosphatase 149 H (38-126) U/L Total Protein 7.5 (6.3-8.2) g/dL Albumin 4.3 (3.5-5.0) g/dL Lipase 103 (23-300) U/L Disposition Clinical Impression: Costochondritis, acute Disposition: HOME SELF-CARE Condition: Fair Instructions (If sedation given, give patient instructions): Costochondritis (ED) Is patient prescribed a controlled substance at d/c from ED?: No Referrals: Aimee Lazar III, MD [Primary Care Provider] - 1-2 days Time of Disposition: 13:36
[2020-11-06 12:44] LABS: Basophils # (A) 0.1 k/uL (0-0.2); Basophils % (A) 1 %; Eosinophils # (A) 0.4 k/uL (0-0.7); Eosinophils % (A) 4 %; HCT 36.7 % (34.0-46.0); HGB 11.7 gm/dL (11.4-16.0); Hypochromasia Moderate; Lymphocytes # (A) 1.3 k/uL (1.0-4.8); Lymphocytes % (A) 15 %; MCH 25.8 pg (25.0-35.0); MCHC 31.9 g/dL (31.0-37.0); Mean Platelet Volume 7.6; Monocytes # (A) 0.6 k/uL (0-1.0); Monocytes % (A) 6 %; Neutrophils # (A) 6.2 k/uL (1.3-7.7); Neutrophils % (A) 72 %; Platelet Count 255 k/uL (150-450); RBC 4.53 m/uL (3.80-5.40); RDW 15.5 % (11.5-15.5); WBC 8.6 k/uL (3.8-10.6)
[2020-11-06 13:00] LABS: ALT 20 U/L (4-34); AST 25 U/L (14-36); African American GFR (CKD) >90 (>60 ml/min/1.73 sqM); Albumin 4.3 g/dL (3.5-5.0); Alkaline Phosphatase 149 U/L (38-126); Anion Gap 7 mmol/L; Blood Urea Nitrogen 12 mg/dL (7-17); Calcium 9.2 mg/dL (8.4-10.2); Carbon Dioxide 28 mmol/L (22-30); Chloride 103 mmol/L (98-107); Glucose 91 mg/dL (74-99); Lipase 103 U/L (23-300); Non-African American GFR(CKD) >90 (>60 ml/min/1.73 sqM); Sodium 138 mmol/L (137-145); Total Protein 7.5 g/dL (6.3-8.2)
--- NOTE | 2020-11-06 13:29 | XR ---
EXAMINATION TYPE: XR chest 2V DATE OF EXAM: 11/06/2020 COMPARISON: CT 01/02/2020 HISTORY: Left-sided rib pain TECHNIQUE: Frontal and lateral views of the chest are obtained. FINDINGS: There is a retrocardiac density with central lucency consistent with known hiatal hernia an d partial intrathoracic stomach. Patient is rotated. There is no focal air space opacity, pleural eff usion, or pneumothorax seen. The cardiac silhouette size is within normal limits. The osseous stru ctures are intact, there is thoracic spondylosis. Surgical clips are present in the left breast. IMPRESSION: No acute cardiopulmonary process. Consider alternate imaging for better evaluation for r ib pain.
[2020-11-06] MEDS ORDERED: traMADol 50 MG STARTER PACK 3 TAB BTL PO STA (13:36)
[2020-11-06 13:47] VITALS: BP 123/78; PULSE 79; TEMP 98.5
== END 2020-11-06 13:47 | disposition home or self-care (01) ==
LOC: EC 11:48
DX: M94.0 Chondrocostal junction syndrome [Tietze] (principal); K21.9 Gastro-esophageal reflux disease without esophagitis
CPT/HCPCS: 36415; 93005; 80053; 83690; 85025; 71046; 99285; 96372; J1885

== ENCOUNTER 2020-12-09 17:13 | Emergency (ER) | payer BC ==
--- NOTE | 2020-12-09 19:35 | ED ---
Abdominal Pain HPI - General Chief Complaint: Abdominal Pain Stated Complaint: abd & shoulder pain Time Seen by Provider: 12/09/20 19:05 Source: patient Mode of arrival: ambulatory Limitations: no limitations - History of Present Illness Initial Comments: Patient is a 60-year-old female presenting to the emergency Department with complaints of left-sided abdominal pain that has been ongoing for the past 3-4 weeks. She describes it as intermittent, very sharp at times. She states the pain increases when she tries to lay on her left side, when she laughs or turns. She states over the past week from trying to use her left arm to guard her abdomen, she started developing muscle tightness of her left upper trap. She denies any nausea or vomiting, no fevers or chills. She denies any chest pain or shortness of breath. She states she did go to her doctor for this a few weeks ago, they thought it could've been related to a strain of the muscles around her ribs. She denies any falls or trauma. She states she does have a follow-up with her PCP tomorrow but states that the pain has been worsening so she wanted to come in for evaluation. She does admit to history of C-sections, hysterectomy, no other abdominal surgeries. She has no history of diverticulitis or kidney stones. She denies any hematuria or dysuria. She has been having normal bowel movements. She states she's been taking Tylenol PM for her pain so she can sleep at night. She states her pain is minimal at this time. She has no further complaints at this time. - Related Data Home Medications Medication Instructions Recorded Confirmed Ferrous Sulfate [Iron] 325 mg PO DAILY 11/03/20 11/20/20 Cyanocobalamin (Vitamin B-12) 1,000 mcg PO DAILY 11/06/20 11/20/20 [Vitamin B-12] Cyclobenzaprine [Flexeril] 5 mg PO HS PRN 11/06/20 11/20/20 Ergocalciferol [Vitamin D2 (1250 1,250 mcg PO FR 11/06/20 11/20/20 Mcg = 58261 Iu)] Omeprazole 20 mg PO DAILY PRN 11/06/20 11/20/20 hydroCHLOROthiazide [Hydrodiuril] 12.5 mg PO DAILY 11/06/20 11/20/20 Previous Rx's Medication Instructions Recorded Cephalexin [Keflex] 500 mg PO BID 5 Days #10 cap 12/09/20 Allergies Allergy/AdvReac Type Severity Reaction Status Date / Time aspirin Allergy Anaphylaxis Verified 12/09/20 17:53 codeine Allergy Anaphylaxis Verified 12/09/20 17:53 shellfish derived [Shellfish] Allergy Anaphylaxis Verified 12/09/20 17:53 Review of Systems ROS Statement: Those systems with pertinent positive or pertinent negative responses have been documented in the HPI. ROS Other: All systems not noted in ROS Statement are negative. Past Medical History Past Medical History: Cancer, GERD/Reflux Additional Past Medical History / Comment(s): Light headed occasionally, hiatal hernia, R carpal tunnel syndrome, back pain., left breast cancer, anemia- receives iron infusions, abdominal pain. History of Any Multi-Drug Resistant Organisms: None Reported Past Surgical History: Section, Hysterectomy Additional Past Surgical History / Comment(s): x 3, cervical lymph node excision, EGD, L carpal tunnel release, lt breast lumpectomy with lymph node biopsy. Past Anesthesia/Blood Transfusion Reactions: Motion Sickness, Postoperative Nausea & Vomiting (PONV) Additional Past Anesthesia/Blood Transfusion Reaction / Comment(s): blood transfusion- no reaction Past Psychological History: No Psychological Hx Reported Smoking Status: Never smoker Past Alcohol Use History: None Reported Past Drug Use History: None Reported - Past Family History Father Family Medical History: No Reported History Additional Family Medical History / Comment(s): . Mother Additional Family Medical History / Comment(s): Anemia General Exam - General Exam Comments Initial Comments: GENERAL: Patient is well-developed and well-nourished. Patient is nontoxic and in no acute distress. HEAD: Atraumatic, normocephalic. EYES: Pupils equal round and reactive to light, extraocular movements intact, sclera anicteric, conjunctiva are normal. Eyelids were unremarkable. ENT: TMs normal, nares patent, oropharynx clear without exudates. Moist mucous membranes. NECK: Normal range of motion, supple without lymphadenopathy or JVD. LUNGS: Unlabored respirations. Breath sounds clear to auscultation bilaterally and equal. No wheezes rales or rhonchi. HEART: Regular rate and rhythm without murmurs, rubs or gallops. ABDOMEN: Soft, tender to palpation of left-sided abdomen, after lower quadrant, near the umbilical as well. normoactive bowel sounds. No guarding, no rebound. No masses appreciated. : Deferred MUSCULOSKELETAL: Normal extremities with adequate strength and normal range of motion, no pitting or edema. No clubbing or cyanosis. She has some mild muscle tightness to the left upper trapezius, this is painful to palpation. She has normal range of motion of her left shoulder. NEUROLOGICAL: Patient is alert and oriented x 3. Motor and sensory are also intact. Cranial nerves II through XII grossly intact. Symmetrical smile. Normal speech, normal gait. PSYCH: Normal mood, normal affect. SKIN: Warm, Dry, normal turgor, no rashes or lesions noted. Limitations: no limitations Course Vital Signs 12/09/20 17:48 Temperature 98.7 F Pulse Rate 87 Respiratory 16 Rate Blood Pressure 123/70 O2 Sat by Pulse 96 Oximetry Medical Decision Making - Medical Decision Making Patient is a 60-year-old female here with complaints of left-sided abdominal pain intermittent for the last 3-4 weeks. Her vitals are stable, afebrile. Her pain is minimal today however on palpation seems to have very severe left-sided abdominal pain. No rashes or bruising in the skin. Lab work is unremarkable, normal white count. Urine does show positive nitrates, bacteria. Urine culture is pending. CT of the abdomen was obtained, shows an extraperitoneal hemorrhage along the anterior abdomen wall on the left side consistent with a muscular hematoma. 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 Patient will be treated for UTI and does have an appointment with her PCP tomorrow. She is stable for discharge, she is in agreement this plan of care. Patient will continue to use guarding of the left side of the abdomen, pillow when coughing. Return parameters were discussed and the patient she verbalized understanding. Case discussed with Dr. Matthew. - Lab Data Result diagrams: 12/09/20 19:16 12/09/20 19:16 Lab Results 12/09/20 12/09/20 12/09/20 Range/Units 19:16 19:16 19:16 WBC 7.4 (3.8-10.6) k/uL RBC 4.58 (3.80-5.40) m/uL Hgb 12.3 (11.4-16.0) gm/dL Hct 40.0 (34.0-46.0) % MCV 87.4 D (80.0-100.0) fL MCH 26.9 (25.0-35.0) pg MCHC 30.8 L (31.0-37.0) g/dL RDW 19.1 H (11.5-15.5) % Plt Count 224 (150-450) k/uL MPV 7.8 Neutrophils % 76 % Lymphocytes % 15 % Monocytes % 5 % Eosinophils % 2 % Basophils % 1 % Neutrophils # 5.6 (1.3-7.7) k/uL Lymphocytes # 1.1 (1.0-4.8) k/uL Monocytes # 0.4 (0-1.0) k/uL Eosinophils # 0.2 (0-0.7) k/uL Basophils # 0.0 (0-0.2) k/uL Hypochromasia Slight Anisocytosis Slight Sodium 139 (137-145) mmol/L Potassium 4.2 (3.5-5.1) mmol/L Chloride 102 (98-107) mmol/L Carbon Dioxide 29 (22-30) mmol/L Anion Gap 8 mmol/L BUN 13 (7-17) mg/dL Creatinine 0.61 (0.52-1.04) mg/dL Est GFR (CKD-EPI)AfAm >90 (>60 ml/min/1.73 sqM) Est GFR (CKD-EPI)NonAf >90 (>60 ml/min/1.73 sqM) Glucose 104 H (74-99) mg/dL Calcium 9.4 (8.4-10.2) mg/dL Total Bilirubin 0.7 (0.2-1.3) mg/dL AST 19 (14-36) U/L ALT 17 (4-34) U/L Alkaline Phosphatase 119 (38-126) U/L Total Protein 6.9 (6.3-8.2) g/dL Albumin 4.0 (3.5-5.0) g/dL Lipase 63 (23-300) U/L Urine Color Yellow Urine Appearance Clear (Clear) Urine pH 5.5 (5.0-8.0) Ur Specific Dora 1.027 (1.001-1.035) Urine Protein Trace H (Negative) Urine Glucose (UA) Negative (Negative) Urine Ketones Negative (Negative) Urine Blood Moderate H (Negative) Urine Nitrite Positive H (Negative) Urine Bilirubin Negative (Negative) Urine Urobilinogen 2.0 (<2.0) mg/dL Ur Leukocyte Esterase Trace H (Negative) Urine RBC 1 (0-5) /hpf Urine WBC 2 (0-5) /hpf Ur Squamous Epith Cells 2 (0-4) /hpf Urine Bacteria Few H (None) /hpf Urine Mucus Few H (None) /hpf Disposition Clinical Impression: Abdominal wall hematoma, UTI (urinary tract infection) Disposition: HOME SELF-CARE Condition: Stable Instructions (If sedation given, give patient instructions): Urinary Tract Infection in Women (ED) Additional Instructions: Please return to the Emergency Department if symptoms worsen or any other concerns. Take anabolic as prescribed for the UTI. Continue to use precautions, protect the left side of the abdomen when coughing. No leaning on the belly at work. Prescriptions: Cephalexin [Keflex] 500 mg PO BID 5 Days #10 cap Is patient prescribed a controlled substance at d/c from ED?: No Referrals: Aimee Lazar III, MD [Primary Care Provider] - 1-2 days Time of Disposition: 22:03
[2020-12-09 20:13] LABS: Anisocytosis Slight; Basophils % (A) 1 %; Eosinophils # (A) 0.2 k/uL (0-0.7); Eosinophils % (A) 2 %; HGB 12.3 gm/dL (11.4-16.0); Hypochromasia Slight; Lymphocytes # (A) 1.1 k/uL (1.0-4.8); Lymphocytes % (A) 15 %; MCH 26.9 pg (25.0-35.0); MCHC 30.8 g/dL (31.0-37.0); Mean Platelet Volume 7.8; Monocytes # (A) 0.4 k/uL (0-1.0); Monocytes % (A) 5 %; Neutrophils # (A) 5.6 k/uL (1.3-7.7); Neutrophils % (A) 76 %; Platelet Count 224 k/uL (150-450); RBC 4.58 m/uL (3.80-5.40); RDW 19.1 % (11.5-15.5); WBC 7.4 k/uL (3.8-10.6)
[2020-12-09 20:20] LABS: Appearance,Urine Clear (Clear); Bacteria,Urine Few /hpf; Bilirubin,Urine Negative (Negative); Blood,Urine Moderate (Negative); Color,Urine Yellow; Glucose,Urine (UA) Negative (Negative); Ketones,Urine Negative (Negative); Leukocyte Esterase,Urine Trace (Negative); Mucus,Urine Few /hpf; Nitrite,Urine Positive (Negative); PH, Urine 5.5 (5.0-8.0); Protein,Urine Trace (Negative); RBC,Urine 1 /hpf (0-5); Specific Gravity,Urine 1.027 (1.001-1.035); Squamous Epithelial Cell,Urine 2 /hpf (0-4); WBC,Urine 2 /hpf (0-5)
[2020-12-09 20:30] LABS: MCV 87.4 fL (80.0-100.0)
[2020-12-09 20:33] LABS: ALT 17 U/L (4-34); AST 19 U/L (14-36); African American GFR (CKD) >90 (>60 ml/min/1.73 sqM); Alkaline Phosphatase 119 U/L (38-126); Anion Gap 8 mmol/L; Blood Urea Nitrogen 13 mg/dL (7-17); Calcium 9.4 mg/dL (8.4-10.2); Carbon Dioxide 29 mmol/L (22-30); Chloride 102 mmol/L (98-107); Glucose 104 mg/dL (74-99); Lipase 63 U/L (23-300); Non-African American GFR(CKD) >90 (>60 ml/min/1.73 sqM); Potassium 4.2 mmol/L (3.5-5.1); Sodium 139 mmol/L (137-145); Total Bilirubin 0.7 mg/dL (0.2-1.3); Total Protein 6.9 g/dL (6.3-8.2)
--- NOTE | 2020-12-09 21:25 | CT ---
EXAMINATION TYPE: CT abdomen pelvis w con DATE OF EXAM: 12/09/2020 COMPARISON: 01/02/2020 HISTORY: Left sided pain for 2-[address] DLP: 1480.4 mGycm Automated exposure control for dose reduction was used. CONTRAST: Performed with IV Contrast, patient injected with 100 mL of Isovue 300. Images obtained from the diaphragm to the floor the pelvis with IV contrast. There is a large hiatal hernia. Lung bases show mild atelectasis in the right lower lobe. There is no pleural effusion. Heart size is normal. There is no pericardial effusion. Liver and spleen are intact. The bile ducts are not dilated. Gallbladder appears normal. There is no pancreatic mass. There is no adrenal mass. Kidneys show satisfactory contrast opacification. There is no hydronephrosi s. Delayed images show normal renal excretion. There is no retroperitoneal adenopathy. Bladder disten ds smoothly. There is no inguinal hernia. There is no free fluid in the pelvis. There is no mesenteric edema. There is no ascites or free air. There is no evidence of bowel obstruct ion. There is increased density along the inside of the left upper anterior abdominal wall consistent with extraperitoneal hemorrhage. This measures up to 12 mm in thickness and 11 cm in length. The lumbar vertebra have normal alignment. Posterior elements are intact. There is no compression fra cture. The bony pelvis is intact. Hip joints are intact. IMPRESSION: Minimal atelectasis right lung base similar to old exam. Large hiatal hernia unchanged. Extraperitoneal hemorrhage along the anterior abdominal wall on the left side consistent with muscula r hematoma.
[2020-12-09] MEDS ORDERED: cefTRIAXone IN SWFI 1,000 MG/10 ML SYRINGE IVP STA (22:03)
[2020-12-09 22:46] VITALS: BP 131/74; PULSE 71; RESP 15; TEMP 98.4
== END 2020-12-09 22:41 | disposition home or self-care (01) ==
LOC: EC 17:13
DX: S30.1XXA Contusion of abdominal wall, initial encounter (principal); N39.0 Urinary tract infection, site not specified; M25.512 Pain in left shoulder; X58.XXXA Exposure to other specified factors, initial encounter; K21.9 Gastro-esophageal reflux disease without esophagitis
CPT/HCPCS: 36415; 74177; 80053; 81001; 83690; 85025; 87086; 96374; 99284

== ENCOUNTER → 2021-02-17 | Outpatient (CLI) | payer BC ==
--- NOTE | 2021-02-18 06:37 | CT ---
EXAMINATION TYPE: CT chest w con DATE OF EXAM: 02/17/2021 COMPARISON: Chest x-ray November 06, 2020 HISTORY: SOB and LUQ pain x4 months CT DLP: 483.5 mGycm. Automated Exposure Control for Dose Reduction was Utilized. TECHNIQUE: CT scan of the thorax is performed following with IV Contrast, patient injected with 100 mL of Isovue 300. FINDINGS: LUNGS: Focal right basilar scarring and/or atelectatic change adjacent to large hiatal hernia. Left l trina is clear. No pleural effusion or pneumothorax seen bilaterally. MEDIASTINUM: There are no greater than 1 cm hilar or mediastinal lymph nodes. No pericardial effusi on is seen. Mild cardiomegaly. Moderate to severe coronary artery calcifications and/or stents, juanis elate clinically. Main pulmonary artery measures 3.3 cm in diameter, CT finding consistent with under lying pulmonary artery hypertension. Adjacent ascending aorta measures up to 4.0 cm in diameter. Larg e hiatal hernia containing abnormally rotated stomach again seen. Moderate right atrial dilatation. OTHER: Mild diffuse fatty infiltration of liver redemonstrated. At site of prior suspected hematoma t here is persistent and more prominent defined heterogeneous tissue with adjacent fat stranding superf icially and involving the left upper quadrant of the abdomen centered at the cartilaginous portion of the left anterolateral eighth through 10th ribs. Surgical changes medially in the right breast there is axial image 23 are noted. IMPRESSION: 1. Worsening left anterior abdominal wall ill-defined low density area with superficial and intraperi toneal spread could reflect infectious process progression, poorly defined neoplasm is in differentia l. Consider imaging guided sampling if etiology is unknown. 2. Cardiomegaly with large hiatal hernia. Basilar scarring and/or atelectatic change. No suspicious a cute pulmonary process. Moderate Right atrial dilatation. 3. Underlying pulmonary artery hypertension. Ascending aortic aneurysm up to 4.0 cm.
== END | disposition home or self-care (01) ==
LOC: RADCTMAIN 17:55
PROVIDERS: ATTEND Internal Medicine Hematology & Oncology
DX: I71.2 Thoracic aortic aneurysm, without rupture (principal); K44.9 Diaphragmatic hernia without obstruction or gangrene; I27.20 Pulmonary hypertension, unspecified
CPT/HCPCS: 71260; Q9967

== ENCOUNTER 2021-03-01 08:07 | Day surgery (SDC) | payer BC ==
[2021-03-01 08:41] VITALS: TEMP 98.9
[2021-03-01] MEDS ORDERED: ACETAMINOPHEN TAB 500 MG TAB PO PRN (09:56)
--- NOTE | 2021-03-01 10:02 | CT ---
EXAMINATION TYPE: CT biopsy abdomen percutaneous DATE OF EXAM: 03/01/2021 COMPARISON: NONE HISTORY: Abdominal wall mass CT DLP: 1276mGycm The procedure was explained to the patient. The risks, complications, benefits, and alternatives wer e discussed and any questions were answered. Informed consent was obtained. Patient was placed supi ne on the CT table and prepped and draped in the usual sterile fashion. All elements of maximal barrier and sterile technique utilized. Utilizing CT guidance, an 18 gauge core biopsy needle access into the left abdominal wall mass was ac hieved and two 18 gauge core samples were obtained. The patient was stable throughout the procedure and remained stable upon discharge. IMPRESSION: 1. Successful 18 gauge core biopsy of the requested left anterior abdominal wall mass.
[2021-03-01 11:10] VITALS: RESP 18
[2021-03-01 11:59] VITALS: PULSE 64
[2021-03-01 12:00] VITALS: BP 131/77
== END 2021-03-01 11:45 | disposition home or self-care (01) ==
LOC: RADPROMAIN 08:07
PROVIDERS: ATTEND Internal Medicine Hematology & Oncology
DX: R19.00 Intra-abdominal and pelvic swelling, mass and lump, unspecified site (principal)
CPT/HCPCS: 49180; 77012; 88305

== ENCOUNTER → 2021-06-10 | Outpatient (CLI) | payer BC ==
[2021-06-10 15:15] LABS: African American GFR (CKD) >90 (>60 ml/min/1.73 sqM); Blood Urea Nitrogen 14 mg/dL (7-17); Non-African American GFR(CKD) >90 (>60 ml/min/1.73 sqM)
--- NOTE | 2021-06-11 07:45 | CT ---
EXAMINATION TYPE: CT chest w con DATE OF EXAM: 06/10/2021 COMPARISON: Chest CT February 17, 2021 HISTORY: left sided chest and abdominal pain, hx of breast ca CT DLP: 446.8 mGycm. Automated Exposure Control for Dose Reduction was Utilized. TECHNIQUE: CT scan of the thorax is performed following with IV Contrast, patient injected with 100 mL of Isovue 300. FINDINGS: LUNGS: There is right basilar focal atelectasis or scarring adjacent to hiatal hernia redemonstrated. Left lung remains clear. There is no pleural effusion or pneumothorax seen bilaterally. The trache obronchial tree is patent. MEDIASTINUM: There are no greater than 1 cm hilar or mediastinal lymph nodes. No pericardial effusi on is seen. Cardiomegaly with mild to moderate biatrial dilatation redemonstrated. Persistent large m ain pulmonary artery of 3.5 cm suggesting underlying pulmonary artery hypertension. Coronary artery c alcification is redemonstrated . Adjacent ascending aorta measures up to 4.2 cm axial image 23 OTHER: Large hiatal hernia containing majority of stomach redemonstrated. Surgical clips from medial left-sided breast surgery and axillary dissection redemonstrated. Asymmetric skin thickening presumed posttreatment change to left breast redemonstrated. Underlying scoliosis again seen. Exaggerated tho racic kyphosis with moderate multilevel spurring and disc space narrowing IMPRESSION: No new or acute findings are evident.
== END | disposition home or self-care (01) ==
LOC: RADCTMAIN 14:22
PROVIDERS: ATTEND Internal Medicine Hematology & Oncology
DX: R10.9 Unspecified abdominal pain (principal); R07.89 Other chest pain; Z85.3 Personal history of malignant neoplasm of breast
CPT/HCPCS: 82565; 84520; 71260; 36415; Q9967

== ENCOUNTER → 2021-09-23 | Outpatient (CLI) | payer BC ==
--- NOTE | 2021-09-23 11:11 | BD ---
EXAMINATION TYPE: Axial Bone Density DATE OF EXAM: 09/23/2021 COMPARISON: NONE CLINICAL HISTORY: 61 years year old Female. ICD-10 CODE: Z79.890 POST MENOPAUSAL WITH HRT Height: 62.5 Weight: 201.1 FRAX RISK QUESTIONS: Alcohol (3 or more units per day): no Family History (Parent hip fracture): no Glucocorticoids (More than 3mos): no (Ex: prednisone, prednisolone, methylprednisolone, dexamethasone, and hydrocortisone). History of Fracture in Adulthood: no Secondary Osteoporosis: 1. Type 1 Diabetes: no 2. Hyperthyroidism: no 3. Menopause before 45: yes 4. Malnutrition: no 5. Chronic liver disease: no Rheumatoid Arthritis: no Current Tobacco Use: no RISK FACTORS HISTORY OF: Surgery to Spine/Hip(right/left)/Wrist (right/left): no Family History of Osteoporosis: no Active: no Diet low in dairy products/other sources of calcium: yes Postmenopausal woman: yes Lost more than 2 inches in height since high school: yes MEDICATIONS: Additional History: EXAM MEASUREMENTS: Bone mineral densitometry was performed using the [employer] System. Bone mineral density as measured about the Lumbar spine is: ----- L1-L4(G/cm2): 1.018 T Score Values are as follows: ----- L1: -1.8 ----- L2: -2.5 ----- L3: -0.9 ----- L4: -0.8 ----- L1-L4: -1.4 Bone mineral density has: decreased -7.9 % since study of: 09.04.2019 Bone mineral density about the R hip (g/cm2): 0.777 Bone mineral density about the L hip (g/cm2): 0.832 T Score values are as follows: -----R Neck: -1.9 -----L Neck: -1.5 -----R Total: -1.2 -----L Total: -0.5 Bone mineral density has: decreased -2.9 % since study of: 09.04.2019 FRAX %: The graph provided illustrates a 8.2% chance for a major osteoporotic fx and a 0.9% chance fo r the hips probability for fx in 10 years time. IMPRESSION: Osteopenia lumbar spine. NOTE: T-SCORE=SD OF THE YOUNG ADULT MEAN.
== END | disposition home or self-care (01) ==
LOC: RADBDWWP 08:40
PROVIDERS: ATTEND Internal Medicine Hematology & Oncology
DX: M85.88 Other specified disorders of bone density and structure, other site (principal); C50.212 Malignant neoplasm of upper-inner quadrant of left female breast; Z79.890 Hormone replacement therapy; Z78.0 Asymptomatic menopausal state
CPT/HCPCS: 77080

== ENCOUNTER → 2021-10-06 | Outpatient (CLI) | payer BC ==
--- NOTE | 2021-10-06 15:11 | MM ---
Reason for exam: additional evaluation requested from prior study. Last mammogram was performed 1 year and 5 months ago. History: Patient is postmenopausal and has history of breast cancer at age 59. Malignant US breast localization LT, June 03, 2019. Lumpectomy of the left breast, June 03, 2019. Malignant US biopsy breast VAD LT of the left breast, May 07, 2019. Physical Findings: A clinical breast exam by your physician is recommended on an annual basis and results should be correlated with mammographic findings. MG 3D Diag Mammo W/Cad MARY JANE Bilateral CC and MLO view(s) were taken. Prior study comparison: May 11, 2020, bilateral MG 3d diag mammo w/cad MARY JANE. June 03, 2019, left breast MG diagnostic mammo LT wo CAD. The breast tissue is extremely dense which could obscure a lesion on mammography. Finding: Architectural distortion in the lower inner quadrant, middle position of the left breast consistent with post treatment changes. There is no new dominant lesion. ASSESSMENT: Benign, BI-RAD 2 RECOMMENDATION: Follow-up diagnostic mammogram of both breasts in 1 year.
== END | disposition home or self-care (01) ==
LOC: RADMAMWWP 14:20
PROVIDERS: ATTEND Internal Medicine Hematology & Oncology
DX: R92.8 Other abnormal and inconclusive findings on diagnostic imaging of breast (principal); Z85.3 Personal history of malignant neoplasm of breast; Z78.0 Asymptomatic menopausal state
CPT/HCPCS: 77062; 77066

== ENCOUNTER 2022-08-05 14:13 | Emergency (ER) | payer BC ==
[2022-08-05 14:27] VITALS: TEMP 98.7
[2022-08-05] MEDS ORDERED: SODIUM CHLORIDE 0.9% 1,000 ML IV STA (15:20)
[2022-08-05] MEDS ORDERED: KETOROLAC 15 MG/ML 1 ML VIAL IVP STA (15:21)
[2022-08-05] MEDS ORDERED: MORPHINE SULFATE 2 MG/ML SYRINGE IVP STA (15:21)
--- NOTE | 2022-08-05 15:50 | ED ---
Abdominal Pain HPI - General Chief Complaint: Abdominal Pain Stated Complaint: left side pain Time Seen by Provider: 08/05/22 15:17 Source: patient, RN notes reviewed Mode of arrival: ambulatory Limitations: no limitations - History of Present Illness Initial Comments: This is a 62-year-old female who presents to the emergency department for abdominal pain. States that she's had left-sided abdominal pain since this morning. She has associated nausea but no vomiting. Denies any changes in bowel habits or a history of similar symptoms in the past. She has had colonoscopies, but does not recall if she has ever been told that she has diverticulosis. She does have some relief with a heating pad. She has not tried taking any avno-yzf-vwtntsl pain medications like ibuprofen or Tylenol. Denies any fevers, chills, sore throat, cough, dyspnea, chest pain, palpitations, vomiting, diarrhea, back pain, or headaches. MD Complaint: abdominal pain Location: LUQ, LLQ Associated Symptoms: nausea - Related Data Home Medications Medication Instructions Recorded Confirmed Ergocalciferol [Vitamin D2 (1250 1,250 mcg PO MO 11/06/20 03/01/21 Mcg = 62756 Iu)] Allergies Allergy/AdvReac Type Severity Reaction Status Date / Time aspirin Allergy Anaphylaxis Verified 08/05/22 14:27 codeine Allergy Anaphylaxis Verified 08/05/22 14:27 shellfish derived [Shellfish] Allergy Anaphylaxis Verified 08/05/22 14:27 Review of Systems ROS Statement: Those systems with pertinent positive or pertinent negative responses have been documented in the HPI. ROS Other: All systems not noted in ROS Statement are negative. Past Medical History Past Medical History: Cancer, GERD/Reflux Additional Past Medical History / Comment(s): Light headed occasionally, hiatal hernia, R carpal tunnel syndrome, back pain., left breast cancer, anemia- receives iron infusions, abdominal pain. History of Any Multi-Drug Resistant Organisms: None Reported Past Surgical History: Section, Hysterectomy Additional Past Surgical History / Comment(s): x 3, cervical lymph node excision, EGD, L carpal tunnel release, lt breast lumpectomy with lymph node biopsy. Past Anesthesia/Blood Transfusion Reactions: Motion Sickness, Postoperative Nausea & Vomiting (PONV) Additional Past Anesthesia/Blood Transfusion Reaction / Comment(s): blood transfusion- no reaction Past Psychological History: No Psychological Hx Reported Smoking Status: Never smoker Past Alcohol Use History: None Reported Past Drug Use History: None Reported - Past Family History Father Family Medical History: No Reported History Additional Family Medical History / Comment(s): . Mother Additional Family Medical History / Comment(s): Anemia General Exam Limitations: no limitations General appearance: alert, in no apparent distress Head exam: Present: atraumatic, normocephalic, normal inspection Respiratory exam: Present: normal lung sounds bilaterally. Absent: respiratory distress, wheezes, rales, rhonchi, stridor Cardiovascular Exam: Present: regular rate, normal rhythm, normal heart sounds. Absent: systolic murmur, diastolic murmur, rubs, gallop, clicks GI/Abdominal exam: Present: soft, tenderness (Left lower quadrant), normal bowel sounds. Absent: distended Neurological exam: Present: alert, oriented X3, CN II-XII intact Psychiatric exam: Present: normal affect, normal mood Skin exam: Present: warm, dry, intact, normal color. Absent: rash Course Vital Signs 08/05/22 08/05/22 08/05/22 14:25 15:40 17:00 Temperature 98.7 F Pulse Rate 62 71 Respiratory 20 18 Rate Blood Pressure 135/68 142/68 130/60 O2 Sat by Pulse 99 96 94 L Oximetry 08/05/22 18:00 Temperature Pulse Rate 72 Respiratory 18 Rate Blood Pressure 133/67 O2 Sat by Pulse 95 Oximetry Medical Decision Making - Medical Decision Making This is a 62-year-old female who presents to the emergency department for abdominal pain. Was pt. sent in by a medical professional or institution? @ -No Did you speak to anyone other than the patient for history? @ -No Did you review nursing and triage notes? @ -Yes, and I agree, it is accurate with regards to the patient's symptoms. Were old charts reviewed? @ -No Differential Diagnosis? @ -Differential Abdominal Pain Women: Appendicitis, Cholecystitis, diverticulosis, ischemic bowel, pancreatitis, hepatitis, UTI, gastroenteritis, AAA, incarcerated hernia, bowel obstruction, constipation, inflammatory bowel, hepatitis, peptic ulcer disease, splenic infarction, perforated viscus, vulvitis, ovarian torsion, PID, kidney stone, placenta abruption, this is not meant to be an all-inclusive list CT interpreted by me (1pt min.)? @ -Computed tomography scan of the abdomen and pelvis obtained. My interpre tation identifies no evidence of bowel wall thickening, dilation, or free air. What testing was considered but not performed? (CT, X-rays, U/S, labs)? Why? @ -None What meds were considered but not given? Why? @ -None Did you discuss the management of the patient with other professionals? @ -No Did you reconcile home meds? @ -No Was smoking cessation discussed for >3mins.? @ -No Was critical care preformed (if so, how long)? @ -No Were there social determinants of health that impacted care today? How? (Homelessness, low income, unemployed, alcoholism, drug addiction, transportation, low edu. Level, literacy, decrease access to med. care, shelter, re hab)? @ -No Was there de-escalation of care discussed even if they declined? (Discuss DNR or withdrawal of care, Hospice)? @ -No What co-morbidities impacted this encounter? (DM, HTN, Smoking, COPD, CAD, Cancer, CVA, Hep., AIDS, mental health diagnosis, sleep apnea, morbid obesity)? @ -GERD, morbid obesity Was patient admitted / discharged? @ -Discharged. Lab work obtained and found to be nonactionable. Urinalysis negative for signs of infection. Computed tomography scan of the abdomen and pelvis reveals no acute findings. She noted relief with Toradol followed by Tylenol and declined the need for any stronger pain medication. Advised that symptoms may be musculoskeletal in nature or related to underlying process we cannot fully evaluate in the emergency department. She is advised to alternate with ibuprofen and Tylenol for pain relief and to continue to use her heating pad. She was given information for gastroenterology follow-up as well, she is advised to contact them for a follow-up appointment. Starter packs for ibuprofen and Zofran provided. Undiagnosed new problem with uncertain prognosis? @ -Left sided abdominal pain Drug Therapy requiring intensive monitoring for toxicity (Heparin, Nitro, Insulin, Cardizem)? @ -None Were any procedures done? @ -None Diagnosis/symptom? @ -Left sided abdominal pain Acute, or Chronic, or Acute on Chronic? @ -Acute Uncomplicated (without systemic symptoms) or Complicated (systemic symptoms)? @ -Uncomplicated Side effects of treatment? @ -None Exacerbation, Progression, or Severe Exacerbation] @ -Not applicable Poses a threat to life or bodily function? @ -No Return precautions reviewed in depth, the patient is instructed to return to the emergency department with any new, worsening, or concerning symptoms. Patient verbalized understanding. This case was discussed in detail with the attending ED physician, Dr. Hill. Presentation, findings, and treatment plan discussed in detail as well. - Lab Data Result diagrams: 08/05/22 15:33 08/05/22 15:33 Lab Results 08/05/22 08/05/22 08/05/22 Range/Units 15:33 15:33 15:33 WBC 4.9 (3.8-10.6) k/uL RBC 4.40 (3.80-5.40) m/uL Hgb 13.2 (11.4-16.0) gm/dL Hct 40.9 (34.0-46.0) % MCV 93.1 (80.0-100.0) fL MCH 30.1 (25.0-35.0) pg MCHC 32.4 (31.0-37.0) g/dL RDW 12.5 (11.5-15.5) % Plt Count 177 (150-450) k/uL MPV 8.3 Neutrophils % 64 % Lymphocytes % 22 % Monocytes % 5 % Eosinophils % 7 % Basophils % 1 % Neutrophils # 3.2 (1.3-7.7) k/uL Lymphocytes # 1.1 (1.0-4.8) k/uL Monocytes # 0.2 (0-1.0) k/uL Eosinophils # 0.3 (0-0.7) k/uL Basophils # 0.0 (0-0.2) k/uL Sodium 137 (137-145) mmol/L Potassium 4.3 (3.5-5.1) mmol/L Chloride 105 (98-107) mmol/L Carbon Dioxide 28 (22-30) mmol/L Anion Gap 4 mmol/L BUN 9 (7-17) mg/dL Creatinine 0.55 (0.52-1.04) mg/dL Est GFR (CKD-EPI)AfAm >90 (>60 ml/min/1.73 sqM) Est GFR (CKD-EPI)NonAf >90 (>60 ml/min/1.73 sqM) Glucose 89 (74-99) mg/dL Plasma Lactic Acid Alejandro (0.7-2.0) mmol/L Calcium 8.6 (8.4-10.2) mg/dL Total Bilirubin 1.1 (0.2-1.3) mg/dL AST 21 (14-36) U/L ALT 19 (4-34) U/L Alkaline Phosphatase 115 (38-126) U/L Troponin I (0.000-0.034) ng/mL Total Protein 6.9 (6.3-8.2) g/dL Albumin 3.9 (3.5-5.0) g/dL Amylase 34 (30-110) U/L Lipase 96 (23-300) U/L Urine Color Light Yellow Urine Appearance Clear (Clear) Urine pH 6.5 (5.0-8.0) Ur Specific [place] 1.040 H (1.001-1.035) Urine Protein Negative (Negative) Urine Glucose (UA) Negative (Negative) Urine Ketones Negative (Negative) Urine Blood Negative (Negative) Urine Nitrite Negative (Negative) Urine Bilirubin Negative (Negative) Urine Urobilinogen <2.0 (<2.0) mg/dL Ur Leukocyte Esterase Negative (Negative) 08/05/22 08/05/22 Range/Units 15:33 15:33 WBC (3.8-10.6) k/uL RBC (3.80-5.40) m/uL Hgb (11.4-16.0) gm/dL Hct (34.0-46.0) % MCV (80.0-100.0) fL MCH (25.0-35.0) pg MCHC (31.0-37.0) g/dL RDW (11.5-15.5) % Plt Count (150-450) k/uL MPV Neutrophils % % Lymphocytes % % Monocytes % % Eosinophils % % Basophils % % Neutrophils # (1.3-7.7) k/uL Lymphocytes # (1.0-4.8) k/uL Monocytes # (0-1.0) k/uL Eosinophils # (0-0.7) k/uL Basophils # (0-0.2) k/uL Sodium (137-145) mmol/L Potassium (3.5-5.1) mmol/L Chloride (98-107) mmol/L Carbon Dioxide (22-30) mmol/L Anion Gap mmol/L BUN (7-17) mg/dL Creatinine (0.52-1.04) mg/dL Est GFR (CKD-EPI)AfAm (>60 ml/min/1.73 sqM) Est GFR (CKD-EPI)NonAf (>60 ml/min/1.73 sqM) Glucose (74-99) mg/dL Plasma Lactic Acid Alejandro 1.0 (0.7-2.0) mmol/L Calcium (8.4-10.2) mg/dL Total Bilirubin (0.2-1.3) mg/dL AST (14-36) U/L ALT (4-34) U/L Alkaline Phosphatase (38-126) U/L Troponin I <0.012 (0.000-0.034) ng/mL Total Protein (6.3-8.2) g/dL Albumin (3.5-5.0) g/dL Amylase (30-110) U/L Lipase (23-300) U/L Urine Color Urine Appearance (Clear) Urine pH (5.0-8.0) Ur Specific [place] (1.001-1.035) Urine Protein (Negative) Urine Glucose (UA) (Negative) Urine Ketones (Negative) Urine Blood (Negative) Urine Nitrite (Negative) Urine Bilirubin (Negative) Urine Urobilinogen (<2.0) mg/dL Ur Leukocyte Esterase (Negative) - Radiology Data Radiology results: report reviewed, image reviewed Disposition Clinical Impression: Left sided abdominal pain Disposition: HOME SELF-CARE Instructions (If sedation given, give patient instructions): Abdominal Pain (ED) Additional Instructions: Return to the emergency department with any new, worsening, or concerning symptoms. Alternate with ibuprofen and Tylenol as needed for pain relief. You can continue to use your heating pad if needed. The Zofran can be taken up to every 8 hours as needed for nausea and vomiting. Contact the day care teacher as listed below for a follow-up appointment. Follow up with your primary care provider in 1-2 days. Is patient prescribed a controlled substance at d/c from ED?: No Referrals: None,Stated [Primary Care Provider] - 1-2 days Serene Daniel MD [STAFF PHYSICIAN] - 1-2 days
[2022-08-05 15:52] LABS: Basophils % (A) 1 %; Eosinophils # (A) 0.3 k/uL (0-0.7); Eosinophils % (A) 7 %; HCT 40.9 % (34.0-46.0); HGB 13.2 gm/dL (11.4-16.0); Lymphocytes # (A) 1.1 k/uL (1.0-4.8); Lymphocytes % (A) 22 %; MCH 30.1 pg (25.0-35.0); MCHC 32.4 g/dL (31.0-37.0); MCV 93.1 fL (80.0-100.0); Mean Platelet Volume 8.3; Monocytes # (A) 0.2 k/uL (0-1.0); Monocytes % (A) 5 %; Neutrophils # (A) 3.2 k/uL (1.3-7.7); Neutrophils % (A) 64 %; Platelet Count 177 k/uL (150-450); RDW 12.5 % (11.5-15.5); WBC 4.9 k/uL (3.8-10.6)
[2022-08-05 16:00] LABS: ALT 19 U/L (4-34); AST 21 U/L (14-36); African American GFR (CKD) >90 (>60 ml/min/1.73 sqM); Albumin 3.9 g/dL (3.5-5.0); Alkaline Phosphatase 115 U/L (38-126); Amylase 34 U/L (30-110); Anion Gap 4 mmol/L; Blood Urea Nitrogen 9 mg/dL (7-17); Calcium 8.6 mg/dL (8.4-10.2); Carbon Dioxide 28 mmol/L (22-30); Chloride 105 mmol/L (98-107); Glucose 89 mg/dL (74-99); Lipase 96 U/L (23-300); Non-African American GFR(CKD) >90 (>60 ml/min/1.73 sqM); Potassium 4.3 mmol/L (3.5-5.1); Sodium 137 mmol/L (137-145); Total Bilirubin 1.1 mg/dL (0.2-1.3); Total Protein 6.9 g/dL (6.3-8.2)
--- NOTE | 2022-08-05 16:24 | CT ---
EXAMINATION TYPE: CT abdomen pelvis w con DATE OF EXAM: 08/05/2022 HISTORY: LLQ pain. Hx breast ca CT DLP: 1440.1mGycm Automated Exposure Control for Dose Reduction was Utilized. CONTRAST: CT scan of the abdomen and pelvis is performed without oral but with IV Contrast, patient injected wi th 100 mL of Isovue 300. COMPARISON: CT abdomen and pelvis December 09, 2020 FINDINGS: LUNG BASES: Coronary artery calcification in the RCA distribution is again seen. LIVER/GB: Liver remains diffusely low dense consistent with diffuse fatty infiltration. PANCREAS: No significant abnormality is seen. SPLEEN: No significant abnormality is seen. ADRENALS: No significant abnormality is seen. KIDNEYS: No significant abnormality is seen. BOWEL: Moderate to large size hiatal hernia containing twisted stomach is redemonstrated similar to p rior. Normal-appearing appendix from cecum. No suspicious small or large bowel dilatation is seen. UTERUS/ADNEXA: Uterus surgically absent or markedly atrophic similar to prior. Scattered pelvic phleb oliths are more prominent in the left pelvis similar to prior LYMPH NODES: No greater than 1cm abdominal or pelvic lymph nodes are appreciated. OSSEOUS STRUCTURES: Prominent facet arthropathy in the lower lumbar spine. Multilevel spurring and di sc space narrowing in the thoracolumbar spine. OTHER: Small fat-containing umbilical hernia redemonstrated.. IMPRESSION: No significant acute finding is seen to account for patient's clinical symptoms of left l ower quadrant pain. No significant diverticulosis or CT evidence for acute diverticulitis.
[2022-08-05] MEDS ORDERED: ACETAMINOPHEN TAB 500 MG TAB PO STA (17:12)
[2022-08-05 17:33] LABS: Appearance,Urine Clear (Clear); Bilirubin,Urine Negative (Negative); Blood,Urine Negative (Negative); Color,Urine Light Yellow; Glucose,Urine (UA) Negative (Negative); Ketones,Urine Negative (Negative); Leukocyte Esterase,Urine Negative (Negative); Nitrite,Urine Negative (Negative); PH, Urine 6.5 (5.0-8.0); Protein,Urine Negative (Negative); Urobilinogen,Urine <2.0 mg/dL (<2.0)
[2022-08-05 18:05] VITALS: BP 133/67; PULSE 72; RESP 18
[2022-08-05] MEDS ORDERED: IBUPROFEN 600 MG STARTER PACK 4 TAB BTL PO STA (18:39)
[2022-08-05] MEDS ORDERED: ONDANSETRON 4 MG ODT STARTER PACK 2 TAB BTL PO STA (18:39)
== END 2022-08-05 19:06 | disposition home or self-care (01) ==
LOC: EC 14:13
DX: R10.32 Left lower quadrant pain (principal); R10.12 Left upper quadrant pain; Z88.6 Allergy status to analgesic agent; Z88.5 Allergy status to narcotic agent; Z90.710 Acquired absence of both cervix and uterus
CPT/HCPCS: 36415; 80053; 82150; 83605; 83690; 84484; 85025; 81003; 74177; 99284; 96374; 96361; J1885; S0119; Q9967

== ENCOUNTER → 2022-10-11 | Outpatient (CLI) | payer BC ==
--- NOTE | 2022-10-12 10:17 | MM ---
Reason for Exam: Screening (asymptomatic). Last mammogram was performed 1 year(s) and 1 month(s) ago. Patient History: Menarche at age 15. First Full-Term at age 20. Hysterectomy at age 39. Postmenopausal. Breast cancer, age 59. Previous chest radiation therapy at age 59. 06/03/2019, Lumpectomy on the Left side. Malignant Core Biopsy. 05/07/2019, Malignant Core Biopsy on the left side. Prior Study Comparison: 06/03/2019 Left Diagnostic Mammogram, [facility]. 05/11/2020 Bilateral Diagnostic Mammogram, [facility]. 10/06/2021 Bilateral Diagnostic Mammogram, [facility]. Tissue Density: The breast tissue is extremely dense which could obscure a lesion on mammography. Findings: Analyzed By CAD. Pattern appears stable. Prior biopsy changes are within the left breast appear unchanged. Multiple surgical clips are present. No suspicious groups of microcalcifications, spiculated or lobular masses, architectural distortion or other secondary signs of malignancy are mammographically apparent. Overall Assessment: Benign, BI-RAD 2 Management: Screening Mammogram of both breasts in 1 year. A negative mammogram report should not preclude additional follow up of suspicious palpable abnormalities. Patient should continue monthly self breast exam. A clinical breast exam by your physician is recommended on an annual basis and results should be correlated with mammographic findings. Electronically signed and approved by: Sandor Chew D.O. Radiologis
== END | disposition home or self-care (01) ==
LOC: RADMAMWWP 15:46
PROVIDERS: ATTEND Internal Medicine Hematology & Oncology
DX: Z12.31 Encounter for screening mammogram for malignant neoplasm of breast (principal); Z78.0 Asymptomatic menopausal state
CPT/HCPCS: 77063; 77067

== ENCOUNTER 2022-12-20 12:01 | Observation (INO) | payer BC ==
--- NOTE | 2022-12-20 12:05 | ED ---
General Adult HPI - General Source: RN notes reviewed <Irasema Hanson - Last Filed: 12/20/22 12:03> - General Source: patient, RN notes reviewed Mode of arrival: ambulatory Limitations: no limitations <Kleber Navarro - Last Filed: 12/20/22 19:48> - General Stated complaint: Left rib Pain Time Seen by Provider: 12/20/22 12:03 - History of Present Illness Initial comments: 62-year-old female presents to the emergency department with a chief complaint of left flank pain that started 3 days ago. (Irasema Hanson) Patient is a pleasant 62-year-old female presenting to the emergency department left side pain. Onset was while lifting an object approximately 25 pounds 4 days ago. Patient has had steady discomfort since that time. Discomfort does seem worse today. Discomfort is left lateral lower ribs. Discomfort is greatly increased with movement. Patient denies dyspnea however states discomfort does increase with deep breaths at times. No fever. No cough. (Kleber Navarro) - Related Data Home Medications Medication Instructions Recorded Confirmed Alendronate Sodium [Fosamax] 70 mg PO WEEKLY 12/20/22 12/20/22 Baclofen 10 mg PO HS 12/20/22 12/20/22 Allergies Allergy/AdvReac Type Severity Reaction Status Date / Time aspirin Allergy Anaphylaxis Verified 12/20/22 15:20 codeine Allergy Anaphylaxis Verified 12/20/22 15:20 shellfish derived [Shellfish] Allergy Anaphylaxis Verified 12/20/22 15:20 Review of Systems ROS Other: All systems not noted in ROS Statement are negative. <Irasema Hanson - Last Filed: 12/20/22 12:03> ROS Other: All systems not noted in ROS Statement are negative. Constitutional: Denies: fever Eyes: Denies: eye pain ENT: Denies: ear pain Respiratory: Reports: as per HPI. Denies: cough, dyspnea Cardiovascular: Reports: as per HPI Endocrine: Denies: fatigue Gastrointestinal: Denies: abdominal pain Genitourinary: Denies: dysuria Musculoskeletal: Reports: as per HPI Skin: Denies: rash Neurological: Denies: weakness <Kleber Navarro - Last Filed: 12/20/22 19:48> ROS Statement: Those systems with pertinent positive or pertinent negative responses have been documented in the HPI. Past Medical History Past Medical History: Cancer, GERD/Reflux Additional Past Medical History / Comment(s): Light headed occasionally, hiatal hernia, R carpal tunnel syndrome, back pain., left breast cancer, anemia- receives iron infusions, abdominal pain. History of Any Multi-Drug Resistant Organisms: None Reported Past Surgical History: Section, Hysterectomy Additional Past Surgical History / Comment(s): x 3, cervical lymph node excision, EGD, L carpal tunnel release, lt breast lumpectomy with lymph node biopsy. Past Anesthesia/Blood Transfusion Reactions: Motion Sickness, Postoperative Nausea & Vomiting (PONV) Additional Past Anesthesia/Blood Transfusion Reaction / Comment(s): blood transfusion- no reaction Past Psychological History: No Psychological Hx Reported Smoking Status: Never smoker Past Alcohol Use History: None Reported Past Drug Use History: None Reported - Past Family History Father Family Medical History: No Reported History Additional Family Medical History / Comment(s): . Mother Additional Family Medical History / Comment(s): Anemia <Irasema Hanson - Last Filed: 12/20/22 12:03> General Exam <Irasema Hanson - Last Filed: 12/20/22 12:03> Limitations: no limitations General appearance: alert Head exam: Present: atraumatic, normocephalic Eye exam: Present: normal appearance Neck exam: Present: normal inspection. Absent: tenderness Respiratory exam: Present: normal lung sounds bilaterally, chest wall tenderness (Left lateral lower ribs and somewhat posterior.) Cardiovascular Exam: Present: regular rate, normal rhythm GI/Abdominal exam: Present: soft. Absent: tenderness Extremities exam: Present: normal inspection Back exam: Present: tenderness (Left lower posterior ribs above the CVA). Absent: vertebral tenderness Neurological exam: Present: alert Psychiatric exam: Present: normal affect, normal mood Skin exam: Present: normal color <Kleber Navarro - Last Filed: 12/20/22 19:48> - General Exam Comments Initial Comments: Visual Physical Exam Vital signs reviewed General: Well-appearing, nontoxic, no acute distress. Head: Normocephalic, atraumatic Eyes: PERRLA, EOMI ENT: Airway patent Chest: Nonlabored breathing Skin: No visual rash, normal skin tone Neuro: Alert and oriented 3 Musculoskeletal: No gross abnormalities (Irasema Hanson) Course Vital Signs 06/12/20/22 12/20/22 12:55 16:25 17:14 Temperature 97.4 F L Pulse Rate 63 74 67 Respiratory 20 18 18 Rate Blood Pressure 145/76 141/79 145/69 O2 Sat by Pulse 98 96 96 Oximetry EKG Findings - EKG Results: EKG: interpreted by TJ (Left axis), sinus rhythm, normal QRS, normal ST/T <Kleber Navarro - Last Filed: 12/20/22 19:48> Medical Decision Making - Lab Data Result diagrams: 12/20/22 13:24 12/20/22 13:24 <Kleber Navarro - Last Filed: 12/20/22 19:48> - Medical Decision Making Was pt. sent in by a medical professional or institution (, PA, BLOCK STACKER, urgent care, hospital, or long-term...) When possible be specific @ -No Did you speak to anyone other than the patient for history (EMS, parent, family, police, friend...)? What history was obtained from this source @ -No Did you review nursing and triage notes (agree or disagree)? Why? @ -I reviewed and agree with nursing and triage notes Were old charts reviewed (outside hosp., previous admission, EMS record, old EKG, old radiological studies, urgent care reports/EKG's, long-term records)? Report findings @ -No old charts were reviewed Differential Diagnosis (chest pain, altered mental status, abdominal pain women, abdominal pain men, vaginal bleeding, weakness, fever, dyspnea, syncope, headache, dizziness, GI bleed, back pain, seizure, CVA, palpatations, mental health)? @ -Differential Chest Pain: Stable Angina, Unstable Angina, STEMI, NSTEMI Aortic Dissection, Pneumothorax, Musculoskeletal, Esophageal Spasm GERD, Cholecystitis, Pancreatitis, Zoster, this is not meant to be an all-inclusive list. EKG interpreted by me (3pts min.). @ -As above X-rays interpreted by me (1pt min.). @ -Chest x-ray shows no acute process CT interpreted by me (1pt min.). @ -For reviewed U/S interpreted by me (1pt. min.). @ -None done What testing was considered but not performed or refused? (CT, X-rays, U/S, labs)? Why? @ -None What meds were considered but not given or refused? Why? @ -None Did you discuss the management of the patient with other professionals (professionals i.e. DrTrice, PA, BLOCK STACKER, lab, RT, psych nurse, adoption social worker, candy dipper, teacher, toxics program officer, case management coordinator)? Give summary @ -Case was discussed with practitionersandoval Marcus, who will admit covering hospital call Was smoking cessation discussed for >3mins.? @ -No Was critical care preformed (if so, how long)? @ -No Were there social determinants of health that impacted care today? How? (Homelessness, low income, unemployed, alcoholism, drug addiction, transportation, low edu. Level, literacy, decrease access to med. care, long term, rehab)? @ -No Was there de-escalation of care discussed even if they declined (Discuss DNR or withdrawal of care, Hospice)? DNR status @ -No What co-morbidities impacted this encounter? (DM, HTN, Smoking, COPD, CAD, Cancer, CVA, ARF, Chemo, Hep., AIDS, mental health diagnosis, sleep apnea, morbid obesity)? @ -None Was patient admitted / discharged? Hospital course, mention meds given and route, prescriptions, significant lab abnormalities, going to OR and other p ertinent info. @ -Patient presents with chest/rib discomfort that is more consistent with chest wall pain or muscular skeletal. Computed tomography scan without obvious pulmonary embolism however is limited. Patient still having pain. Patient will be held for observation with pain control and further evaluation Undiagnosed new problem with uncertain prognosis? @ -No Drug Therapy requiring intensive monitoring for toxicity (Heparin, Nitro, Insulin, Cardizem)? @ -No Were any procedures done? @ -No Diagnosis/symptom? @ -Chest pain Acute, or Chronic, or Acute on Chronic? @ -Acute Uncomplicated (without systemic symptoms) or Complicated (systemic symptoms)? @ -default Side effects of treatment? @ -No Exacerbation, Progression, or Severe Exacerbation? @ -No Poses a threat to life or bodily function? How? (Chest pain, [place], [place], pneumonia, PE, COPD, DKA, ARF, appy, cholecystitis, CVA, Diverticulitis, Homicidal, Suicidal, threat to staff... and all critical care pts) @ -No (Kleber Navarro) - Lab Data Lab Results 12/20/22 12/20/22 12/20/22 Range/Units 13:24 13:24 14:38 WBC 6.4 (3.8-10.6) k/uL RBC 4.33 (3.80-5.40) m/uL Hgb 12.7 (11.4-16.0) gm/dL Hct 40.6 (34.0-46.0) % MCV 93.8 (80.0-100.0) fL MCH 29.2 (25.0-35.0) pg MCHC 31.2 (31.0-37.0) g/dL RDW 13.0 (11.5-15.5) % Plt Count 199 (150-450) k/uL MPV 8.2 Neutrophils % 73 % Lymphocytes % 14 % Monocytes % 6 % Eosinophils % 6 % Basophils % 0 % Neutrophils # 4.6 (1.3-7.7) k/uL Lymphocytes # 0.9 L (1.0-4.8) k/uL Monocytes # 0.4 (0-1.0) k/uL Eosinophils # 0.4 (0-0.7) k/uL Basophils # 0.0 (0-0.2) k/uL D-Dimer 0.68 H (<0.60) mg/L FEU Sodium 141 (137-145) mmol/L Potassium 4.3 (3.5-5.1) mmol/L Chloride 105 (98-107) mmol/L Carbon Dioxide 27 (22-30) mmol/L Anion Gap 9 mmol/L BUN 10 (7-17) mg/dL Creatinine 0.68 (0.52-1.04) mg/dL Est GFR (CKD-EPI)AfAm >90 (>60 ml/min/1.73 sqM) Est GFR (CKD-EPI)NonAf >90 (>60 ml/min/1.73 sqM) Glucose 96 (74-99) mg/dL Calcium 8.9 (8.4-10.2) mg/dL Total Bilirubin 0.9 (0.2-1.3) mg/dL AST 24 (14-36) U/L ALT 19 (4-34) U/L Alkaline Phosphatase 115 (38-126) U/L Troponin I (0.000-0.034) ng/mL Total Protein 6.9 (6.3-8.2) g/dL Albumin 3.9 (3.5-5.0) g/dL 12/20/22 Range/Units 14:38 WBC (3.8-10.6) k/uL RBC (3.80-5.40) m/uL Hgb (11.4-16.0) gm/dL Hct (34.0-46.0) % MCV (80.0-100.0) fL MCH (25.0-35.0) pg MCHC (31.0-37.0) g/dL RDW (11.5-15.5) % Plt Count (150-450) k/uL MPV Neutrophils % % Lymphocytes % % Monocytes % % Eosinophils % % Basophils % % Neutrophils # (1.3-7.7) k/uL Lymphocytes # (1.0-4.8) k/uL Monocytes # (0-1.0) k/uL Eosinophils # (0-0.7) k/uL Basophils # (0-0.2) k/uL D-Dimer (<0.60) mg/L FEU Sodium (137-145) mmol/L Potassium (3.5-5.1) mmol/L Chloride (98-107) mmol/L Carbon Dioxide (22-30) mmol/L Anion Gap mmol/L BUN (7-17) mg/dL Creatinine (0.52-1.04) mg/dL Est GFR (CKD-EPI)AfAm (>60 ml/min/1.73 sqM) Est GFR (CKD-EPI)NonAf (>60 ml/min/1.73 sqM) Glucose (74-99) mg/dL Calcium (8.4-10.2) mg/dL Total Bilirubin (0.2-1.3) mg/dL AST (14-36) U/L ALT (4-34) U/L Alkaline Phosphatase (38-126) U/L Troponin I <0.012 (0.000-0.034) ng/mL Total Protein (6.3-8.2) g/dL Albumin (3.5-5.0) g/dL Disposition <Irasema Hanson - Last Filed: 12/20/22 12:03> Is patient prescribed a controlled substance at d/c from ED?: No Time of Disposition: 19:48 <Kleber Navarro - Last Filed: 12/20/22 19:48> Clinical Impression: Chest pain Disposition: ADMITTED IP TO THIS HOSP Referrals: Rafael Hathaway MD [Family Provider] - 1-2 days
[2022-12-20 13:49] LABS: Basophils % (A) 0 %; Eosinophils # (A) 0.4 k/uL (0-0.7); Eosinophils % (A) 6 %; HCT 40.6 % (34.0-46.0); HGB 12.7 gm/dL (11.4-16.0); Lymphocytes # (A) 0.9 k/uL (1.0-4.8); Lymphocytes % (A) 14 %; MCH 29.2 pg (25.0-35.0); MCHC 31.2 g/dL (31.0-37.0); MCV 93.8 fL (80.0-100.0); Mean Platelet Volume 8.2; Monocytes # (A) 0.4 k/uL (0-1.0); Monocytes % (A) 6 %; Neutrophils # (A) 4.6 k/uL (1.3-7.7); Neutrophils % (A) 73 %; Platelet Count 199 k/uL (150-450); RBC 4.33 m/uL (3.80-5.40); WBC 6.4 k/uL (3.8-10.6)
[2022-12-20 13:52] LABS: ALT 19 U/L (4-34); AST 24 U/L (14-36); African American GFR (CKD) >90 (>60 ml/min/1.73 sqM); Albumin 3.9 g/dL (3.5-5.0); Alkaline Phosphatase 115 U/L (38-126); Anion Gap 9 mmol/L; Blood Urea Nitrogen 10 mg/dL (7-17); Calcium 8.9 mg/dL (8.4-10.2); Carbon Dioxide 27 mmol/L (22-30); Chloride 105 mmol/L (98-107); Glucose 96 mg/dL (74-99); Non-African American GFR(CKD) >90 (>60 ml/min/1.73 sqM); Potassium 4.3 mmol/L (3.5-5.1); Sodium 141 mmol/L (137-145); Total Bilirubin 0.9 mg/dL (0.2-1.3); Total Protein 6.9 g/dL (6.3-8.2)
[2022-12-20] MEDS ORDERED: HYDROmorphone 1 MG/ML 1 ML SYRINGE IVP STA (14:08)
--- NOTE | 2022-12-20 14:36 | XR ---
EXAMINATION TYPE: XR chest 2V DATE OF EXAM: 12/20/2022 COMPARISON: 11/06/2020 HISTORY: 62-year-old female left-sided abdominal pain TECHNIQUE: PA and lateral views FINDINGS: Heart mildly enlarged. Patient rotated towards the right altering the normal cardiac mediastinal cont ours. Interstitial prominence and hyperinflation. No consolidation or pleural effusion. Surgical clip s left breast. Underlying large hiatal hernia noted. Suspect chronic full-thickness rotator cuff tear right shoulder. IMPRESSION: Mild cardiomegaly and COPD. Underlying large hiatal hernia. Otherwise, no acute process seen.
[2022-12-20] MEDS ORDERED: FAMOTIDINE 20 MG/2 ML VIAL IV STA (15:28)
[2022-12-20] MEDS ORDERED: methylPREDNISolone SOD SUCCI 125 MG/2 ML VIAL IV STA (15:28)
[2022-12-20] MEDS ORDERED: diphenhydrAMINE 50 MG/ML 1 ML VIAL IVP STA (15:28)
--- NOTE | 2022-12-20 16:48 | CT ---
EXAMINATION TYPE: CT angio chest DATE OF EXAM: 12/20/2022 COMPARISON: 06/10/2021 HISTORY: 62-year-old female Rib pain with elevated d-dimer TECHNIQUE: Contiguous axial scanning of the chest performed with IV Contrast, patient injected with 7 5ml mL of Isovue 370. Coronal/sagittal MIP reconstructions performed. CT DLP: 471.7 mGycm Automated exposure control for dose reduction was used. FINDINGS: Heart is enlarged without pericardial effusion. LAD coronary artery calcifications are present. No fl attening of the interventricular septum or reflux of contrast into the hepatic veins. Aneurysm ascending aorta 4.2 cm. Conventional arch vessel branching anatomy. Large caliber to the main right and left pulmonary arteries measuring up to 2.6 cm suggests underlyin g pulmonary hypertension. While there is satisfactory opacification of the pulmonary arterial system, there is extensive breath ing motion which markedly limits assessment for pulmonary emboli. No large central pulmonary embolus is seen. Many of the lobar, segmental, and more distal arterial branches are either very limited and nondiagnostic. No thoracic lymphadenopathy by CT size criteria. Hazy opacities, probably generalized areas of atelectasis. Additional strandy atelectasis is present. There may be some mild septal lines in the upper lungs and mild groundglass change. Trace left pleural effusion. Surgical clips related to prior excision medial left breast. There is a large hiatal hernia with the entire stomach located in the lower chest. Visualized upper abdomen shows hydropic gallbladder 4.0 cm wide, probably due to fasting state. Bones: Degenerative levoconvex scoliosis of the lumbar spine. Accentuated mid to lower thoracic kypho sis. IMPRESSION: 1. THE PATIENT IS BREATHING THROUGH THE SCAN. VERY LIMITED ASSESSMENT FOR PULMONARY EMBOLI. NO DEFINI TE LARGE CENTRAL PULMONARY EMBOLUS. MANY OF THE LOBAR, SEGMENTAL, AND MORE DISCHARGE OR BRANCHES ARE VERY LIMITED AND NONDIAGNOSTIC AND EMBOLI IN THESE LOCATIONS CANNOT BE ADEQUATELY EXCLUDED ON THE BAS IS OF THIS EXAM. 2. CARDIOMEGALY WITH PULMONARY ARTERY HYPERTENSION. THERE IS A TRACE LEFT EFFUSION WITH MILD SEPTAL L IRVIN AND GROUNDGLASS CHANGE IN THE UPPER LUNGS. CONSIDER MILD CHF WITH PULMONARY VASCULAR CONGESTION. 3. ADDITIONAL PROMINENT STRANDY LOWER LUNG AREAS OF ATELECTASIS. 4. LARGE HIATAL HERNIA WITH THE STOMACH LOCATED IN THE LOWER CHEST.
[2022-12-20 19:40] LABS: Appearance,Urine Clear (Clear); Bilirubin,Urine Negative (Negative); Blood,Urine Small (Negative); Color,Urine Yellow; Glucose,Urine (UA) Negative (Negative); Ketones,Urine 1+ (Negative); Leukocyte Esterase,Urine Small (Negative); Mucus,Urine Occasional /hpf; Nitrite,Urine Positive (Negative); PH, Urine 5.5 (5.0-8.0); Protein,Urine Negative (Negative); RBC,Urine 3 /hpf (0-5); Squamous Epithelial Cell,Urine 1 /hpf (0-4); Urobilinogen,Urine <2.0 mg/dL (<2.0); WBC,Urine 7 /hpf (0-5)
[2022-12-20] MEDS ORDERED: KETOROLAC 15 MG/ML 1 ML VIAL IVP STA (19:46)
[2022-12-20] MEDS ORDERED: HYDROmorphone 0.5 MG/0.5 ML SYRINGE IVP PRN (19:49)
[2022-12-20] MEDS ORDERED: NALOXONE 0.4 MG/ML 1 ML VIAL IV PRN (19:49)
[2022-12-20] MEDS ORDERED: ACETAMINOPHEN TAB 325 MG TAB PO PRN (19:49)
[2022-12-20] MEDS ORDERED: HYDROmorphone 1 MG/ML 1 ML SYRINGE IVP PRN (19:49)
[2022-12-20 21:25] LABS: Specific Gravity,Urine >1.050 (1.001-1.035)
[2022-12-20] MEDS: FAMOTIDINE 20 MG TAB PO SCH (21:29)
[2022-12-21] MEDS: KETOROLAC 15 MG/ML 1 ML VIAL IVP PRN ×2 (04:56→11:05)
[2022-12-21] MEDS: FAMOTIDINE 20 MG TAB PO SCH ×2 (08:06→21:56)
--- NOTE | 2022-12-21 09:56 | XR ---
EXAMINATION TYPE: XR lumbar spine 2 or 3V DATE OF EXAM: 12/21/2022 CLINICAL HISTORY: pain TECHNIQUE: Three views of the lumbar spine are submitted. COMPARISON: None. FINDINGS: There are 5 lumbar type vertebral bodies identified. The lumbar spine shows satisfactory alignment w ithout evidence of acute fracture or dislocation. Vertebral body heights are within normal limits. Mild degenerative disc space narrowing. Moderate facet joint arthropathy. The overlying soft tissue appears unremarkable. IMPRESSION: No acute fracture or dislocation is seen in the lumbar spine. ICD 10 NO FRACTURE, INITIAL EVALUATION
--- NOTE | 2022-12-21 10:01 | XR ---
EXAMINATION TYPE: XR KUB DATE OF EXAM: 12/21/2022 COMPARISON: NONE HISTORY: Pain TECHNIQUE: Single supine KUB image of the abdomen is obtained FINDINGS: Small bowel demonstrates no evidence for dilatation or air fluid levels. Gas and fecal material is seen in non-distended colon. No convincing evidence for pneumoperitoneum. No unusual calcifications. The lung bases are clear. The osseous structures are intact. IMPRESSION: 1. Overall nonobstructive bowel gas pattern.
[2022-12-21] MEDS ORDERED: SODIUM FERRIC GLUCONAT-SUCROSE 125 MG in SODIUM CHLORIDE 0.9% 100 ML IVPB ONE (10:02)
[2022-12-21] MEDS ORDERED: traMADol 50 MG TAB PO PRN (12:37)
--- NOTE | 2022-12-21 12:44 | P.HPIM ---
History of Present Illness Patient is a pleasant 62-year-old female came in with compensative lumbar back pain radiating to the front of the abdomen on the left side along with left upper quadrant abdominal pain. The pain started after lifting a object of 25 pounds. Patient denied any other chest pain troponins are negative EKG did not show any acute ST-T wave changes chest x-ray was within normal limits patient had minimally elevated d-dimer because of which CT angios the chest was obtained which did not show any pulmonary embolism but showed hiatal hernia with anti- stomach being in the chest. Patient pain is moderate to severe anywhere between 7-10 controlled with pain medications. Lumbar spinal x-ray and abdominal x-ray did not show any significant abnormality. Patient denied any nausea vomiting REVIEW OF SYSTEMS: CONSTITUTIONAL: No fever, no malaise, no fatigue. HEENT: No recent visual problems or hearing problems. Denied any sore throat. CARDIOVASCULAR: No chest pain, orthopnea, PND, no palpitations, no syncope. PULMONARY: No shortness of breath, no cough, no hemoptysis. GASTROINTESTINAL: As mentioned in HPI NEUROLOGICAL: No headaches, no weakness, no numbness. HEMATOLOGICAL: Denies any bleeding or petechiae. GENITOURINARY: Denies any burning micturition, frequency, or urgency. MUSCULOSKELETAL/RHEUMATOLOGICAL: Denies any joint pain, swelling, or any muscle pain. ENDOCRINE: Denies any polyuria or polydipsia. The rest of the 14-point review of systems is negative. PHYSICAL EXAMINATION: GENERAL: The patient is alert and oriented x3, not in any acute distress. Well developed, well nourished. HEENT: Pupils are round and equally reacting to light. EOMI. No scleral icterus. No conjunctival pallor. Normocephalic, atraumatic. No pharyngeal erythema. No thyromegaly. CARDIOVASCULAR: S1 and S2 present. No murmurs, rubs, or gallops. PULMONARY: Chest is clear to auscultation, no wheezing or crackles. ABDOMEN: Does have some tenderness in the left upper quadrant nondistended, normoactive bowel sounds. No palpable organomegaly. MUSCULOSKELETAL: No joint swelling or deformity. EXTREMITIES: No cyanosis, clubbing, or pedal edema. NEUROLOGICAL: Gross neurological examination did not reveal any focal deficits. SKIN: No rashes. Assessment and plan 1 abdominal pain and back pain as described above this is mostly due to hiatal hernia patient was started on Protonix will get the general surgery opinion. There may be some lumbar spinal degenerative disease. Patient was started on tramadol discontinue: Toradol. Ruled out Pulmonary embolism -Gastroesophageal reflux disease and hiatal hernia DVT prophylaxis: Lovenox Past Medical History Past Medical History: Cancer, GERD/Reflux Additional Past Medical History / Comment(s): Light headed occasionally, hiatal hernia, R carpal tunnel syndrome, back pain., left breast cancer, anemia-r eceives iron infusions, abdominal pain. History of Any Multi-Drug Resistant Organisms: None Reported Past Surgical History: Section, Hysterectomy Additional Past Surgical History / Comment(s): x 3, cervical lymph node excision, EGD, L carpal tunnel release, lt breast lumpectomy with lymph node biopsy. Past Anesthesia/Blood Transfusion Reactions: Motion Sickness, Postoperative N ausea & Vomiting (PONV) Additional Past Anesthesia/Blood Transfusion Reaction / Comment(s): blood transfusion- no reaction Past Psychological History: No Psychological Hx Reported Additional Psychological History / Comment(s): . Smoking Status: Never smoker Past Alcohol Use History: None Reported Past Drug Use History: None Reported - Past Family History Father Family Medical History: No Reported History Additional Family Medical History / Comment(s): . Mother Additional Family Medical History / Comment(s): Anemia Medications and Allergies Home Medications Medication Instructions Recorded Confirmed Type Alendronate Sodium [Fosamax] 70 mg PO WEEKLY 12/20/22 12/20/22 History Baclofen 10 mg PO HS 12/20/22 12/20/22 History Allergies Allergy/AdvReac Type Severity Reaction Status Date / Time aspirin Allergy Anaphylaxis Verified 12/20/22 15:20 codeine Allergy Anaphylaxis Verified 12/20/22 15:20 shellfish derived [Shellfish] Allergy Anaphylaxis Verified 12/20/22 15:20 Physical Exam Vitals: Vital Signs Temp Pulse Pulse Resp BP BP Pulse Ox 12/21/22 07:00 97.7 F 68 16 95/52 95 12/21/22 02:33 97.7 F 69 18 124/63 94 L 12/21/22 02:00 69 18 12/20/22 22:55 18 12/20/22 22:19 97.9 F 87 15 125/67 93 L 12/20/22 21:32 87 18 118/81 95 12/20/22 17:14 67 18 145/69 96 12/20/22 16:25 74 18 141/79 96 12/20/22 12:55 97.4 F L 63 20 145/76 98 Intake and Output 12/20/22 12/21/22 12/21/22 22:59 06:59 14:59 Other: Voiding Method Toilet Toilet # Voids 1 Weight 90.718 kg Results CBC & Chem 7: 12/20/22 13:24 12/20/22 13:24 Labs: Abnormal Lab Results - Last 24 Hours (Table) 12/20/22 12/20/22 12/20/22 Range/Units 13:24 14:38 19:10 Lymphocytes # 0.9 L (1.0-4.8) k/uL D-Dimer 0.68 H (<0.60) mg/L FEU Ur Specific [place] >1.050 H (1.001-1.035) Urine Ketones 1+ H (Negative) Urine Blood Small H (Negative) Urine Nitrite Positive H (Negative) Ur Leukocyte Esterase Small H (Negative) Urine WBC 7 H (0-5) /hpf Urine Mucus Occasional H (None) /hpf Thrombosis Risk Factor Assmnt - Choose All That Apply Any of the Below Risk Factors Present?: Yes Each Factor Represents 1 point: Age 41-60 years, Obesity (BMI >25) Other Risk Factors: No Other congenital or acquired thrombophilia - If yes, enter type in comment: No Thrombosis Risk Factor Assessment Total Risk Factor Score: 2 Thrombosis Risk Factor Assessment Level: Low Risk
--- NOTE | 2022-12-21 15:59 | P.GSCN ---
History of Present Illness Consult date: 12/21/22 History of present illness: CHIEF COMPLAINT: Left side and back pain HISTORY OF PRESENT ILLNESS: This is a 62-year-old female who presented to the hospital with complaints of left-sided abdomen and back pain 6 days. Patient reports that she had been lifting objects about 25 pounds and has had pain since. Patient had a CTA of the chest that showed no evidence of PE but was a limited study. It did reveal evidence of a large hiatal hernia with the stomach located in the lower chest. I surgical service has been consulted in regards to the large hiatal hernia. Patient does report having nausea and episodes of heartburn in which she takes Pepcid as needed at home. She does report some abdominal bloating and decreased appetite. She reports that she is unable to eat as much as she used to. She reports no change in bowel movements. She does complain of pressure in the left shoulder when she lays flat on her back. Patient does report having a known history of a small hiatal hernia. PAST MEDICAL HISTORY: Left breast cancer status post lumpectomy, hiatal hernia and GERD, anemia and receives iron infusions PAST SURGICAL HISTORY: , hysterectomy left breast lumpectomy MEDICATIONS: See below ALLERGIES: See below SOCIAL HISTORY: No illicit drug use. REVIEW OF SYSTEMS: CONSTITUTIONAL: Denies fever or chills. HEENT: Denies blurred vision, vision changes, or eye pain. Denies hemoptysis CARDIOVASCULAR: Denies chest pain or pressure. RESPIRATORY: No shortness of breath. GASTROINTESTINAL: See HPI for pertinent findings HEMATOLOGIC: Denies bleeding disorders. GENITOURINARY: Denies any blood in urine or increased urinary frequency. SKIN: Denies pruitis. Denies rash. PHYSICAL EXAM: VITAL SIGNS: Reviewed GENERAL: Well-developed in no acute distress. HEENT: No sclera icterus. Extraocular movements grossly intact. Moist buccal mucosa. Head is atraumatic, normocephalic. No nasal drainage. ABDOMEN: Soft. Nondistended. Nontender NEUROLOGIC: Alert and oriented. Cranial nerves II through XII grossly intact. LABORATORY DATA: WBC is 6.4 Hgb 12.7 platelet 199 D-dimer 0.68 Sodium is 141 potassium 4.3 creatinine 0.68 Troponins negative 3 IMAGING: Chest CTA patient breathing through the scan. Very limited assessment for pulmonary emboli. No definite large central pulmonary embolus. Many of the lobar, segmental and more branches are very limited and nondiagnostic for emboli in these locations cannot be adequately excluded on the basis of this exam. Cardiomegaly with pulmonary artery hypertension. There is trace left effusion with mild septal lines and groundglass changes in the upper lungs. Consider mild CHF and pulmonary vascular congestion. Additional prominent strandy lower lung areas of atelectasis. Large hiatal hernia with the stomach located in the lower as chest ASSESSMENT: 1. Large hiatal hernia with intrathoracic stomach PLAN: -Patient scheduled for EGD tomorrow with Dr. Larkin -Nothing by mouth after midnight -Continue Pepcid Thank you for this consultation Physician Supervisor Veneer note has been reviewed by physician. Signing provider agrees with the documented findings, assessment, and plan of care. Past Medical History Past Medical History: Cancer, GERD/Reflux Additional Past Medical History / Comment(s): Light headed occasionally, hiatal hernia, R carpal tunnel syndrome, back pain., left breast cancer, anemia- receives iron infusions, abdominal pain. History of Any Multi-Drug Resistant Organisms: None Reported Past Surgical History: Section, Hysterectomy Additional Past Surgical History / Comment(s): x 3, cervical lymph node excision, EGD, L carpal tunnel release, lt breast lumpectomy with lymph node biopsy. Past Anesthesia/Blood Transfusion Reactions: Motion Sickness, Postoperative Nausea & Vomiting (PONV) Additional Past Anesthesia/Blood Transfusion Reaction / Comm: blood transfusion- no reaction Past Psychological History: No Psychological Hx Reported Additional Psychological History / Comment(s): . Smoking Status: Never smoker Past Alcohol Use History: None Reported Past Drug Use History: None Reported - Past Family History Father Family Medical History: No Reported History Additional Family Medical History / Comment(s): . Mother Additional Family Medical History / Comment(s): Anemia Medications and Allergies Home Medications Medication Instructions Recorded Confirmed Type Alendronate Sodium [Fosamax] 70 mg PO WEEKLY 12/20/22 12/20/22 History Baclofen 10 mg PO HS 12/20/22 12/20/22 History Allergies Allergy/AdvReac Type Severity Reaction Status Date / Time aspirin Allergy Anaphylaxis Verified 12/20/22 15:20 codeine Allergy Anaphylaxis Verified 12/20/22 15:20 shellfish derived [Shellfish] Allergy Anaphylaxis Verified 12/20/22 15:20 Surgical - Exam Vital Signs Temp Pulse Resp BP Pulse Ox 97.4 F L 63 20 145/76 98 12/20/22 12:55 12/20/22 12:55 12/20/22 12:55 12/20/22 12:55 12/20/22 12:55 Results - Labs 12/20/22 13:24 12/20/22 13:24 Abnormal Lab Results - Last 24 Hours (Table) 12/20/22 12/20/22 12/20/22 Range/Units 13:24 14:38 19:10 Lymphocytes # 0.9 L (1.0-4.8) k/uL D-Dimer 0.68 H (<0.60) mg/L FEU Ur Specific Xenia >1.050 H (1.001-1.035) Urine Ketones 1+ H (Negative) Urine Blood Small H (Negative) Urine Nitrite Positive H (Negative) Ur Leukocyte Esterase Small H (Negative) Urine WBC 7 H (0-5) /hpf Urine Mucus Occasional H (None) /hpf Diabetes panel 12/20/22 Range/Units 13:24 Sodium 141 (137-145) mmol/L Potassium 4.3 (3.5-5.1) mmol/L Chloride 105 (98-107) mmol/L Carbon Dioxide 27 (22-30) mmol/L BUN 10 (7-17) mg/dL Creatinine 0.68 (0.52-1.04) mg/dL Glucose 96 (74-99) mg/dL Calcium 8.9 (8.4-10.2) mg/dL AST 24 (14-36) U/L ALT 19 (4-34) U/L Alkaline Phosphatase 115 (38-126) U/L Total Protein 6.9 (6.3-8.2) g/dL Albumin 3.9 (3.5-5.0) g/dL Calcium panel 12/20/22 Range/Units 13:24 Calcium 8.9 (8.4-10.2) mg/dL Albumin 3.9 (3.5-5.0) g/dL Pituitary panel 12/20/22 Range/Units 13:24 Sodium 141 (137-145) mmol/L Potassium 4.3 (3.5-5.1) mmol/L Chloride 105 (98-107) mmol/L Carbon Dioxide 27 (22-30) mmol/L BUN 10 (7-17) mg/dL Creatinine 0.68 (0.52-1.04) mg/dL Glucose 96 (74-99) mg/dL Calcium 8.9 (8.4-10.2) mg/dL Adrenal panel 12/20/22 Range/Units 13:24 Sodium 141 (137-145) mmol/L Potassium 4.3 (3.5-5.1) mmol/L Chloride 105 (98-107) mmol/L Carbon Dioxide 27 (22-30) mmol/L BUN 10 (7-17) mg/dL Creatinine 0.68 (0.52-1.04) mg/dL Glucose 96 (74-99) mg/dL Calcium 8.9 (8.4-10.2) mg/dL Total Bilirubin 0.9 (0.2-1.3) mg/dL AST 24 (14-36) U/L ALT 19 (4-34) U/L Alkaline Phosphatase 115 (38-126) U/L Total Protein 6.9 (6.3-8.2) g/dL Albumin 3.9 (3.5-5.0) g/dL
[2022-12-22 02:33] VITALS: RESP 16
[2022-12-22 06:20] LABS: Basophils % (A) 0 %; Eosinophils # (A) 0.1 k/uL (0-0.7); Eosinophils % (A) 2 %; HCT 37.5 % (34.0-46.0); HGB 11.6 gm/dL (11.4-16.0); Lymphocytes # (A) 1.6 k/uL (1.0-4.8); Lymphocytes % (A) 29 %; MCV 93.7 fL (80.0-100.0); Mean Platelet Volume 8.8; Monocytes # (A) 0.3 k/uL (0-1.0); Monocytes % (A) 5 %; Neutrophils # (A) 3.6 k/uL (1.3-7.7); Neutrophils % (A) 63 %; Platelet Count 177 k/uL (150-450); WBC 5.7 k/uL (3.8-10.6)
[2022-12-22 06:33] LABS: African American GFR (CKD) >90 (>60 ml/min/1.73 sqM); Anion Gap 5 mmol/L; Blood Urea Nitrogen 23 mg/dL (7-17); Calcium 8.5 mg/dL (8.4-10.2); Carbon Dioxide 27 mmol/L (22-30); Chloride 108 mmol/L (98-107); Glucose 84 mg/dL (74-99); Non-African American GFR(CKD) >90 (>60 ml/min/1.73 sqM); Potassium 4.5 mmol/L (3.5-5.1); Sodium 140 mmol/L (137-145)
[2022-12-22] MEDS: FAMOTIDINE 20 MG TAB PO SCH (09:59)
[2022-12-22] MEDS ORDERED: PROPOFOL 10 MG/ML 20 ML VIAL IV ONE (11:56)
[2022-12-22] MEDS ORDERED: SODIUM CHLORIDE 0.9% 500 ML 500 ML IV ONE (12:00)
--- NOTE | 2022-12-22 12:10 | P.OP ---
Date of Procedure: 12/22/22 Preoperative Diagnosis: Paraesophageal hiatal hernia Postoperative Diagnosis: Large paraesophageal hiatal hernia Antral ulceration Procedure(s) Performed: EGD Anesthesia: MAC Surgeon: Jonatan Larkin Pathology: other (Antrum) Condition: stable Disposition: PACU Description of Procedure: The patient's placed on the endoscopy table in the lateral position. She received IV sedation. The gastro-/oropharynx passed in the esophagus and stomach. Scope was placed through the pylorus. The first second portion duodenum appeared normal. Scope summer back the antrum there is evidence of ulceration. This area was biopsied. Scope was retroflexed patient had a large paraesophageal hiatal hernia. The GE junction was at 37 cm. The distal esophagus appeared normal. The proximal esophagus appeared normal. Scope withdrawn for patient.
[2022-12-22 13:44] VITALS: TEMP 98.1
[2022-12-22 15:59] VITALS: BP 135/72; PULSE 67
--- NOTE | 2022-12-23 23:53 | P.DS ---
Providers Date of admission: 12/20/22 19:50 Attending physician: Flora Stevens Consults: 12/21/22 09:59 Consult Physician Routine Consulting Provider: Jonatan Larkin Consult Reason/Comments: abnormal CT/large hiatal hernia Do you want consulting provider notified?: Yes Primary care physician: Stated None Hospital Course: Final Diagnosis -abdominal pain and back pain this is mostly due to the large paraesophageal hiatal hernia -Antral ulceration -Ruled out pulmonary embolism -Gastroesophageal reflux disease -history left breast cancer with lumpectomy -History iron deficiency anemia Full Code Discharge Disposition Patient is stable for discharge home. Continue on omeprazole 20 mg twice a day, patient is provided information regarding diet for gerd and gastritis. Patient to follow up with Dr. Larkin in the office in 1 week to schedule surgery for the hiatal hernia. Follow up with PCP in 1 to 2 days. Hospital Course Patient is a pleasant 62-year-old female came in with compensative lumbar back pain radiating to the front of the abdomen on the left side along with left upper quadrant abdominal pain. The pain started after lifting a object of 25 pounds. Patient denied any other chest pain troponins are negative EKG did not show any acute ST-T wave changes. Chest x-ray was within normal limits patient had minimally elevated d-dimer because of which CT angio the chest was obtained which did not show any pulmonary embolism but showed hiatal hernia with anti- stomach being in the chest. Patient pain is moderate to severe anywhere between 7-10 controlled with pain medications. Lumbar spinal x-ray and abdominal x-ray did not show any significant abnormality. Patient denied any nausea vomiting. Patient was admitted to the hospital with General surgery consultation. Patient underwent EGD which reveals large paraesophageal hiatal hernia and antral ulceration with biopsies taken. Patients blood work is essentially unremarkable, no white count, normal hemoglobin, normal kidney function and normal electrolytes. No signs of GI bleeding and epigastric/abdominal pain had improved. Patient did have abnormal urinalysis on admission and has denied any symptoms of dysuria. Patient is cleared for discharge home. Denies chest pain, denies shortness of breath. Lungs are clear, S1 S2 auscultated, abdomen is soft and nontender, focal neurological exam is negative. Please see medication reconciliation for a list of current medication. Thank you for allowing us to participate in the care of this patient. The impression and plan of care has been dictated by Kiara Sewell Nurse Practitioner as directed. Dr. Moiz MD I have performed a history and physical examination and medical decision making of this patient, discussed the same with the dictator, and agree with the dictators assessment and plan as written, documented as a scribe. Based on total visit time, I have performed more than 50% of this visit. Patient Condition at Discharge: Good Plan - Discharge Summary Discharge Rx Participant: No New Discharge Prescriptions: New Omeprazole [PriLOSEC] 20 mg PO AC-BID #60 cap Continue Alendronate Sodium [Fosamax] 70 mg PO WEEKLY Baclofen 10 mg PO HS Discharge Medication List Alendronate Sodium [Fosamax] 70 mg PO WEEKLY 12/20/22 [History] Baclofen 10 mg PO HS 12/20/22 [History] Omeprazole [PriLOSEC] 20 mg PO AC-BID #60 cap 12/22/22 [Rx] Follow up Appointment(s)/Referral(s): Rafael Hathaway MD [Family Provider] - 1-2 days Jonatan Larkin MD [STAFF PHYSICIAN] - 01/05/23 2:00 pm Patient Instructions/Handouts: Hiatal Hernia (DC), Diet for Stomach Ulcers and Gastritis (ED) Activity/Diet/Wound Care/Special Instructions: Follow up with Dr Larkin in 1 week to schedule hiatal hernia surgery Follow up with your PCP in 1 to 2 days Continue on omeprazole 20 mg twice a day Follow diet for gastritis and GERD Discharge Disposition: HOME SELF-CARE
== END 2022-12-22 16:01 | disposition home or self-care (01) ==
LOC: EC 12:01 → 6NMEDSUR 19:50
PROVIDERS: ADMIT Hospitalist; ATTEND Hospitalist
DX: K44.9 Diaphragmatic hernia without obstruction or gangrene (principal); K25.9 Gastric ulcer, unspecified as acute or chronic, without hemorrhage or perforation; K21.9 Gastro-esophageal reflux disease without esophagitis; D50.9 Iron deficiency anemia, unspecified; G56.01 Carpal tunnel syndrome, right upper limb; J44.9 Chronic obstructive pulmonary disease, unspecified; I51.7 Cardiomegaly; I27.21 Secondary pulmonary arterial hypertension; R79.89 Other specified abnormal findings of blood chemistry; M54.50 Low back pain, unspecified; E66.9 Obesity, unspecified; Z68.34 Body mass index [BMI] 34.0-34.9, adult; Z79.83 Long term (current) use of bisphosphonates; Z79.899 Other long term (current) drug therapy; Z88.6 Allergy status to analgesic agent; Z88.5 Allergy status to narcotic agent; Z91.013 Allergy to seafood; Z85.3 Personal history of malignant neoplasm of breast; Z90.710 Acquired absence of both cervix and uterus; Z98.891 History of uterine scar from previous surgery; Z98.890 Other specified postprocedural states; X50.9XXA Other and unspecified overexertion or strenuous movements or postures, initial encounter; Z83.2 Family history of diseases of the blood and blood-forming organs and certain disorders involving the immune mechanism
CPT/HCPCS: 96376; 96365; 96366; 96375; 99285; 36415; 93005; 85379; 80053; 80048; 84484 ×2; 85025 ×2; 81001; 72100; 71046; 74018; 71275; 43239; G0378 ×3; J1200; J2930; J2916; J1170; J1885 ×2; J2704; Q9967; 88305; 88342

== ENCOUNTER → 2023-01-17 | Outpatient (CLI) | payer BC ==
[2023-01-17 16:34] LABS: Basophils # (A) 0.06 X 10*3/uL (0.00-0.10); Basophils % (A) 1.1 %; Eosinophils # (A) 0.49 X 10*3/uL (0.04-0.35); Eosinophils % (A) 9.2 %; HCT 42.1 % (37.2-46.3); HGB 12.6 d/dL (12.0-15.0); Lymphocytes # (A) 1.39 X 10*3/uL (0.90-5.00); Lymphocytes % (A) 26.1 %; MCH 29.3 pg (27.0-32.0); MCHC 29.9 d/dL (32.0-37.0); MCV 97.9 FL (80.0-97.0); Mean Platelet Volume 11.4 FL (9.5-12.2); Monocytes # (A) 0.34 X 10*3/uL (0.20-1.00); Monocytes % (A) 6.4 %; NRBC Per 100 WBC 0 X 10*3/uL (0.00-0.01); Neutrophils # (A) 3.03 X 10*3/uL (1.80-7.70); Platelet Count 195 X 10*3/uL (140-440); RDW 13.2 % (11.5-14.5); WBC 5.32 X 10*3/uL (4.50-10.00)
== END | disposition home or self-care (01) ==
LOC: LABPAT 10:33
PROVIDERS: ATTEND Surgery
DX: Z01.812 Encounter for preprocedural laboratory examination (principal); K21.00 Gastro-esophageal reflux disease with esophagitis, without bleeding
CPT/HCPCS: 85025; 93005

== ENCOUNTER 2023-01-18 08:13 | Day surgery (SDC) | payer BC ==
[~2023-01-18 08:13] MED LIST changes: +ACETAMINOPHEN TAB 500 MG TAB PO PRN; -DEXAMETHASONE SOD PHOSPHATE 10 MG/ML 1 ML VIAL IV ONE; +DEXAMETHASONE SOD PHOSPHATE 4 MG/ML 1 ML VIAL IV ONE; -HEPARIN SODIUM,PORCINE 5,000 UNIT/ML 1 ML VIAL SQ ONE; +HEPARIN SODIUM,PORCINE/PF 5,000 UNIT/0.5 ML SYRINGE SQ PRN; +HYDROmorphone 0.5 MG/0.5 ML SYRINGE IVP PRN; -LACTATED RINGERS 1,000 ML IV SCH; +LIDOCAINE 1% (10MG/ML) FOR IV START INTRADERMA PRN; -Pre Op ABX Message 1 EACH MISC MISCELLANE ONE
[2023-01-18] MEDS: LACTATED RINGERS 1,000 ML IV SCH (08:53)
[2023-01-18] MEDS ORDERED: NEOSTIGMINE 1 MG/ML 10 ML VIAL ONE (09:41)
[2023-01-18] MEDS ORDERED: KETOROLAC 15 MG/ML 1 ML VIAL ONE (09:41)
[2023-01-18] MEDS ORDERED: fentaNYL (PF) 50 MCG/ML 2 ML AMP ONE (09:41)
[2023-01-18] MEDS ORDERED: ROCURONIUM 10 MG/ML (5 ML VIAL) IV ONE (09:41)
[2023-01-18] MEDS ORDERED: PROPOFOL 10 MG/ML 20 ML VIAL IV ONE (09:41)
[2023-01-18] MEDS ORDERED: LIDOCAINE 2% INJ 20 MG/ML (2 ML VIAL) ONE (09:41)
[2023-01-18] MEDS ORDERED: MIDAZOLAM 2 MG/2 ML VIAL ONE (09:41)
[2023-01-18] MEDS ORDERED: SUCCINYLCHOLINE CHLORIDE 200 MG/10 ML VIAL IV ONE (09:41)
[2023-01-18] MEDS ORDERED: GLYCOPYRROLATE 0.2 MG/ML 2 ML VIAL ONE (09:41)
[2023-01-18] MEDS ORDERED: HYDROmorphone (PF) 1 MG/ML ONE (09:41)
[2023-01-18] MEDS ORDERED: BUPIVACAINE (PF) 0.25% 30 ML VIAL SQ ONE (10:15)
[2023-01-18] MEDS ORDERED: ONDANSETRON 4 MG/2 ML VIAL IVP ONE (11:50)
[2023-01-18] MEDS ORDERED: HYDROmorphone 1 MG/ML 1 ML SYRINGE IVP PRN (11:53)
--- NOTE | 2023-01-18 12:00 | P.OP ---
Date of Procedure: 01/18/23 Preoperative Diagnosis: GERD Hiatal hernia Postoperative Diagnosis: GERD Large paraesophageal hiatal hernia Procedure(s) Performed: Laparoscopic repair of paraesophageal hiatal hernia with mesh Anesthesia: RISHI Surgeon: Jonatan Larkin Estimated Blood Loss (ml): 5 Pathology: none sent Condition: stable Disposition: PACU Description of Procedure: The patient was placed on the operating table in the supine position. The patient received general anesthesia. And was placed in dorsal lithotomy position. The patient was prepped and draped in the usual sterile fashion. The skin incision sites were anesthetized with 1% local Xylocaine. The skin was incised in the left periumbilical area and then using a blade less 5 mm trocar under direct visualization panel cavity was entered. After adequate insufflation the laparoscope was then placed into the peritoneal cavity. Next a 5 mm trochars placed in the right epigastric position. Another 5 millimeter trocar the right lateral position. Another 5 millimeter trocar in the left lateral position a 5 mm trocar is placed in the left epigastric position. And then the initial 5 mm trocar was exchanged for a 10 mm trocar. The left lateral lobe liver was retracted. The hernia was seen. The patient had a large paraesophageal hiatal hernia. Approximately one half of the stomach was in the chest. Using the Harmonic scissors the hernia sac was dissected free and then the stomach was reduced back into the peritoneal cavity. Care was taken to identify and preserve the stomach wall. A good length of esophagus was dissected and brought into the peritoneal cavity. The britany was then repaired using 2-0 Ethibond suture. After the crural repair a piece of [employer] a mesh was placed on top of the britany and secured with 2-0 Ethibond suture. A 58-Amharic bougie dilator was placed into the esophagus prior to cru ral repair. There is no bleeding seen. The dilator was withdrawn. The abdomen was areas no bleeding seen. And then the trochars withdrawn. The skin was closed interrupted 3-0 Monocryl suture. Dermabond was applied. Patient top she will was sent to recovery room in stable condition.
[2023-01-18] MEDS ORDERED: LACTATED RINGERS 1,000 ML IV ONE (12:12)
[2023-01-18] MEDS: METOCLOPRAMIDE 5 MG/ML 2 ML VIAL IVP SCH ×2 (14:08→16:58)
[2023-01-18] MEDS: D5-0.45% NACL WITH KCL 20MEQ/L 1,000 ML IV SCH ×2 (14:08→20:33)
[2023-01-18 14:37] VITALS: BMI 34.7
[2023-01-18] MEDS: traMADol 50 MG TAB PO PRN (17:07)
[2023-01-18] MEDS: PANTOPRAZOLE 40 MG/10 ML VIAL IVP SCH (20:33)
[2023-01-19] MEDS: METOCLOPRAMIDE 5 MG/ML 2 ML VIAL IVP SCH ×4 (00:39→18:21)
[2023-01-19] MEDS: traMADol 50 MG TAB PO PRN ×3 (00:45→18:21)
[2023-01-19] MEDS: D5-0.45% NACL WITH KCL 20MEQ/L 1,000 ML IV SCH ×2 (05:09→15:01)
[2023-01-19 07:17] LABS: Basophils % (A) 0 %; Eosinophils % (A) 1 %; HCT 37.1 % (34.0-46.0); Lymphocytes # (A) 0.7 k/uL (1.0-4.8); Lymphocytes % (A) 9 %; MCH 30.4 pg (25.0-35.0); MCHC 32.5 g/dL (31.0-37.0); MCV 93.7 fL (80.0-100.0); Mean Platelet Volume 8.5; Monocytes # (A) 0.4 k/uL (0-1.0); Monocytes % (A) 5 %; Neutrophils # (A) 6.6 k/uL (1.3-7.7); Neutrophils % (A) 84 %; Platelet Count 167 k/uL (150-450); RBC 3.96 m/uL (3.80-5.40); WBC 7.9 k/uL (3.8-10.6)
[2023-01-19 07:48] LABS: African American GFR (CKD) >90 (>60 ml/min/1.73 sqM); Anion Gap 5 mmol/L; Blood Urea Nitrogen 13 mg/dL (7-17); Calcium 8.6 mg/dL (8.4-10.2); Carbon Dioxide 25 mmol/L (22-30); Chloride 104 mmol/L (98-107); Glucose 138 mg/dL (74-99); Non-African American GFR(CKD) >90 (>60 ml/min/1.73 sqM); Potassium 4.4 mmol/L (3.5-5.1); Sodium 134 mmol/L (137-145)
[2023-01-19] MEDS ORDERED: HYDROcodone/APAP 5-325MG 1 EACH TAB PO PRN (08:07)
[2023-01-19] MEDS: PANTOPRAZOLE 40 MG/10 ML VIAL IVP SCH ×2 (09:05→21:41)
--- NOTE | 2023-01-19 13:00 | P.PN ---
Subjective Progress Note Date: 01/19/23 CHIEF COMPLAINT: GERD HISTORY OF PRESENT ILLNESS: Patient postop day #1 status post laparoscopic repair of paraesophageal hiatal hernia with mesh. Patient complains of pain in the chest and shoulders that did improve with flatus. Nausea has improved. However she still complaining of some shoulder discomfort from gas pains. Afebrile. She is tolerating em clear liquids. PHYSICAL EXAM: VITAL SIGNS: Reviewed. GENERAL: Well-developed in no acute distress. HEENT: No sclera icterus. Extraocular movements grossly intact. Moist buccal mucosa. Head is atraumatic, normocephalic. ABDOMEN: Soft. Nondistended. NEUROLOGIC: Alert and oriented. Cranial nerves II through XII grossly intact. ASSESSMENT: 1. GERD and large paraesophageal hiatal hernia status post Laparoscopic repair of paraesophageal hiatal hernia with mesh PLAN: -Anticipate discharge tomorrow -Continue Em clear liquid diet -Continue pain management -Continue IV fluids -Encouraged patient to ambulate -Encouraged patient to use incentive spirometer -GI prophylaxis Protonix and DVT prophylaxis subcu heparin Physician Environmental Science Technician note has been reviewed by physician. Signing provider agrees with the documented findings, assessment, and plan of care. Objective - Vital Signs Vital signs: Vital Signs Temp 98.4 F 01/19/23 08:00 Pulse 75 01/19/23 08:00 Resp 18 01/19/23 08:00 BP 114/68 01/19/23 08:00 Pulse Ox 92 L 01/19/23 09:52 FiO2 21 01/19/23 09:52 Intake & Output 01/18/23 01/19/23 01/19/23 18:59 06:59 18:59 Intake Total 1250 200 Output Total 5 Balance 1245 200 Weight 91.9 kg Intake: IV 1250 Oral 200 Output: Estimated Blood Loss 5 Other: Voiding Method Toilet # Voids 1 2 - Labs CBC & Chem 7: 01/19/23 06:49 01/19/23 06:49 Labs: Abnormal Lab Results - Last 24 Hours (Table) 01/19/23 01/19/23 Range/Units 06:49 06:49 Lymphocytes # 0.7 L (1.0-4.8) k/uL Sodium 134 L (137-145) mmol/L Glucose 138 H (74-99) mg/dL
[2023-01-19] MEDS: LACTATED RINGERS 1,000 ML IV SCH (13:23)
--- NOTE | 2023-01-19 13:43 | P.CONS ---
History of Present Illness - Reason for Consult Consult date: 01/19/23 Medical management - History of Present Illness History of present illness; patient is a 62-year-old lady with past medical significant for GERD who recently underwent EGD for her severe GERD was found to have large paraesophageal hiatal hernia. Patient was on maximum medical treatment but her symptoms were worsening so it was decided that patient would undergo surgical intervention. Postoperatively the medicine team was consulted REVIEW OF SYSTEMS: CONSTITUTIONAL: No fever, no malaise, no fatigue. HEENT: No recent visual problems or hearing problems. Denied any sore throat. CARDIOVASCULAR: No chest pain, orthopnea, PND, no palpitations, no syncope. PULMONARY: No shortness of breath, no cough, no hemoptysis. GASTROINTESTINAL: No diarrhea, no nausea, no vomiting, no abdominal pain. NEUROLOGICAL: No headaches, no weakness, no numbness. HEMATOLOGICAL: Denies any bleeding or petechiae. GENITOURINARY: Denies any burning micturition, frequency, or urgency. MUSCULOSKELETAL/RHEUMATOLOGICAL: Denies any joint pain, swelling, or any muscle pain. ENDOCRINE: Denies any polyuria or polydipsia. The rest of the 14-point review of systems is negative. PHYSICAL EXAMINATION: GENERAL: The patient is alert and oriented x3, not in any acute distress. Well developed, well nourished. HEENT: Pupils are round and equally reacting to light. EOMI. No scleral icterus. No conjunctival pallor. Normocephalic, atraumatic. No pharyngeal erythema. No thyromegaly. CARDIOVASCULAR: S1 and S2 present. No murmurs, rubs, or gallops. PULMONARY: Chest is clear to auscultation, no wheezing or crackles. ABDOMEN: Soft, nontender, nondistended, normoactive bowel sounds. No palpable organomegaly. MUSCULOSKELETAL: No joint swelling or deformity. EXTREMITIES: No cyanosis, clubbing, or pedal edema. NEUROLOGICAL: Gross neurological examination did not reveal any focal deficits. SKIN: No rashes. Assessment and plan Large paraesophageal hiatal hernia status post laparoscopic repair with mesh GERD Monitor vital signs Monitor CBC Monitor CMP Continue telemetry monitoring Continue pain management per surgery Advance diet per surgery Continue IV fluids Labs and medication were reviewed.. Continue same treatment. Continue with symptomatic treatment. Resume home medication. Monitor labs and vitals. DVT and GI prophylaxis. Further recommendations as per clinical course of the patient Past Medical History Past Medical History: Cancer, GERD/Reflux Additional Past Medical History / Comment(s): recent admission for severe lower back pain to [facility], Light headed occasionally, hiatal hernia, R carpal tu nnel syndrome, back pain., left breast cancer 2019-radiation txs no chemo-follow w/ Dr Hathaway, anemia-receives iron infusions, abdominal pain. History of Any Multi-Drug Resistant Organisms: None Reported Past Surgical History: Section, Hysterectomy Additional Past Surgical History / Comment(s): x 3, cervical lymph node excision, EGD, L carpal tunnel release, lt breast lumpectomy with lymph node biopsy. Past Anesthesia/Blood Transfusion Reactions: Motion Sickness, Postoperative Nausea & Vomiting (PONV) Additional Past Anesthesia/Blood Transfusion Reaction / Comm: blood transfusion- no reaction, anesthesia hard to wake up Past Psychological History: No Psychological Hx Reported Smoking Status: Never smoker Past Alcohol Use History: None Reported Past Drug Use History: None Reported - Past Family History Father Family Medical History: No Reported History Additional Family Medical History / Comment(s): . Mother Additional Family Medical History / Comment(s): Anemia Brother(s) Family Medical History: Cancer Additional Family Medical History / Comment(s): colon Medications and Allergies Home Medications Medication Instructions Recorded Confirmed Type Alendronate Sodium [Fosamax] 70 mg PO WEEKLY 12/20/22 01/18/23 History Omeprazole [PriLOSEC] 20 mg PO AC-BID #60 cap 12/22/22 01/18/23 Rx Allergies Allergy/AdvReac Type Severity Reaction Status Date / Time aspirin Allergy Anaphylaxis Verified 01/18/23 08:36 codeine Allergy Anaphylaxis Verified 01/18/23 08:36 shellfish derived [Shellfish] Allergy Anaphylaxis Verified 01/18/23 08:36 Physical Exam Vitals: Vital Signs Temp Pulse Resp BP Pulse Ox FiO2 01/19/23 09:52 92 L 21 01/19/23 08:00 98.4 F 75 18 114/68 92 L 01/19/23 02:00 98.2 F 61 16 124/71 98 01/18/23 19:35 97.8 F 63 18 140/66 98 01/18/23 16:04 65 125/77 97 01/18/23 16:01 95 01/18/23 15:49 61 119/74 97 01/18/23 15:34 61 126/75 94 L 01/18/23 15:19 73 118/76 95 01/18/23 15:04 59 L 127/74 95 01/18/23 14:49 73 126/74 94 L 01/18/23 14:34 65 124/77 95 01/18/23 14:19 70 126/77 94 L 01/18/23 14:04 97.7 F 67 129/73 95 01/18/23 13:30 72 14 145/68 95 01/18/23 13:15 77 12 149/70 96 01/18/23 13:00 73 16 147/70 94 L 01/18/23 12:45 74 16 141/62 95 01/18/23 12:30 71 16 143/67 96 01/18/23 12:15 72 14 142/70 97 01/18/23 12:00 73 12 140/72 95 01/18/23 11:44 74 14 145/72 96 01/18/23 11:29 75 16 148/68 98 01/18/23 11:14 96.8 F L 78 16 163/74 97 Intake and Output 01/18/23 01/19/23 01/19/23 22:59 06:59 14:59 Intake Total 200 Balance 200 Intake: Oral 200 Other: Voiding Method Toilet # Voids 1 2 Results CBC & Chem 7: 01/19/23 06:49 01/19/23 06:49 Labs: Abnormal Lab Results - Last 24 Hours (Table) 01/19/23 01/19/23 Range/Units 06:49 06:49 Lymphocytes # 0.7 L (1.0-4.8) k/uL Sodium 134 L (137-145) mmol/L Glucose 138 H (74-99) mg/dL
[2023-01-19] MEDS: HEPARIN SODIUM,PORCINE/PF 5,000 UNIT/0.5 ML SYRINGE SQ SCH (21:42)
[2023-01-20] MEDS: METOCLOPRAMIDE 5 MG/ML 2 ML VIAL IVP SCH ×3 (00:30→12:09)
[2023-01-20] MEDS: D5-0.45% NACL WITH KCL 20MEQ/L 1,000 ML IV SCH ×3 (00:30→10:35)
[2023-01-20] MEDS: LACTATED RINGERS 1,000 ML IV SCH (00:31)
[2023-01-20] MEDS: traMADol 50 MG TAB PO PRN (02:01)
[2023-01-20 02:23] VITALS: TEMP 98.1
[2023-01-20 07:33] VITALS: BP 138/76; PULSE 72; RESP 18
[2023-01-20] MEDS: HEPARIN SODIUM,PORCINE/PF 5,000 UNIT/0.5 ML SYRINGE SQ SCH (09:56)
[2023-01-20] MEDS: PANTOPRAZOLE 40 MG/10 ML VIAL IVP SCH (09:56)
--- NOTE | 2023-01-20 12:35 | P.DS ---
Providers Expected date of discharge: 01/20/23 Attending physician: Jonatan Larkin Consults: 01/18/23 11:55 Consult Physician Routine Consulting Provider: Flora Stevens Consult Reason/Comments: Medical management Do you want consulting provider notified?: Yes Primary care physician: Rafael Hathaway Hospital Course: Discharge diagnosis 1. GERD and large paraesophageal hiatal hernia status post Laparoscopic repair of paraesophageal hiatal hernia with mesh Hospital course This 62-year-old female with GERD and large paraesophageal hiatal hernia she is status post laparoscopic repair with mesh. She tolerated surgery well. Pain control. She is tolerating diet. She is having flatus. She has been up and ambulate. She's afebrile. She is stable for discharge. Please refer to chart for further details. Physician Airport Traffic Controller note has been reviewed by physician. Signing provider agrees with the documented findings, assessment, and plan of care. Patient Condition at Discharge: Stable Plan - Discharge Summary Discharge Rx Participant: Yes New Discharge Prescriptions: New traMADol HCl [Ultram] 50 mg PO Q6HR PRN 3 Days #12 tab PRN Reason: Pain Continue Omeprazole [PriLOSEC] 20 mg PO AC-BID #60 cap Alendronate Sodium [Fosamax] 70 mg PO WEEKLY Discharge Medication List Alendronate Sodium [Fosamax] 70 mg PO WEEKLY 12/20/22 [History] Omeprazole [PriLOSEC] 20 mg PO AC-BID #60 cap 12/22/22 [Rx] traMADol HCl [Ultram] 50 mg PO Q6HR PRN 3 Days #12 tab 01/20/23 [Rx] Follow up Appointment(s)/Referral(s): Jonatan Larkin MD [STAFF PHYSICIAN] - 1 Week Activity/Diet/Wound Care/Special Instructions: No driving while taking Ultram No lifting over 10 pounds Shower daily. No soaking or tub baths for 2 weeks Very light activity until you are reevaluated at your follow up appointment with your surgeon Discharge Disposition: HOME SELF-CARE
--- NOTE | 2023-01-20 13:08 | P.PN ---
Subjective Progress Note Date: 01/20/23 patient is a 62-year-old lady with past medical significant for GERD who recently underwent EGD for her severe GERD was found to have large paraesophageal hiatal hernia. Patient was on maximum medical treatment but her symptoms were worsening so it was decided that patient would undergo surgical intervention. Postoperatively the medicine team was consulted 01/20. Patient seen and examined. Continues to be on em clear liquid diet. Patient medically stable for discharge REVIEW OF SYSTEMS: CONSTITUTIONAL: No fever, no malaise,. CARDIOVASCULAR: No chest pain, no palpitations, no syncope. PULMONARY: No shortness of breath, no cough, GASTROINTESTINAL: No diarrhea, no nausea, no vomiting, no abdominal pain. NEUROLOGICAL: No headaches, no weakness, PHYSICAL EXAMINATION: GENERAL: The patient is alert and oriented x3, not in any acute distress. Well developed, well nourished. HEENT: Pupils are round and equally reacting to light. EOMI. No scleral icterus. No conjunctival pallor. Normocephalic, atraumatic. No pharyngeal erythema. No thyromegaly. CARDIOVASCULAR: S1 and S2 present. No murmurs, rubs, or gallops. PULMONARY: Chest is clear to auscultation, no wheezing or crackles. ABDOMEN: Soft, nontender, nondistended, normoactive bowel sounds. No palpable organomegaly. Laparoscopic surgical incision seen MUSCULOSKELETAL: No joint swelling or deformity. EXTREMITIES: No cyanosis, clubbing, or pedal edema. NEUROLOGICAL: Gross neurological examination did not reveal any focal deficits. SKIN: No rashes. Assessment and plan Large paraesophageal hiatal hernia status post laparoscopic repair with mesh GERD Monitor vital signs Monitor CBC Monitor CMP Continue pain management per surgery Advance diet per surgery Continue IV fluids Labs and medication were reviewed.. Continue same treatment. Continue with symptomatic treatment. Resume home medication. Monitor labs and vitals. DVT and GI prophylaxis. Further recommendations as per clinical course of the patient Objective - Vital Signs Vital signs: Vital Signs Temp 98.1 F 01/20/23 07:06 Pulse 72 01/20/23 07:06 Resp 18 01/20/23 07:06 BP 138/76 01/20/23 07:06 Pulse Ox 94 L 01/20/23 07:06 FiO2 21 01/19/23 09:52 Intake & Output 01/19/23 01/20/23 01/20/23 18:59 06:59 18:59 Intake Total 200 1200 Balance 200 1200 Intake: Intake, IV Titration 1200 Amount D5-0.45% NaCl with KCl 1200 20Meq/l 1,000 ml @ 125 mls/hr IV .Q8H [facility] Rx#: [id number] Oral 200 Other: Voiding Method Toilet # Voids 3 3 - Labs CBC & Chem 7: 01/19/23 06:49 01/19/23 06:49
== END 2023-01-20 16:01 | disposition home or self-care (01) ==
LOC: OR 08:13 → EDSTATUS 09:25 → 4SSUR 11:08 → OR 01-20 16:01
PROVIDERS: ATTEND Surgery
DX: K21.9 Gastro-esophageal reflux disease without esophagitis (principal); K44.9 Diaphragmatic hernia without obstruction or gangrene; Z88.5 Allergy status to narcotic agent; Z90.710 Acquired absence of both cervix and uterus; Z98.891 History of uterine scar from previous surgery; Z98.890 Other specified postprocedural states; Z79.899 Other long term (current) drug therapy
CPT/HCPCS: 43282; 94760 ×2; 80048; 85025; C1781; J2250; J0330; J1100; J2710; J2765 ×3; J0690 ×3; J2405; J3010; J1170 ×2; J1885; J2704; C9113 ×3; J1644 ×3; J2001

== ENCOUNTER → 2023-05-18 | Outpatient (CLI) | payer BC ==
--- NOTE | 2023-05-18 10:56 | FL ---
EXAMINATION TYPE: FL UGI air w esophagus DATE OF EXAM: 05/18/2023 10:38 AM CLINICAL INDICATION:Female, 62 years old with history of K21.9 GASTRO-ESOPHAGEAL REFLUX DISEASE WITHO UT ESO; COMPARISON: CT chest 12/20/2022 TECHNIQUE: The procedure was explained and patient history elicited. All patient questions were ans wered prior to start of procedure. A insurance investigator radiograph of the abdomen was also reviewed. Multiple flu oroscopic spot images of the esophagus, stomach and duodenum were obtained following ingestion of liq uid barium and EZ-gas crystals. Fluoroscopic time:1 minute 20 seconds Fluoroscopic images: 0 Radiographs taken: 70 DAP: 1892 mGym2 FINDINGS: The esophagus appears unremarkable without evidence of focal stricture, ulceration or abnormal outpou deysi. Few tertiary contractions are seen throughout the distal esophagus with retrograde flow of co ntrast. No evidence of gastroesophageal reflux was seen when the patient was instructed to bear down. The stomach and duodenum demonstrate a post hernia repair morphology with surgical clips present. Th ere is no evidence of focal gastric or duodenal ulceration, stricture, or abnormal outpouching. There is tertiary contractions throughout the esophagus with small hiatal hernia present on prone srinath ging. IMPRESSION: Esophageal dysmotility with small hiatal hernia visualized on oblique prone imaging only.
== END | disposition home or self-care (01) ==
LOC: RADUSWWP 09:51
PROVIDERS: ATTEND Surgery
DX: K22.4 Dyskinesia of esophagus (principal); K44.9 Diaphragmatic hernia without obstruction or gangrene
CPT/HCPCS: 74246

== ENCOUNTER 2023-07-20 14:48 | Emergency (ER) | payer BC ==
[2023-07-20] MEDS ORDERED: methylPREDNISolone SOD SUCCI 125 MG/2 ML VIAL IM ONE (14:56)
[2023-07-20] MEDS ORDERED: KETOROLAC 15 MG/ML 1 ML VIAL IM STA (14:56)
[2023-07-20 15:19] VITALS: BP 128/86; PULSE 78; RESP 16; TEMP 97.8
--- NOTE | 2023-07-20 15:28 | ED ---
Back Pain HPI - General Chief Complaint: Back Pain/Injury Stated Complaint: Lt leg pain Time Seen by Provider: 07/20/23 15:27 Source: patient, RN notes reviewed Limitations: no limitations - History of Present Illness Initial Comments: 63-year-old female presents emergency Department with chief complaint of low back pain, left leg pain. Patient states that she's been having increased pain last several days. States that his been worse denies any bowel, bladder incontinence or retention or saddle anesthesias. States pain rates her left leg is with any movement. Patient denies any falls. - Related Data Home Medications Medication Instructions Recorded Confirmed Omeprazole [PriLOSEC] 20 mg PO DAILY PRN 06/13/23 06/15/23 Previous Rx's Medication Instructions Recorded Cyclobenzaprine [Flexeril] 5 mg PO TID PRN #15 tablet 07/20/23 predniSONE 50 mg PO DAILY #5 tab 07/20/23 traMADol HCl [Ultram] 50 mg PO Q6H PRN #20 tab 07/20/23 Allergies Allergy/AdvReac Type Severity Reaction Status Date / Time aspirin Allergy Anaphylaxis Verified 06/15/23 09:19 codeine Allergy Anaphylaxis Verified 06/15/23 09:19 shellfish derived [Shellfish] Allergy Anaphylaxis Verified 06/15/23 09:19 Review of Systems ROS Statement: Those systems with pertinent positive or pertinent negative responses have been documented in the HPI. ROS Other: All systems not noted in ROS Statement are negative. Past Medical History Past Medical History: Cancer, GERD/Reflux Additional Past Medical History / Comment(s): Frequent heartburn/colonoscopy is for screening, family hx of colon cancer. Severe lower back pain light headed occasionally, hiatal hernia, R carpal tunnel syndrome, left breast cancer 2019- radiation txs no chemo-follow w/ Dr Hathaway, anemia-past iron infusions, History of Any Multi-Drug Resistant Organisms: None Reported Past Surgical History: Section, Hysterectomy Additional Past Surgical History / Comment(s): x 3, cervical lymph node excision, EGD, colonoscopy, L carpal tunnel release, lt breast lumpectomy with lymph node biopsy. Past Anesthesia/Blood Transfusion Reactions: Motion Sickness, Postoperative Nausea & Vomiting (PONV) Additional Past Anesthesia/Blood Transfusion Reaction / Comment(s): blood transfusion- no reaction, anesthesia hard to wake up Past Psychological History: No Psychological Hx Reported Smoking Status: Never smoker - Past Family History Father Family Medical History: No Reported History Additional Family Medical History / Comment(s): . Mother Additional Family Medical History / Comment(s): Anemia Brother(s) Family Medical History: Cancer Additional Family Medical History / Comment(s): colon General Exam Limitations: no limitations General appearance: alert, in no apparent distress Head exam: Present: atraumatic, normocephalic, normal inspection ENT exam: Present: normal exam, normal oropharynx, mucous membranes moist Neck exam: Present: normal inspection, full ROM. Absent: tenderness, meningismus, lymphadenopathy Respiratory exam: Present: normal lung sounds bilaterally. Absent: respiratory distress, wheezes, rales, rhonchi, stridor Cardiovascular Exam: Present: regular rate, normal rhythm, normal heart sounds. Absent: systolic murmur, diastolic murmur, rubs, gallop, clicks GI/Abdominal exam: Present: soft, normal bowel sounds. Absent: distended, tenderness, guarding, rebound, rigid Extremities exam: Present: normal inspection, full ROM, normal capillary refill. Absent: tenderness, pedal edema, joint swelling, calf tenderness Back exam: Present: tenderness, paraspinal tenderness. Absent: full ROM, vertebral tenderness Neurological exam: Present: reflexes normal. Absent: motor sensory deficit Skin exam: Present: warm, dry, intact, normal color. Absent: rash Course Vital Signs 07/20/23 07/20/23 07/20/23 15:12 17:06 17:09 Temperature 97.8 F 97.8 F 97.8 F Pulse Rate 78 78 78 Respiratory 16 16 16 Rate Blood Pressure 128/86 128/86 128/86 O2 Sat by Pulse 98 98 98 Oximetry Medical Decision Making - Medical Decision Making Was pt. sent in by a medical professional or institution (, PA, GATE AGENT, urgent care, hospital, or long-term...) When possible be specific @ -No Did you speak to anyone other than the patient for history (EMS, parent, family, police, friend...)? What history was obtained from this source @ -No Did you review nursing and triage notes (agree or disagree)? Why? @ -I reviewed and agree with nursing and triage notes Were old charts reviewed (outside hosp., previous admission, EMS record, old EKG, old radiological studies, urgent care reports/EKG's, long-term records)? Report findings @ -No old charts were reviewed Differential Diagnosis (chest pain, altered mental status, abdominal pain women, abdominal pain men, vaginal bleeding, weakness, fever, dyspnea, syncope, heada davina, dizziness, GI bleed, back pain, seizure, CVA, palpatations, mental health, musculoskeletal)? @ -Differential Back Pain: Strain, zoster, cauda equina syndrome, epidural abscess, vertebral osteomyelitis, discitis, fracture, subluxation, disc herniation, DJD, spinal stenosis, dissection, AAA, pancreatitis, peptic ulcer disease, pyelonephritis, kidney stone, this is not meant to be an all-inclusive list. EKG interpreted by me (3pts min.). @ -[None X-rays interpreted by me (1pt min.). @ -X-ray lumbar spine shows no significant changes mild degenerative changes noted CT interpreted by me (1pt min.). @ -None done U/S interpreted by me (1pt. min.). @ -None done What testing was considered but not performed or refused? (CT, X-rays, U/S, labs)? Why? @ -None What meds were considered but not given or refused? Why? @ -None Did you discuss the management of the patient with other professionals (professionals i.e. , PA, GATE AGENT, lab, RT, psych nurse, social media editor, analysis intern, teacher, bank secrecy act officer, casework supervisor)? Give summary @ -No Was smoking cessation discussed for >3mins.? @ -No Was critical care preformed (if so, how long)? @ -No Were there social determinants of health that impacted care today? How? (Homele ssness, low income, unemployed, alcoholism, drug addiction, transportation, low edu. Level, literacy, decrease access to med. care, intermediate, rehab)? @ -No Was there de-escalation of care discussed even if they declined (Discuss DNR or withdrawal of care, Hospice)? DNR status @ -No What co-morbidities impacted this encounter? (DM, HTN, Smoking, COPD, CAD, Cancer, CVA, ARF, Chemo, Hep., AIDS, mental health diagnosis, sleep apnea, morbid obesity)? @ -None Was patient admitted / discharged? Hospital course, mention meds given and route, prescriptions, significant lab abnormalities, going to OR and other pertinent info. @ -Discharge patient has lumbar radiculopathy. Patient had x-rays which were essentially unremarkable. Patient provided analgesics discharged in stable condition with no red flag symptoms. Undiagnosed new problem with uncertain prognosis? @ -No Drug Therapy requiring intensive monitoring for toxicity (Heparin, Nitro, Insulin, Cardizem)? @ -No Were any procedures done? @ -No Diagnosis/symptom? @ -[Lumbar radiculopathy. Acute, or Chronic, or Acute on Chronic? @ -Acute Uncomplicated (without systemic symptoms) or Complicated (systemic symptoms)? @ -Uncomplicated Side effects of treatment? @ -No Exacerbation, Progression, or Severe Exacerbation? @ -No Poses a threat to life or bodily function? How? (Chest pain, [place], [place], pneumonia, PE, COPD, DKA, ARF, appy, cholecystitis, CVA, Diverticulitis, Homicidal, Suicidal, threat to staff... and all critical care pts) @ -No Disposition Clinical Impression: Lumbar radiculopathy, acute Disposition: HOME SELF-CARE Condition: Stable Instructions (If sedation given, give patient instructions): Acute Low Back Pain (ED) Additional Instructions: Please return to the Emergency Department if symptoms worsen or any other concerns. Prescriptions: Cyclobenzaprine [Flexeril] 5 mg PO TID PRN #15 tablet PRN Reason: Muscle Spasm predniSONE 50 mg PO DAILY #5 tab traMADol HCl [Ultram] 50 mg PO Q6H PRN #20 tab PRN Reason: Pain Is patient prescribed a controlled substance at d/c from ED?: No Referrals: Homar Hathaway MD [Primary Care Provider] - 1-2 days Time of Disposition: 15:59
--- NOTE | 2023-07-20 16:09 | XR ---
EXAMINATION TYPE: XR lumbar spine 2 or 3V DATE OF EXAM: 07/20/2023 3:31 PM CLINICAL INDICATION:Female, 63 years old with history of pain; [facility] COMPARISON: X-ray 12/21/2022 TECHNIQUE: XR lumbar spine 2 or 3V - FINDINGS: No evidence of any acute osseous pathology. No evidence of loss of vertebral body height i s seen. There is normal AP alignment of the lumbar vertebral bodies. Mild multilevel disc degeneratio n changes throughout the spine, greatest L4-5 and L5-S1. Facet disease also greatest at L5-S1. Mild l evocurvature of the mid to lower lumbar spine. Overall appearance is similar to prior. IMPRESSION: 1. No radiographic evidence of acute compression fracture. 2. Mild multilevel disc degeneration.
== END 2023-07-20 17:10 | disposition home or self-care (01) ==
LOC: EC 14:48
DX: M51.16 Intervertebral disc disorders with radiculopathy, lumbar region (principal); K21.9 Gastro-esophageal reflux disease without esophagitis; Z79.899 Other long term (current) drug therapy; Z88.5 Allergy status to narcotic agent; Z91.013 Allergy to seafood; Z88.6 Allergy status to analgesic agent
CPT/HCPCS: 72100; 99283; 96372 ×2; J2930; J1885

== ENCOUNTER 2023-07-31 11:11 | Emergency (ER) | payer BC ==
--- NOTE | 2023-07-31 11:47 | ED ---
Extremity Problem HPI - General Chief complaint: Extremity Problem,Nontraumatic Stated complaint: Lt leg pain Time Seen by Provider: 07/31/23 11:27 Source: patient Mode of arrival: wheelchair Limitations: no limitations - History of Present Illness Initial comments: The patient's a 63 year female is otherwise healthy presents with to the emergency room with complaints of left leg pain. Patient states that it hurt for a few weeks. She denies any falls or injuries. Was seen in the emergency room July 20 with similar pain and was not diagnosed with anything specific. She had some mild degenerative changes at L4-L5 and S1. Patient states the pain is worse in the thigh medially and laterally. She states that the pain worsened yesterday after she was jolted well at work and almost fell. Patient states she had been on a few putting her back in June but denies any history of DVT or PE. She denies any redness or warmth to the leg. She denies any loss of bowel or bladder control. Patient states that the pain increased with sitting. He that he has a difficult time getting up and walking however when she starts walking aid is better. She denies any specific back pain at this time. Denies any fevers or IV drug use. - Related Data Home Medications Medication Instructions Recorded Confirmed Omeprazole [PriLOSEC] 20 mg PO DAILY PRN 06/13/23 06/15/23 Previous Rx's Medication Instructions Recorded Cyclobenzaprine [Flexeril] 5 mg PO TID PRN #15 tablet 07/20/23 predniSONE 50 mg PO DAILY #5 tab 07/20/23 traMADol HCl [Ultram] 50 mg PO Q6H PRN #20 tab 07/20/23 HYDROcodone/APAP 5-325MG [[place] 1 tab PO Q6HR PRN 3 Days #12 tab 07/31/23 5-325] Lidocaine 5% Patch [Lidoderm] 1 patch TOPICAL DAILY #16 patch 07/31/23 Allergies Allergy/AdvReac Type Severity Reaction Status Date / Time aspirin Allergy Anaphylaxis Verified 07/31/23 11:24 codeine Allergy Anaphylaxis Verified 07/31/23 11:24 shellfish derived [Shellfish] Allergy Anaphylaxis Verified 07/31/23 11:24 Review of Systems ROS Statement: Those systems with pertinent positive or pertinent negative responses have been documented in the HPI. ROS Other: All systems not noted in ROS Statement are negative. Past Medical History Past Medical History: Cancer, GERD/Reflux Additional Past Medical History / Comment(s): Frequent heartburn/colonoscopy is for screening, family hx of colon cancer. Severe lower back pain light headed occasionally, hiatal hernia, R carpal tunnel syndrome, left breast cancer 2019- radiation txs no chemo-follow w/ Dr Hathaway, anemia-past iron infusions, History of Any Multi-Drug Resistant Organisms: None Reported Past Surgical History: Section, Hysterectomy Additional Past Surgical History / Comment(s): x 3, cervical lymph node excision, EGD, colonoscopy, L carpal tunnel release, lt breast lumpectomy with lymph node biopsy. Past Anesthesia/Blood Transfusion Reactions: Motion Sickness, Postoperative Nausea & Vomiting (PONV) Additional Past Anesthesia/Blood Transfusion Reaction / Comment(s): blood transfusion- no reaction, anesthesia hard to wake up Past Psychological History: No Psychological Hx Reported Smoking Status: Never smoker - Past Family History Father Family Medical History: No Reported History Additional Family Medical History / Comment(s): . Mother Additional Family Medical History / Comment(s): Anemia Brother(s) Family Medical History: Cancer Additional Family Medical History / Comment(s): colon General Exam Limitations: no limitations General appearance: alert, in no apparent distress Head exam: Present: atraumatic Eye exam: Present: normal appearance, PERRL ENT exam: Present: normal exam Neck exam: Present: full ROM. Absent: tenderness Respiratory exam: Present: normal lung sounds bilaterally Cardiovascular Exam: Present: regular rate, normal rhythm Extremities exam: Present: tenderness (Extremities patient with the medial aspect of the left thigh no deformity no erythema or warmth. No signs of a septic hip or knee. Limited range of motion due to pain. No significant swelling. No peripheral edema). Absent: joint swelling, calf tenderness Back exam: Present: full ROM, other (EHL intact bilaterally). Absent: tenderness Neurological exam: Present: alert, oriented X3, CN II-XII intact Psychiatric exam: Present: normal affect, normal mood Skin exam: Present: warm, dry Course Vital Signs 07/31/23 07/31/23 11:24 14:02 Temperature 98.7 F 98.1 F Pulse Rate 77 72 Respiratory 16 18 Rate Blood Pressure 143/81 149/83 O2 Sat by Pulse 99 98 Oximetry - Reevaluation(s) Reevaluation #1: 07/31/23 13:39 The patient's whelping emergency room. She is not given any pain medication in the emergency room and she is driving. 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 Patient is neurologically intact. EHL intact bilaterally. She denies any saddle anesthesia or loss of bowel or bladder control thereforeno MRI was ordered at today's visit. I did discussed management including ice heat and stretching. She was given multiple stretches to help with the leg pain and suspected sciatica. I discussed following up with gis specialist for follow-up evaluation further management. Patient will be given a few tablets of [place] that she may take when she is at home and not driving or working. Medical Decision Making - Medical Decision Making Was pt. sent in by a medical professional or institution (, PA, SALES EXECUTIVE INSURANCE, urgent care, hospital, or detention...) When possible be specific @ -[No] Did you speak to anyone other than the patient for history (EMS, parent, family, police, friend...)? What history was obtained from this source @ -[No] Did you review nursing and triage notes (agree or disagree)? Why? @ -[I reviewed and agree with nursing and triage notes] Were old charts reviewed (outside hosp., previous admission, EMS record, old EKG, old radiological studies, urgent care reports/EKG's, detention records)? Report findings @ -[yes old charts were reviewed] Differential Diagnosis (chest pain, altered mental status, abdominal pain women, abdominal pain men, vaginal bleeding, weakness, fever, dyspnea, syncope, headache, dizziness, GI bleed, back pain, seizure, CVA, palpatations, mental health, musculoskeletal)? @ -Sciatica, muscle strain, muscle cramps, osteoarthritis of the hip and knee joint EKG interpreted by me (3pts min.). @ -[As above] X-rays interpreted by me (1pt min.). @ -X-ray of the femur is negative for any mass lesion or other acute changes however does show severe arthritis of the knee and hip joints. CT interpreted by me (1pt min.). @ -[None done] U/S interpreted by me (1pt. min.). @ -Ultrasound of the left lower extremities negative for DVT. What testing was considered but not performed or refused? (CT, X-rays, U/S, labs)? Why? @ -[None] What meds were considered but not given or refused? Why? @ -[None] Did you discuss the management of the patient with other professionals (professionals i.e. , PA, SALES EXECUTIVE INSURANCE, lab, RT, psych nurse, clinical social work aide, couture alterations dressmaker, teacher, chairman president and chief executive officer, outpatient case manager)? Give summary @ -[No] Was smoking cessation discussed for >3mins.? @ -[No] Was critical care preformed (if so, how long)? @ -[No] Were there social determinants of health that impacted care today? How? (Homelessness, low income, unemployed, alcoholism, drug addiction, transportation, low edu. Level, literacy, decrease access to med. care, long term, rehab)? @ -[No] Was there de-escalation of care discussed even if they declined (Discuss DNR or withdrawal of care, Hospice)? DNR status @ -[No] What co-morbidities impacted this encounter? (DM, HTN, Smoking, COPD, CAD, Cancer, CVA, ARF, Chemo, Hep., AIDS, mental health diagnosis, sleep apnea, morbid obesity)? @ -[None] Was patient admitted / discharged? Hospital course, mention meds given and route, prescriptions, significant lab abnormalities, going to OR and other pertinent info. @ Patient is stable to follow up as an outpatient. She was given multiple stretches that she may do to at home to help with the muscle strain and sciatica. This following up with the gis specialist for outpatient MRI and further management. Discussed signs return to the emergency room. She understands agrees to treatment discharge plan. Her symptoms are covenant disposition were discussed with attending ED physician Dr. Huitron today Undiagnosed new problem with uncertain prognosis? @ -[No] Drug Therapy requiring intensive monitoring for toxicity (Heparin, Nitro, Insulin, Cardizem)? @ -[No] Were any procedures done? @ -[No] Diagnosis/symptom? @ -[-like strain, suspected sciatica Acute, or Chronic, or Acute on Chronic? @ -[Acute Uncomplicated (without systemic symptoms) or Complicated (systemic symptoms)? @ -[default] Side effects of treatment? @ -[No] Exacerbation, Progression, or Severe Exacerbation? @ -[No] Poses a threat to life or bodily function? How? (Chest pain, [place], [place], pneumonia, PE, COPD, DKA, ARF, appy, cholecystitis, CVA, Diverticulitis, Homicidal, Suicidal, threat to staff... and all critical care pts) @ -[No] - Radiology Data Radiology results: report reviewed, image reviewed Disposition Clinical Impression: Sciatica, Leg strain Disposition: HOME SELF-CARE Condition: Fair Additional Instructions: DO NOT WORK OR DRIVE WHILE TAKING PAIN MEDICATION WORK ON STRETCHES FOLLOW UP WITH PRINCIPAL EMBEDDED SOFTWARE ENGINEER Prescriptions: Lidocaine 5% Patch [Lidoderm] 1 patch TOPICAL DAILY #16 patch HYDROcodone/APAP 5-325MG [[place] 5-325] 1 tab PO Q6HR PRN 3 Days #12 tab PRN Reason: Pain Is patient prescribed a controlled substance at d/c from ED?: Yes When asked, does pt state using other controlled substances?: No If prescribed controlled substance>3 days was MAPS reviewed?: Prescribed <3 Days If opioid is for acute pain is fill amount 7 days or less?: No Referrals: Homar Hathaway MD [Primary Care Provider] - 1-2 days Ana Laurent DO [Doctor of Osteopathic Medicine] - 1-2 days Time of Disposition: 13:43
--- NOTE | 2023-07-31 12:45 | XR ---
EXAMINATION TYPE: XR femur LT, XR pelvis AP view DATE OF EXAM: 07/31/2023 12:15 PM CLINICAL INDICATION:Female, 63 years old with history of pain; COMPARISON: None TECHNIQUE: XR femur LT, XR pelvis AP view examined in Frontal and lateral projections of the left fem ur and AP view of the pelvis FINDINGS: No evidence of acute osseous pathology, joint dislocation, or soft tissue swelling. Mild o steophyte formations of the superior acetabulum. Mild joint space narrowing. Osteophyte formation of the patella tibial plateau and femoral condyles. There is a fabella present. IMPRESSION: 1. No acute osseous pathology. 2. Mild degeneration changes of the hip. 3. Moderate left knee osteoarthrosis.
--- NOTE | 2023-07-31 12:52 | US ---
EXAMINATION TYPE: US venous doppler duplex LE LT DATE OF EXAM: 07/31/2023 11:42 AM COMPARISON: NONE CLINICAL INDICATION: Female, 63 years old with history of pain; left thigh pain/ cramping x 1 month SIDE PERFORMED: Left TECHNIQUE: The lower extremity deep venous system is examined utilizing real time linear array sonog paola with graded compression, doppler sonography and color-flow sonography. VESSELS IMAGED: Common Femoral Vein Deep Femoral Vein Greater Saphenous Vein * Femoral Vein Popliteal Vein Small Saphenous Vein * Proximal Calf Veins (* superficial vessels) Left Leg: Negative for DVT IMPRESSION: Grayscale, color doppler, spectral doppler imaging performed of the deep veins of the lo wer extremities. There is normal flow, compressibility, vascular waveforms.
[2023-07-31 14:18] VITALS: BP 149/83; PULSE 72; RESP 18; TEMP 98.1
== END 2023-07-31 14:04 | disposition home or self-care (01) ==
LOC: EC 11:11
DX: S76.912A Strain of unspecified muscles, fascia and tendons at thigh level, left thigh, initial encounter (principal); K21.9 Gastro-esophageal reflux disease without esophagitis; Z79.899 Other long term (current) drug therapy; Z88.5 Allergy status to narcotic agent; Z88.6 Allergy status to analgesic agent; Z91.013 Allergy to seafood; W19.XXXA Unspecified fall, initial encounter; Y99.0 Civilian activity done for income or pay
CPT/HCPCS: 72170; 99284

== ENCOUNTER → 2023-08-11 | Outpatient (CLI) | payer BC ==
--- NOTE | 2023-08-11 14:03 | CT ---
EXAMINATION TYPE: CT ChestAbdPelvis w con DATE OF EXAM: 08/11/2023 COMPARISON: 12/20/2022 HISTORY: Breast Cancer, Left hip pain CT DLP: 1777 mGycm CONTRAST: CT scan of the chest, abdomen and pelvis is performed with Oral Contrast and with IV Contrast, patien t injected with 100 ml mL of Isovue 300. CT Chest: LUNGS: The lungs are clear and free of infiltrate or atelectasis. No pulmonary nodule or mass is det ected. No pleural effusion or CT evidence of interstitial lung disease. MEDIASTINUM: Thoracic aorta is of normal caliber. The heart is not enlarged. No evidence for media stinal mass or adenopathy. Fixed hiatal hernia noted. HILAR STRUCTURES: No evidence for mass. No hilar adenopathy is appreciated. OTHER: Left-sided lumpectomy changes noted. CONTRAST CT ABDOMEN AND PELVIS FINDINGS: LIVER/GB: There is evidence of hepatic steatosis. No calcified gallstones. No space occupying hepa tic lesion. Biliary tree is of normal caliber. PANCREAS: No inflammation. No distinct mass. SPLEEN: No splenic enlargement. No lesion seen. ADRENALS: No nodule. No thickening. KIDNEYS/BLADDER: No hydronephrosis. No nephrolithiasis. No disctinct renal mass. BOWEL: Normal appendix. Normal bowel caliber. No inflammation. GENITAL ORGANS: No gross abnormality. LYMPH NODES: No greater than 1cm abdominal or pelvic lymph nodes are appreciated. AORTA: No significant abnormality. OSSEOUS STRUCTURES: Scattered moderate and severe degenerative changes primarily throughout the lumba r spine. OTHER: No significant additional abnormality is seen. IMPRESSION: 1. No CT evidence to suggest metastatic disease.
== END | disposition home or self-care (01) ==
LOC: RADCTMAIN 10:52
PROVIDERS: ATTEND Internal Medicine Hematology & Oncology
DX: C50.212 Malignant neoplasm of upper-inner quadrant of left female breast (principal); M25.552 Pain in left hip
CPT/HCPCS: 71260; 74177; Q9967

== ENCOUNTER → 2023-08-14 | Outpatient (CLI) | payer BC ==
--- NOTE | 2023-08-14 15:51 | NM ---
EXAMINATION TYPE: NM bone scan whole body DATE OF EXAM: 08/14/2023 COMPARISON: CT dated 224 CLINICAL INDICATION: Female, 63 years old with history of C50.212 Breast cancer; Delayed whole-body scanning was performed following the injection of 21.4 mCi Tc 99m MDP. Images acq uired 3 hours post injection. FINDINGS: Abnormal uptake throughout the vertebral column consistent with degenerative disc disease and scolios is. Abnormal uptake involving the left iliac bone is compatible metastases can correlate x-ray findings. Abnormal SI joints compatible with arthropathy. This abnormal uptake involving the posterior largely lower rib at the approximate level of the left e ighth or ninth rib suspicious for metastasis. Correlation with CT findings. Abnormal uptake involving the right 12th rib appears compatible with a previously fractured right CT scan Abnormal uptake involving the knees, ankles and feet likely posterior arthritic or post degenerative. Abnormal uptake involves the symphysis pubis compatible with osteoarthritic changes. IMPRESSION: 1. Large area of bony metastasis involving the left pelvis CT finding. 2. Findings suggestive of left posterior rib cage metastases.
== END | disposition home or self-care (01) ==
LOC: RADNMMAIN 11:03
PROVIDERS: ATTEND Internal Medicine Hematology & Oncology
DX: C79.51 Secondary malignant neoplasm of bone (principal); C50.212 Malignant neoplasm of upper-inner quadrant of left female breast
CPT/HCPCS: 78306; A9503

== ENCOUNTER → 2023-12-20 | Outpatient (CLI) | payer BC ==
--- NOTE | 2023-12-20 15:19 | NM ---
EXAMINATION TYPE: NM bone scan whole body DATE OF EXAM: 12/20/2023 COMPARISON: 08/14/2023 CLINICAL INDICATION: Female, 63 years old with history of C50.212 BREAST CA; Delayed whole-body scanning was performed following the injection of 22.8 mCi Tc 99m MDP. Images acq uired 5 hours post injection. FINDINGS: Abnormal uptake involving the shoulders, left femur, knees, ankles, and feet are stable. Findings are likely post arthritic. Abnormal uptake within the lower cervical, thoracic, and lumbar spine stable. Abnormal uptake involving the rib cage stable. Abnormal uptake involving the left hemipelvis\hip stable. Stable nonspecific uptake involving the calvarium IMPRESSION: 1. Stable bone scan with large area of abnormal uptake involving the left pelvis concordant with CT f indings of metastasis. 2. Stable rib cage abnormal uptake compatible with history of previous bony metastases.
== END | disposition home or self-care (01) ==
LOC: RADNMMAIN 07:32
PROVIDERS: ATTEND Internal Medicine Hematology & Oncology
DX: C79.51 Secondary malignant neoplasm of bone (principal); C50.212 Malignant neoplasm of upper-inner quadrant of left female breast; M85.9 Disorder of bone density and structure, unspecified; D50.9 Iron deficiency anemia, unspecified; Z71.3 Dietary counseling and surveillance
CPT/HCPCS: 78306; A9503

== ENCOUNTER → 2023-12-21 | Outpatient (CLI) | payer BC ==
[2023-12-21 08:21] LABS: African American GFR (CKD) >90 (>60 ml/min/1.73 sqM); Blood Urea Nitrogen 15 mg/dL (7-17); Non-African American GFR(CKD) >90 (>60 ml/min/1.73 sqM)
--- NOTE | 2023-12-21 14:18 | CT ---
EXAMINATION TYPE: CT ChestAbdPelvis w con DATE OF EXAM: 12/21/2023 COMPARISON: 08/11/2023 HISTORY: FOLLOW UP BREAST CA CT DLP: 2152 mGycm Automated exposure control for dose reduction was used. CONTRAST: CT scan of the chest, abdomen and pelvis is performed with Oral Contrast and with IV Contrast, patien t injected with 100 mL of Isovue 300. FINDINGS: EXAMINATION TYPE: CT ChestAbdPelvis w con DATE OF EXAM: 12/21/2023 COMPARISON: HISTORY: FOLLOW UP BREAST CA CT DLP: 2152 mGycm Automated exposure control for dose reduction was used. CONTRAST: CT scan of the chest, abdomen and pelvis is performed with Oral Contrast and with IV Contrast, patien t injected with 100 mL of Isovue 300. FINDINGS: CT chest: There is no suspicious lung mass or nodule. There are a few scattered stable micronodules There is no abnormal airspace/consolidative density or abnormal interstitial density. There is no pleural effusion, pleural thickening or pneumothorax. The great vessels and chest are normal there is no mediastinal, hilar or axillary adenopathy. No focal osseous lesions are seen. There is a stable large hiatal hernia. CT abdomen and pelvis: Gallbladder is normal without distention, pericholecystic fluid, wall thickening or gallstone. There is no biliary ductal dilatation. There is no focal mass or organomegaly involving the liver, pancreas, spleen or adrenal glands.. There is no solid renal mass or hydronephrosis. There is no retroperitoneal adenopathy or hemorrhage in the caliber of the abdominal aorta is normal. The bowel loops are normal in caliber and there is no dilatation or obstruction. No inflammatory cabral ges identified in the bowel wall and mesentery. There is no free intracranial air or fluid. There is no pelvic mass or adenopathy. There is no free fluid within the pelvis. Heterogeneous mixed lytic/sclerotic, primarily lytic lesion involving the left iliac bone and ischium is again seen but does appear mildly smaller in size compared to the previous no new focal osseous l esions are seen. IMPRESSION: 1. No evidence of metastatic disease within the thorax. 2. Bone metastasis involving the left iliac bone and ischium as described above. There does appear to be mild decrease in size of the lesion compared to previous. No new lesions are seen.
--- NOTE | 2023-12-22 08:46 | MM ---
Reason for Exam: Hx of breast cancer, conservation therapy. Last mammogram was performed 1 year(s) and 2 month(s) ago. Patient History: Menarche at age 15. First Full-Term at age 20. Hysterectomy at age 39. Postmenopausal. Patient has history of breast feeding. Breast cancer, left, age 59. Other cancer, age 63. Previous chest radiation therapy at age 59. Previous chemotherapy at age 59. 06/03/2019, Lumpectomy on the Left side. Malignant Core Biopsy. 05/07/2019, Malignant Core Biopsy on the left side. Prior Study Comparison: 04/26/2019 Bilateral Diagnostic Mammogram, [facility]. 05/07/2019 Left Diagnostic Mammogram, [facility]. 06/03/2019 Left Diagnostic Mammogram, [facility]. 05/11/2020 Bilateral Diagnostic Mammogram, [facility]. 10/06/2021 Bilateral Diagnostic Mammogram, [facility]. 10/11/2022 Bilateral MG 3D screening mammo w/cad, [facility]. Tissue Density: The breasts are heterogeneously dense, which may obscure small masses. Findings: Analyzed By CAD. There is no suspicious group of microcalcifications or new suspicious mass in either breast. Postbiopsy changes are seen in the left stable from prior exam. Architectural distortion. A clip in the outer margin of the left breast. Benign appearing calcifications. Overall Assessment: Benign, BI-RAD 2 Management: Screening Mammogram of both breasts in 1 year. . Patient should continue monthly self-breast exams. A clinical breast exam by your physician is recommended on an annual basis. This exam should not preclude additional follow-up of suspicious palpable abnormalities. Note on Lexi scores and lifetime risk: 1. A Lexi score greater than 3% is considered moderate risk. If this is the case, consider specialist referral to assess eligibility for a risk reducing agent. 2. If overall lifetime risk for the development of breast cancer is 20% or higher, the patient may qualify for future screening with alternating mammogram and breast MRI. Electronically signed and approved by: Leonid Danielson M.D. Radiologis
== END | disposition home or self-care (01) ==
LOC: RADMAMWWP 07:05
PROVIDERS: ATTEND Internal Medicine Hematology & Oncology
DX: Z12.31 Encounter for screening mammogram for malignant neoplasm of breast (principal); C79.51 Secondary malignant neoplasm of bone; C50.212 Malignant neoplasm of upper-inner quadrant of left female breast; M85.9 Disorder of bone density and structure, unspecified; D50.9 Iron deficiency anemia, unspecified; Z78.0 Asymptomatic menopausal state
CPT/HCPCS: 82565; 84520; 77067; 77063; 71260; 74177; 36415; Q9967

== ENCOUNTER → 2024-03-22 | Outpatient (CLI) | payer BC ==
--- NOTE | 2024-03-22 16:00 | NM ---
EXAMINATION TYPE: NM bone scan whole body DATE OF EXAM: 03/22/2024 COMPARISON: 12/20/2023 CLINICAL INDICATION: Female, 63 years old with history of C50.212 MALIG NEOPLASM OF UPPER-INNER QUADR ANT OF; C50.212 MALIG NEOPLASM OF UPPER-INNER QUADRANT OF TECHNIQUE: Delayed whole-body scanning was performed following the injection of 23.5 mCi Tc 99m MDP. Images acquired 3 hours post injection. FINDINGS: * There is a focal area of increased activity involving the left lateral calvarium. * A couple abnormal foci of activity posterior upper right hemithorax, * Left posterior lower thoracic ribs * Left anterior mid thoracic rib, * and a few scattered foci within the mid and lower thoracic spine. * Increased focus of activity left margin of the upper sternal body. * Additional increased activity superior medial right hemipelvis, * extensive along the left iliac bone, * medial right intertrochanteric region, * and mid left femoral shaft. Abnormal activity at both knees and hind foot/midfoot regions likely on a degenerative basis. Additio nal degenerative tracer activity at both shoulders. IMPRESSION: Scattered foci of increased activity as outlined above involving both axial and appendicular skeleton s in keeping with osseous metastatic disease. Activity within the left calvarium, posterior upper rig ht hemithorax, and mid left femoral shaft are new/increased. [facility] 03/22/2024 3:46 PM
== END | disposition home or self-care (01) ==
LOC: RADNMMAIN 11:01
PROVIDERS: ATTEND Internal Medicine Hematology & Oncology
DX: C50.212 Malignant neoplasm of upper-inner quadrant of left female breast
CPT/HCPCS: 78306

== ENCOUNTER → 2024-04-08 | Outpatient (CLI) | payer BC ==
[2024-04-08 10:04] LABS: African American GFR (CKD) >90 (>60 ml/min/1.73 sqM); Blood Urea Nitrogen 10 mg/dL (7-17); Non-African American GFR(CKD) >90 (>60 ml/min/1.73 sqM)
--- NOTE | 2024-04-08 12:18 | CT ---
EXAMINATION TYPE: CT ChestAbdPelvis w con CT DLP: 1876.90 mGycm, Automated exposure control for dose reduction was used. DATE OF EXAM: 04/08/2024 11:55 AM COMPARISON: CT chest abdomen and pelvis 12/21/2023, 08/11/23, nuclear medicine bone scan 03/22/2024 CLINICAL INDICATION:Female, 63 years old with history of C50.212 malig neoplasm upper inner quad of; [facility], Technique: Multiple axial images of the chest, abdomen, and pelvis were obtained following the intrav enous administration of 100 mL Isovue-300. Oral contrast was administered. Two-dimensional coronal an d sagittal reconstructions were obtained. Findings: CHEST: LUNGS/ PLEURA: No pleural effusion, pneumothorax, focal consolidation. Few stable pulmonary micronodu les. No suspicious pulmonary nodules or masses. AIRWAY: Patent and unremarkable.. HEART: Size within normal limits. No pericardial effusion. Small to moderate coronary calcifications. MEDIASTINUM: No evidence of adenopathy. VASCULATURE: Stable aneurysm dilatation of the ascending thoracic aorta measuring up to 4.1 cm. Stab le aneurysmal dilatation of the aortic root measuring up to 4.2 cm. Bovine aortic arch. MUSCULOSKELETAL: No acute osseous abnormalities.Multilevel degenerative disc disease of the midthorac ic spine with partial ankylosis. Redemonstration of sclerotic lesion involving the posterior right 12 th rib. Additional sclerosis involving the posterior right fifth rib and posterior left ninth rib. SOFT TISSUES/LYMPH NODES: No axillary lymphadenopathy. Post surgical changes with surgical clips in t he left axilla. Left breast skin thickening with posttreatment changes and surgical clips identified medially. Overall similar appearance. LOWER NECK: No significant findings. ABDOMEN: ABDOMEN LIVER: Diffusely hypoattenuating parenchyma. Consistent with steatosis. No suspicious focal lesion. GALLBLADDER AND BILE DUCTS: Unremarkable. PANCREAS: Unremarkable. SPLEEN: Unremarkable. ADRENAL GLANDS: Left adrenal gland is unremarkable. Stable nodularity of the right adrenal gland. KIDNEYS AND URETERS: No evidence of hydronephrosis or renal calculus. The kidneys enhance symmetrical ly. Contrast is demonstrated within both collecting systems on the delayed phase. PELVIS BLADDER: Unremarkable REPRODUCTIVE: The uterus is surgically absent. ABDOMEN & PELVIS STOMACH AND BOWEL: Stable large hiatal hernia. Postsurgical changes at the GE junction. Enteric contr ast reaches the mid small bowel. No focal bowel wall thickening or surrounding inflammatory changes. No evidence of bowel obstruction. PERITONEUM: No evidence of pneumoperitoneum or free fluid. VASCULATURE: No evidence of aortic aneurysm. Pelvic phleboliths. MUSCULOSKELETAL: No acute osseous abnormalities. Redemonstration of heterogenous mixed lytic/scleroti c lesion involving the left iliac bone and ischium. Degenerative changes of the pubic symphysis. Dege nerative changes of bilateral SI joints. LYMPH NODES: No evidence for lymphadenopathy. SOFT TISSUE/ABDOMINAL WALL: Unremarkable IMPRESSION: Redemonstration of bony metastasis involving primarily the left iliac bone and ischium with additiona l sites within the bilateral posterior ribs. Other sites seen on nuclear medicine scan are not well i dentified on CT. Uptake within the vertebral bodies may represent osseous metastasis versus degenerat arline change. No new intrathoracic or intra-abdominal/pelvic metastasis. No lymphadenopathy. [facility], , 04/08/2024 12:16 PM
== END | disposition home or self-care (01) ==
LOC: RADCTMAIN 09:31
PROVIDERS: ATTEND Internal Medicine Hematology & Oncology
CPT/HCPCS: 36415; 71260; 74177; 82565; 84520

== ENCOUNTER → 2024-07-30 | Outpatient (CLI) | payer SELFPAY ==
[2024-07-30 14:02] LABS: African American GFR (CKD) >90 (>60 ml/min/1.73 sqM); Blood Urea Nitrogen 13 mg/dL (7-17); Non-African American GFR(CKD) >90 (>60 ml/min/1.73 sqM)
--- NOTE | 2024-07-30 14:44 | CT ---
EXAMINATION TYPE: CT ChestAbdPelvis w con DATE OF EXAM: 07/30/2024 COMPARISON: Most recent prior CT April 08, 2024 and older studies HISTORY: Left-sided breast ca upper inner quadrant, bone mets CT DLP: 1425 mGycm. Automated Exposure Control for Dose Reduction was Utilized. CONTRAST: CT scan of the thorax, abdomen and pelvis is performed with oral and with IV Contrast, patient inject ed with 100 mL of Isovue 300. FINDINGS: CHEST: LUNGS/ PLEURA: A few tiny nodules bilaterally are redemonstrated. At least one is not clearly identif ied on most recent prior studies. For reference is a 5 millimeter nodule in the periphery of the righ t lung axial image 27. AIRWAY: Patent and unremarkable.. HEART: Size upper limits of normal. No pericardial effusion. Moderate coronary calcifications. MEDIASTINUM: No evidence of adenopathy. VASCULATURE: Stable aneurysm dilatation of the ascending thoracic aorta measuring up to 4.2 cm. Stab le aneurysmal dilatation of the aortic root measuring up to 4.1 cm. Bovine aortic arch. MUSCULOSKELETAL: No acute osseous abnormalities.Multilevel degenerative disc disease of the midthorac ic spine with partial ankylosis. Redemonstration of sclerotic lesion involving the posterior right 12 th rib axial image 49. Additional sclerosis involving the posterior right fifth rib and posterior lef t ninth rib. Acute minimally displaced fracture left posterior lateral seventh rib axial image 25 ser ies 4. SOFT TISSUES/LYMPH NODES: No axillary lymphadenopathy. Post surgical changes with surgical clips in t he left axilla. Left breast skin thickening with posttreatment changes and surgical clips identified medially. Overall similar appearance. LOWER NECK: No significant findings. ABDOMEN: ABDOMEN LIVER: Diffusely hypoattenuating parenchyma. Consistent with steatosis. No suspicious focal lesion. GALLBLADDER AND BILE DUCTS: Unremarkable. PANCREAS: Unremarkable. SPLEEN: Unremarkable. ADRENAL GLANDS: Left adrenal gland is unremarkable. Stable small nodularity of the right adrenal glan d. KIDNEYS AND URETERS: No evidence of hydronephrosis or renal calculus. The kidneys enhance symmetrical ly. Contrast is demonstrated within both collecting systems on the delayed phase. PELVIS BLADDER: Unremarkable REPRODUCTIVE: The uterus is surgically absent. ABDOMEN & PELVIS STOMACH AND BOWEL: Stable moderate size hiatal hernia. Postsurgical changes at the GE junction redemo nstrated. Enteric contrast reaches the cecum. No focal bowel wall thickening or surrounding inflammat ory changes. No evidence of bowel obstruction. PERITONEUM: No evidence of pneumoperitoneum or free fluid. VASCULATURE: No evidence of aortic aneurysm. Pelvic phleboliths. MUSCULOSKELETAL: Redemonstration of heterogenous mixed lytic/sclerotic lesion involving the left leo c bone and ischium. Degenerative changes of the pubic symphysis. Degenerative changes of bilateral SI joints. LYMPH NODES: No evidence for lymphadenopathy. SOFT TISSUE/ABDOMINAL WALL: Unremarkable IMPRESSION: Redemonstration of bony metastasis involving primarily the left iliac bone and ischium with additiona l sites within the bilateral posterior ribs. Bilateral small pulmonary nodules redemonstrated, at eda st one new 5 mm nodule is seen. Short-term follow-up CT advised as developing metastatic disease need s to be considered. No suspicious new mass or adenopathy in the abdomen or pelvis. [facility], , 07/30/2024 2:42 PM
--- NOTE | 2024-07-30 15:11 | NM ---
EXAMINATION TYPE: NM bone scan whole body DATE OF EXAM: 07/30/2024 COMPARISON: 03/22/2024. CLINICAL INDICATION: Female, 64 years old with history of C50.212 MALIG NEOPLASM OF UPPER-INNER QUADR ANT OF; Delayed whole-body scanning was performed following the injection of 24 mCi Tc 99m MDP. Images acqui red 3 hours post injection. FINDINGS: There is diffuse osseous intense abnormal uptake throughout the rib cage, calvarium, vertebral column , pelvis, lower extremities and upper extremities suspicious for widespread metastatic disease. Inten sity and degree of uptake appears progressed from prior exam. Abnormal uptake involving the feet likely post arthritic. IMPRESSION: There is progression of diffuse abnormal uptake compatible with progressive osseous metastases. [facility], , 07/30/2024 3:09 PM
== END | disposition home or self-care (01) ==
LOC: RADNMMAIN 09:50
PROVIDERS: ATTEND Internal Medicine Hematology & Oncology
DX: C50.212 Malignant neoplasm of upper-inner quadrant of left female breast (principal); D70.2 Other drug-induced agranulocytosis; G89.3 Neoplasm related pain (acute) (chronic); Z71.3 Dietary counseling and surveillance; C79.51 Secondary malignant neoplasm of bone; R91.8 Other nonspecific abnormal finding of lung field
CPT/HCPCS: 82565; 84520; 71260; 74177; 36415 ×2; 78306; A9503; Q9967

== ENCOUNTER → 2024-09-16 | Outpatient (CLI) | payer BC ==
--- NOTE | 2024-09-16 09:09 | MR ---
EXAMINATION TYPE: MR tspine/lspine wo/w con DATE OF EXAM: 09/16/2024 8:41 AM COMPARISON: 07/30/2024. CLINICAL INDICATION: Female, 64 years old with history of C50.212 Malig neoplasm of Upper-Inner Qu; P HH, Right side and back pain, breast cancer. TECHNIQUE: Multi planar, multi sequence imaging was performed utilizing: T1-weighted, T2-weighted, a nd turbo inversion recovery imaging of the thoracic and lumbar spine. IV Contrast: 10 mL Gadobutrol (None, if empty) FINDINGS: Alignment: The thoracic and lumbar vertebral bodies have preserved heights and mild scoliotic alignme nt. Alignment. Cord: The conus medullaris and the distal spinal cord appear unremarkable with regards to their signa l intensity and morphology. Bones/Discs: Multilevel areas of signal abnormality throughout the osseous structures including but n ot limited to T2 vertebral body, T6 vertebral body, T7 vertebral body, distention and the posterior e lements at T6 and T7 suspected. T8, T9-T10 diffusely and T11 with extension posterior elements and L1 , L2, L3-L4 and L5 with scattered lesions in the sacrum. There is increased FLAIR signal within these lesions.. Postcontrast imaging of the thoracic spine demonstrates enhancement within these vertebral body levels. THORACIC: No evidence significant spinal canal or neural foraminal stenosis. Spinal cord is within no rmal limits. LUMBAR: T12-L1: No evidence of significant spinal canal stenosis or neural foraminal stenosis. L1-L2: No evidence of significant spinal canal stenosis or neural foraminal stenosis. L2-L3: No evidence of significant spinal canal stenosis or neural foraminal stenosis. L3-L4: No evidence of significant spinal canal stenosis or neural foraminal stenosis. L4-L5: No evidence of significant spinal canal stenosis or neural foraminal stenosis. L5-S1: The disc is rounded posterior morphology without significant spinal canal stenosis. Facet join t arthropathy with mild neural foraminal stenosis. Other findings: None. IMPRESSION: 1. Diffuse osseous metastatic disease. No evidence for fracture. No evidence for significant spinal canal neural foraminal stenosis. 2. Mild to moderate degeneration changes throughout the spine. [facility], , 09/16/2024 9:07 AM
== END | disposition home or self-care (01) ==
LOC: RADMRIMAIN 06:55
PROVIDERS: ATTEND Internal Medicine Hematology & Oncology
DX: M47.897 Other spondylosis, lumbosacral region (principal); C50.212 Malignant neoplasm of upper-inner quadrant of left female breast; C79.51 Secondary malignant neoplasm of bone
CPT/HCPCS: 72157; 72158; A9585

== ENCOUNTER → 2024-09-20 | Outpatient (CLI) | payer BC ==
--- NOTE | 2024-09-20 17:41 | XR ---
EXAMINATION TYPE: XR humerus LT DATE OF EXAM: 09/20/2024 5:27 PM INDICATION: Patient age:Female; 64 years old; Reason for study: C50.212 BR CANCER C79.51 SECONDARY MALIGNANT NEOPL; PHH. pain COMPARISON: Nuclear medicine bone scan 07/30/2024 TECHNIQUE: The left humerus was examined in AP, lateral, and PA projections. FINDINGS: No evidence of acute osseous pathology, joint dislocation, or soft tissue swelling. Left AC joint arthropathy. There is some cortical thickening identified of the humerus shaft. The remaining portions of the visualized chest are unremarkable. IMPRESSION: Cortical thickening of the mid humerus shaft with increased radiotracer uptake on prior bone scan. Ra ises concern for metastasis. No radiographic evidence for fracture. [facility], , 09/20/2024 5:39 PM
--- NOTE | 2024-09-20 20:44 | CA ---
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 18 - 58 / 22 - 52 cm??? LA Volume Index 31.9 cm???/m??? 16 - 28 cm???/m??? M-MODE LV Diastolic Diameter MM 5.2 cm 4.2 - 5.9 / 3.9 - 5.3 cm LV Systolic Diameter MM 3.3 cm LV Cardiac Index MM Teich 3298.3 cm???/min???m??? IVS Diastolic Thickness MM 0.9 cm 0.6 - 1.0 / 0.6 - 0.9 cm LVPW Diastolic Thickness MM 1.0 cm 0.6 - 1.0 / 0.6 - 0.9 cm LV Relative Wall Thickness MM 0.4 0.24 - 0.42 / 0.22 - 0.42 LV Mass Index MM 89.0 g/m??? 49 - 115 / 43 - 95 g/m??? DOPPLER AV Peak Velocity 214.2 cm/s AV Peak Gradient 18.3 mmHg AV Mean Velocity 123.8 cm/s AV Mean Gradient 7.3 mmHg AV Velocity Time Integral 32.5 cm LVOT Peak Velocity 125.7 cm/s LVOT Peak Gradient 6.3 mmHg LVOT Velocity Time Integral 24.1 cm LVOT Stroke Volume 100.7 cm??? LVOT Stroke Volume Index 51.5 ml/m??? LVOT Cardiac Index 4005.5 cm???/min???m??? AV Area Cont Eq vti 3.1 cm??? AV Area Cont Eq pk 2.4 cm??? MV Area PHT 2.9 cm??? Mitral E Point Velocity 88.0 cm/s Mitral A Point Velocity 110.9 cm/s Mitral E to A Ratio 0.8 MV Deceleration Time 259.6 ms TR Peak Velocity 228.4 cm/s TR Peak Gradient 20.9 mmHg Right Atrial Pressure 5.0 mmHg Pulmonary Artery Systolic Pressu 25.9 mmHg Right Ventricular Systolic Press 25.9 mmHg PV Peak Velocity 106.2 cm/s PV Peak Gradient 4.5 mmHg FINDINGS Left Ventricle Left ventricular ejection fraction is estimated at 55-60 %. Mildly increased left ventricular mass. Mildly increased posterior wall thickness. Left ventricular cavity size normal. No obvious regional wall motion abnormalities. Strain performed but not recorded due to inadequate image quality. Right Ventricle Normal right ventricular size and function. Right ventricular systolic pressure within normal limits. Right Atrium Normal right atrial size. Left Atrium Mildly increased left atrial volume. Mildly increased left atrial area. Mitral Valve Structurally normal mitral valve. No evidence for mitral valve prolapse. No mitral stenosis. Trace mitral regurgitation. Aortic Valve Trileaflet aortic valve. No aortic stenosis. Mild to moderate aortic regurgitation. Tricuspid Valve Structurally normal tricuspid valve. No tricuspid stenosis. Mild tricuspid regurgitation. Pulmonic Valve Pulmonic valve not well visualized. No pulmonic stenosis. Trace pulmonic regurgitation. Pericardium No pericardial effusion. Aorta Aortic annulus normal. Mildly dilated proximal ascending aorta (tube). CONCLUSIONS Normal biventricular systolic function Mild to moderate aortic regurgitation No pericardial effusion Previewed by: Dr. Benedict Galarza MD (Electronically Signed) Final Date: 20 September 2024 20:44
== END | disposition home or self-care (01) ==
LOC: RADECHMAIN 16:18
PROVIDERS: ATTEND Internal Medicine Hematology & Oncology
DX: C50.212 Malignant neoplasm of upper-inner quadrant of left female breast (principal); C79.51 Secondary malignant neoplasm of bone; D70.2 Other drug-induced agranulocytosis; I35.1 Nonrheumatic aortic (valve) insufficiency; I07.1 Rheumatic tricuspid insufficiency
CPT/HCPCS: 93306

== ENCOUNTER → 2024-09-24 | Outpatient (CLI) | payer BC ==
[2024-09-24 08:40] LABS: African American GFR (CKD) >90 (>60 ml/min/1.73 sqM); Blood Urea Nitrogen 13 mg/dL (7-17); Non-African American GFR(CKD) 89 (>60 ml/min/1.73 sqM)
--- NOTE | 2024-09-24 09:38 | CT ---
EXAMINATION TYPE: CT ChestAbdPelvis w con DATE OF EXAM: 09/24/2024 9:11 AM COMPARISON: Multiple CTs dating back to 08/11/2023.. 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 Two-dimensional coronal and sagittal reconstructions were obtained. Contrast used:100 mL of Isovue 300 with IV Contrast, (None if empty) Oral contrast used: without Oral Contrast CT DLP: 1819.40 mGycm, Automated exposure control for dose reduction was used. Findings: CHEST: LUNGS/ PLEURA: No focal consolidation, pneumothorax or pleural effusion. Left lower lobe 6 mm pulmona ry nodule series 4 image 34 right lower lobe 4 mm pulmonary nodule series 4 image 35. right middle lobe 8 mm image 27 also 7 mm image 29 and 6 mm image 29 which may be intrafissural lymp h nodes given their along the pleura on sagittal imaging. Sagittal imaging 10 mm series 10 image 84 p reviously 8 mm. AIRWAY: Patent and unremarkable. HEART: Size within normal limits. No significant coronary artery calcifications. Moderate hiatal her moses. MEDIASTINUM: No gross evidence of adenopathy. VASCULATURE: No aortic aneurysm. MUSCULOSKELETAL: Moderate disc degeneration changes are present throughout the thoracolumbar spine. M ild scoliosis changes to the mid thoracic spine. SOFT TISSUES/LYMPH NODES: Postprocedure changes left breast with clips present. Mild skin thickening noted up to 5 mm. Left axillary surgical clips also present. LOWER NECK: No significant findings. ABDOMEN: ABDOMEN LIVER: Diffusely hypoattenuating parenchyma. GALLBLADDER AND BILE DUCTS: Unremarkable. PANCREAS: Unremarkable. SPLEEN: Unremarkable. ADRENAL GLANDS: Unremarkable. KIDNEYS AND URETERS: No evidence of hydronephrosis or renal calculus. The ureters are unremarkable. PELVIS BLADDER: Unremarkable REPRODUCTIVE: The uterus is surgically absent. ABDOMEN & PELVIS STOMACH AND BOWEL: No evidence of bowel obstruction. PERITONEUM/RETROPERITONEUM: No evidence of pneumoperitoneum or free fluid. VASCULATURE: No evidence of aortic aneurysm. MUSCULOSKELETAL: Bony destructive changes to the left pelvis with curvilinear lucency compatible with LYMPH NODES: No gross evidence for lymphadenopathy. SOFT TISSUE/ABDOMINAL WALL: Fat-containing umbilical hernia. IMPRESSION: 1. Post procedure/treatment changes left breast and left axilla with some skin thickening. 2. There is bony destructive changes to the pelvis with underlying pathologic fracture round the lef t acetabulum. This is seen dating back multiple priors at least 08/11/2023. 3. Few scattered areas of nodular thickening of the minor fissure on the right possibly representing an intrafissural lymph nodes. At least one of these, sagittal imaging series 10 image 84, appears la rger than prior. Attention on PET/CT if not recently performed. 4. Hepatic steatosis. 5. Moderate hiatal hernia. [facility], , 09/24/2024 9:35 AM
--- NOTE | 2024-09-24 14:07 | NM ---
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 Images acquired 5 hours post injection. FINDINGS: Diffuse abnormal uptake seen throughout the skull ribs femurs pelvis and spine. All the findings have increased in size and radiotracer activity compared to immediate prior including the mid femur lesio ns. The distal left femur may have a large lesion present. There is increased uptake within the bilat eral shoulder, sternoclavicular, and sacroiliac joints consistent with degenerative changes. No othe r photopenic areas or areas of increased activity are identified. Physiologic radiotracer activity is demonstrated in the kidneys and bladder. IMPRESSION: Diffuse abnormal uptake compatible with malignancy. This has progressed from prior on 07/30/2024. Poss ible larger lesion in the distal femur which may predispose this patient to pathologic fracture. Furt her workup with dedicated plain film and/or CT recommended of the left knee. [facility], , 09/24/2024 2:05 PM
== END | disposition home or self-care (01) ==
LOC: RADCTMAIN 07:48
PROVIDERS: ATTEND Internal Medicine Hematology & Oncology
DX: C50.212 Malignant neoplasm of upper-inner quadrant of left female breast (principal); C79.51 Secondary malignant neoplasm of bone; G89.3 Neoplasm related pain (acute) (chronic); D70.2 Other drug-induced agranulocytosis; K76.0 Fatty (change of) liver, not elsewhere classified; K44.9 Diaphragmatic hernia without obstruction or gangrene; R23.4 Changes in skin texture
CPT/HCPCS: 82565; 84520; 71260; 74177; 36415; 78306; A9503; Q9967

== ENCOUNTER → 2024-10-24 | Outpatient (CLI) | payer BC ==
--- NOTE | 2024-10-30 12:26 | PE ---
EXAMINATION TYPE: PET CT fusion whole body DATE OF EXAM: 10/24/2024 COMPARISON: Bone scan 09/24/2024 Prior PET/CT: CLINICAL INDICATION: Female, 64 years old with history of C79.51 secondary malignant neoplasm bone, TECHNIQUE: Following the intravenous administration of 10.43 mCi of F-18 FDG, whole body images are performed PET CT fusion whole body. Images are reviewed on the computer in the coronal, axial, and s agittal planes. Reconstructed rotating images are created on independent workstation and reviewed on the computer. A localization and attenuation correction CT is performed in conjunction with the PE T scan. DLP: 1199.07 mGycm SCAN: Subsequent Blood glucose: 97 mg/dL Average Mediastinum SUV: 1.74 Average Liver SUV: 2.07 FINDINGS: NECK: There is some uptake which may be in the left vocal cord level or hyoid bone. Example image 75 THORAX: The pretracheal lymph node which is not enlarged which has increased uptake with an SUV of 11 .4 suspicious for metastatic disease. Tiny area of uptake is adjacent to the aortic arch, image 98, S UV 10.5. Pretracheal lymphadenopathy has increased uptake, example image 99, 76.1 infrahilar adenopat hy is present bilaterally ABDOMEN: There is a solitary focal uptake within the lateral right lobe liver image 136, SUV 11.3. Fi ndings can be compatible with metastatic disease. There is abnormal uptake within the right adrenal gland has an SUV of 14.51 PELVIS: No abnormal uptake Lower extremities: No extraosseous abnormal uptake. OSSEOUS STRUCTURES: Calvarial lesions with uptake are identified on the right, image 10, image 19 milton e additional vague uptake may be within the parietal region on the right. Some focal uptake is along the anterior lateral maxillary wall, image 43. Abnormal uptake is within the C4 vertebral body. Incre ased uptake is present within C5. Uptake is within the T1 vertebral body, right second rib, left thir d rib, left scapula, bilateral distal clavicles, multiple thoracic vertebral levels. Uptake is within the bilateral medullary proximal humeri more notably on the left 13 and the right 15. Lumbar vertebr al bodies with multiple metastatic lesions. There is some abnormal uptake within the spinous process in the region of L4 and L1 and likely T11 some uptake within the spinous process of the upper thoraci c spine is also noted. There is uptake within the medial right iliac wing adjacent to sacroiliac join t. Uptake is within the sacrum and right sacral alar. Scattered areas of uptake are within the iliac bones bilaterally. Some uptake is adjacent to the acetabulum right hip and within the left symphysis pubis and right symphysis pubis more inferiorly. Uptake is within the posterior lateral right proxima l femur, image 243 and within the medullary femur on the left 268. Additional smaller focal areas wit hin the femurs are evident. More extensive uptake through the medullary femur is present on the mid a nd distal right femur. Uptake is at the bilateral metaphyseal femurs greater on the left example imag e 1 1 left 9.11. There is a posterior medullary focus of radiotracer in the proximal metaphyseal righ t tibia. Image 131 some abnormal uptake is likely within the proximal right fibula. There may be some mild increased uptake within the insertion of the right Achilles tendon. Differenti al of this location could also include inflammatory change and injury. LOCALIZATION CT: Moderate size hiatal hernia is present. COMPARISON: The calvarial metastases appear more extensive and are better visualized on the bone scan IMPRESSION: 1. Extensive osseous metastasis including axial and appendicular skeleton. 2. Solitary lesion within the lateral right lobe liver suspicious for metastasis. 3. Right adrenal gland suspicious for metastatic lesion. 4. Hyoid bone versus left focal cord radiotracer accumulation. 5. Bilateral hilar as well as small mediastinal lymph nodes with uptake suspicious for metastatic dis ease [facility], Workstation: [facility], 10/30/2024 12:24 PM
== END | disposition home or self-care (01) ==
LOC: RADPETMAIN 15:59
PROVIDERS: ATTEND Radiology Radiation Oncology
DX: C50.312 Malignant neoplasm of lower-inner quadrant of left female breast (principal); C79.51 Secondary malignant neoplasm of bone; K76.9 Liver disease, unspecified; Z92.3 Personal history of irradiation; Z17.0 Estrogen receptor positive status [ER+]
CPT/HCPCS: 78816; A9552

== ENCOUNTER → 2024-12-17 | Outpatient (CLI) | payer BC ==
[2024-12-17 10:12] LABS: African American GFR (CKD) >90 (>60 ml/min/1.73 sqM); Blood Urea Nitrogen 7 mg/dL (7-17); Non-African American GFR(CKD) >90 (>60 ml/min/1.73 sqM)
--- NOTE | 2024-12-17 11:22 | CT ---
EXAMINATION TYPE: CT ChestAbdPelvis w con CT DLP: 1788.4 mGycm, Automated exposure control for dose reduction was used. DATE OF EXAM: 12/17/2024 11:04 AM COMPARISON: PET CT 10/24/2024, nuclear medicine bone scan 09/24/2024, CT chest abdomen pelvis 09/24/2024 , 07/30/2024, 04/08/2024 CLINICAL INDICATION:Female, 64 years old with history of C50.212 MALIG NEOPLASM OF UPPER-INNE Z01.818 CHEMO; PHH, BREAST CA Technique: Multiple axial images of the chest, abdomen, and pelvis were obtained following the intrav enous administration of 100 mL Isovue-300. Oral contrast was administered. Two-dimensional coronal an d sagittal reconstructions were obtained. Findings: CHEST: LUNGS/ PLEURA: No pneumothorax or focal consolidation. Trace left pleural effusion. Several stable s cattered pulmonary nodules with examples including a posterior medial right upper lobe 8.9 mm nodule (series 4, image 16), medial right upper lobe 8.9 mm pulmonary nodule (series 4, image 25), and a rig ht middle lobe 8.3 mm pulmonary nodule (series 4, image 27). No new or enlarging pulmonary nodules. AIRWAY: Patent and unremarkable.. HEART: Cardiomegaly is demonstrated.Mitral annulus calcifications.. No pericardial effusion. Mild cor onary artery calcifications present. MEDIASTINUM: No enlarged lymph nodes greater than 1 cm short axis however there are multiple FDG avid subcentimeter lymph nodes seen on prior PET/CT. VASCULATURE: No aortic aneurysm. Dilated main pulmonary artery measuring up to 3.7 cm suggesting pul monary arterial hypertension. MUSCULOSKELETAL: No acute osseous abnormalities. Moderate multilevel degenerative disc disease. Mild S-shaped scoliotic curvature. Redemonstration of osseous metastasis within the visualized thoracolumb ar spine and ribs. SOFT TISSUES/LYMPH NODES: Left axillary lymph node dissection. No suspicious axillary lymphadenopathy . Surgical changes within the left breast. Similar left breast skin thickening. LOWER NECK: No significant findings. ABDOMEN: ABDOMEN LIVER: Diffusely hypoattenuating parenchyma. Subtle enhancing peripheral right hepatic lobe 2.4 cm le lulu which demonstrated FDG activity in prior PET/CT. Enlarged measuring 19.3 cm in CC dimension. GALLBLADDER AND BILE DUCTS: Unremarkable. PANCREAS: Unremarkable. SPLEEN: Unremarkable. ADRENAL GLANDS: The left adrenal gland is unremarkable. Thickening of the right adrenal gland which d emonstrate FDG activity in prior PET/CT. KIDNEYS AND URETERS: No evidence of hydronephrosis or renal calculus. The kidneys enhance symmetrical ly. Contrast is demonstrated within both collecting systems on the delayed phase. PELVIS BLADDER: Incompletely distended but grossly unremarkable. REPRODUCTIVE: The uterus is surgically absent. ABDOMEN & PELVIS STOMACH AND BOWEL: Moderate hiatal hernia redemonstrated with postsurgical changes at the GE junction , duodenum is unremarkable. Enteric contrast reaches the ascending colon. No focal bowel wall thicken ing or surrounding inflammatory changes. No evidence of bowel obstruction. PERITONEUM: No evidence of pneumoperitoneum or free fluid. VASCULATURE: Mild atherosclerotic calcifications are present throughout the abdominal aorta and its b ranches. No abdominal aortic aneurysm. Pelvic phleboliths. MUSCULOSKELETAL: No acute osseous abnormalities. Mild multilevel degenerative disc disease. Similar m ixed sclerotic/lytic appearance of the left pelvis compatible with known malignancy. Redemonstration of osseous metastasis within the visualized thoracolumbar spine. LYMPH NODES: No evidence for lymphadenopathy. SOFT TISSUE/ABDOMINAL WALL: Unremarkable IMPRESSION: 1. Redemonstration of bony metastasis which demonstrated FDG activity on prior PET CT. 2. Stable small pulmonary nodules redemonstrated. No definitive FDG uptake on prior PET/CT. No defini tive new or enlarging pulmonary nodule. 3. Subcentimeter mediastinal and hilar lymph nodes redemonstrated which did demonstrate FDG activity on prior PET/CT concerning for metastasis. No new suspicious mass or adenopathy. 4. Right adrenal gland lesion with FDG activity on prior PET/CT concerning for metastasis. 5. Subtle right hepatic lobe enhancing lesion which demonstrated FDG activity on prior PET CT and is concerning for metastasis. [facility], , 12/17/2024 11:19 AM
--- NOTE | 2024-12-17 11:30 | CA ---
Transthoracic Echo Report Name: Fernanda Rincon Age: 64 Gender: F : 1960 Exam Date: 12/17/2024 10:07 Exam Location: [place] [facility] Ht (in): 64 Wt (lb): 190 Ordering Physician: Rafael Hathaway MD Attending/Referring Phys: Compliance Quality Performance Analyst Sammi Ellison RDCS Procedure CPT: Indications: C50.212 MALIG NEOPLASM OF UPPER-INNE Z01.818 CHEMO Cardiac Hx: Technical Quality: Fair Contrast 1: Total Dose (mL): Contrast 2: Total Dose (mL): MEASUREMENTS (Male / Female) Normal Values 2D ECHO LV Diastolic Diameter PLAX 5.5 cm 4.2 - 5.9 / 3.9 - 5.3 cm LV Systolic Diameter PLAX 3.6 cm IVS Diastolic Thickness 1.0 cm 0.6 - 1.0 / 0.6 - 0.9 cm LVPW Diastolic Thickness 1.0 cm 0.6 - 1.0 / 0.6 - 0.9 cm LV Relative Wall Thickness 0.4 RV Internal Dim ED PLAX 3.2 cm LA Systolic Diameter LX 3.6 cm 3.0 - 4.0 / 2.7 - 3.8 cm LV Diastolic Volume MOD BP 90.0 cm??? 67 - 155 / 56 - 104 cm??? LV Systolic Volume MOD BP 32.3 cm??? 22 - 58 / 19 - 49 cm??? LV Ejection Fraction MOD BP 64.1 % >= 55 % LV Cardiac Index MOD BP 2100.8 cm???/min???m??? LV Diastolic Volume MOD 4C 88.6 cm??? LV Systolic Volume MOD 4C 30.7 cm??? LV Ejection Fraction MOD 4C 65.4 % LV Cardiac Index MOD 4C 2108.4 cm???/min???m??? LV Diastolic Length 4C 7.7 cm LV Systolic Length 4C 6.5 cm LV Diastolic Volume MOD 2C 93.9 cm??? LV Systolic Volume MOD 2C 35.3 cm??? LV Ejection Fraction MOD 2C 62.4 % LV Cardiac Index MOD 2C 2131.9 cm???/min???m??? LV Diastolic Length 2C 7.9 cm LV Systolic Length 2C 6.4 cm M-MODE Aortic Root Diameter MM 3.4 cm LA Systolic Diameter MM 2.6 cm LA Ao Ratio MM 0.8 DOPPLER AV Peak Velocity 184.5 cm/s AV Peak Gradient 13.6 mmHg AI Peak Velocity 298.8 cm/s AI Peak Gradient 35.7 mmHg AI Pressure Half Time 1248.7 ms Mitral E Point Velocity 84.2 cm/s Mitral A Point Velocity 117.1 cm/s Mitral E to A Ratio 0.7 MV Deceleration Time 369.4 ms MV E' Velocity 7.7 cm/s Mitral E to MV E' Ratio 10.9 TR Peak Velocity 238.8 cm/s TR Peak Gradient 22.8 mmHg Right Ventricular Systolic Press 32.8 mmHg FINDINGS Left Ventricle Left ventricular ejection fraction is estimated at 55-60 %. Mildly increased left ventricular diastolic diameter. Left ventricular cavity size normal. Average global longitudinal strain -16%.Normal left ventricular systolic function with no obvious regional wall motion abnormalities. Right Ventricle Normal right ventricular size. Right ventricular systolic pressure within normal limits. Right Atrium Mild right atrial dilatation. No right atrial thrombus or mass seen. Left Atrium Normal left atrial size. No left atrial thrombus or mass present. Mitral Valve Structurally normal mitral valve.mitral annular calcification. Mild mitral regurgitation. Aortic Valve Trileaflet aortic valve. Mild aortic regurgitation. Tricuspid Valve Structurally normal tricuspid valve. Mild tricuspid regurgitation. Pulmonic Valve Structurally normal pulmonic valve. Trace pulmonic regurgitation. Pericardium No pericardial effusion. Aorta Normal size aortic root and proximal ascending aorta. CONCLUSIONS 1. Normal left ventricular size and systolic function with average global longitudinal strain of -16% 2. Mild mitral, aortic and tricuspid regurgitation Previewed by: Dr. Michelle Martinez MD (Electronically Signed) Final Date: 17 December 2024 11:29
== END | disposition home or self-care (01) ==
LOC: RADCTMAIN 09:32
PROVIDERS: ATTEND Internal Medicine Hematology & Oncology
DX: Z01.818 Encounter for other preprocedural examination (principal); C50.212 Malignant neoplasm of upper-inner quadrant of left female breast; C79.51 Secondary malignant neoplasm of bone; G89.3 Neoplasm related pain (acute) (chronic); D70.2 Other drug-induced agranulocytosis; R91.8 Other nonspecific abnormal finding of lung field; E27.9 Disorder of adrenal gland, unspecified; K76.89 Other specified diseases of liver; I08.1 Rheumatic disorders of both mitral and tricuspid valves
CPT/HCPCS: 93306; 82565; 84520; 71260; 74177; 36415; Q9967

== ENCOUNTER 2025-01-28 21:41 | Emergency (ER) | payer BC ==
--- NOTE | 2025-01-28 22:33 | ED ---
General Adult HPI - General Chief complaint: Dizziness Stated complaint: Dizziness, Pain in Mouth Time Seen by Provider: 01/28/25 22:02 Source: patient Mode of arrival: wheelchair Limitations: no limitations - History of Present Illness Initial comments: This patient is a 64-year-old woman who is here to have evaluation for feeling lightheaded and weak like she is going to pass out. The patient states that she is not able to take much oral intake. She has been for the past week or so drinking 120 ounce Pepsi every 2 days or so. She has not been able to take more than a couple of mouthfuls of food. Patient was told that she had a "fungal infection" of her mouth and was given a solution to swish and spit and it 2-week course of tablets. The patient states that she stopped taking the tablets without 4 days to go because she was not feeling well after the medication. She states that the swish and spit solution was making her feel sick as well so she stopped that. Patient is taking chemotherapy for metastatic breast cancer with spread to bone. -: days(s) Consistency: constant Improves with: none Worsens with: none Associated Symptoms: malaise, nausea/vomiting, syncope (Near syncope), weakness Treatments Prior to Arrival: none - Related Data Home Medications Medication Instructions Recorded Confirmed Omeprazole [PriLOSEC] 20 mg PO DAILY PRN 06/13/23 06/15/23 Previous Rx's Medication Instructions Recorded Cyclobenzaprine [Flexeril] 5 mg PO TID PRN #15 tablet 07/20/23 predniSONE 50 mg PO DAILY #5 tab 07/20/23 traMADol HCl [Ultram] 50 mg PO Q6H PRN #20 tab 07/20/23 HYDROcodone/APAP 5-325MG [[place] 1 tab PO Q6HR PRN 3 Days #12 tab 07/31/23 5-325] Lidocaine 5% Patch [Lidoderm] 1 patch TOPICAL DAILY #16 patch 07/31/23 Lidocaine Viscous [Xylocaine 5 ml PO Q3HR PRN #100 ml 01/29/25 Viscous 2%] Allergies Allergy/AdvReac Type Severity Reaction Status Date / Time aspirin Allergy Anaphylaxis Verified 01/28/25 21:49 codeine Allergy Anaphylaxis Verified 01/28/25 21:49 shellfish derived [Shellfish] Allergy Anaphylaxis Verified 07/22/25 21:49 Review of Systems ROS Statement: Those systems with pertinent positive or pertinent negative responses have been documented in the HPI. ROS Other: All systems not noted in ROS Statement are negative. Constitutional: Reports: weakness. Denies: fever, chills Eyes: Denies: eye pain, vision change ENT: Reports: throat pain Respiratory: Denies: cough, dyspnea Cardiovascular: Denies: chest pain, palpitations, edema Gastrointestinal: Reports: nausea. Denies: abdominal pain, vomiting, diarrhea, melena, hematochezia Genitourinary: Denies: dysuria, hematuria Musculoskeletal: Denies: back pain Skin: Denies: rash Neurological: Denies: headache, weakness, numbness Past Medical History Past Medical History: Cancer, GERD/Reflux Additional Past Medical History / Comment(s): Frequent heartburn/colonoscopy is for screening, family hx of colon cancer. Severe lower back pain light headed occasionally, hiatal hernia, R carpal tunnel syndrome, left breast cancer 2019- radiation txs no chemo-follow w/ Dr Hathaway, anemia-past iron infusions, History of Any Multi-Drug Resistant Organisms: None Reported Past Surgical History: Section, Hernia Repair, Hysterectomy Additional Past Surgical History / Comment(s): x 3, cervical lymph node excision, EGD, colonoscopy, L carpal tunnel release, lt breast lumpectomy with lymph node biopsy. Past Anesthesia/Blood Transfusion Reactions: Motion Sickness, Postoperative Nausea & Vomiting (PONV) Additional Past Anesthesia/Blood Transfusion Reaction / Comment(s): blood transfusion- no reaction, anesthesia hard to wake up Past Psychological History: No Psychological Hx Reported Smoking Status: Never smoker Past Alcohol Use History: None Reported Past Drug Use History: None Reported - Past Family History Father Family Medical History: No Reported History Additional Family Medical History / Comment(s): . Mother Additional Family Medical History / Comment(s): Anemia Brother(s) Family Medical History: Cancer Additional Family Medical History / Comment(s): colon General Exam Limitations: no limitations General appearance: alert, in no apparent distress Head exam: Present: atraumatic, normocephalic Eye exam: Present: normal appearance. Absent: scleral icterus, conjunctival injection ENT exam: Present: mucous membranes dry, other (The oral exam is limited as patient did not tolerate tongue depressor used however there were no ulcerations or plaques within oral cavity. The pharynx does appear dry). Absent: mucous membranes moist Neck exam: Present: normal inspection, full ROM. Absent: tenderness, meningis mus Respiratory exam: Present: normal lung sounds bilaterally. Absent: respiratory distress, wheezes, rales, rhonchi, stridor, chest wall tenderness, accessory muscle use Cardiovascular Exam: Present: regular rate, normal rhythm, systolic murmur (Gr phu 1/6 systolic ejection murmur). Absent: diastolic murmur, rubs, gallop GI/Abdominal exam: Present: soft. Absent: distended, tenderness, guarding, rebound, rigid, mass Extremities exam: Present: normal inspection, normal capillary refill. Absent: pedal edema, calf tenderness Back exam: Present: normal inspection. Absent: CVA tenderness (R), CVA tenderness (L) Neurological exam: Present: alert Skin exam: Present: warm, dry, intact, normal color. Absent: rash Course Vital Signs 01/28/25 01/28/25 01/29/25 21:43 22:16 00:00 Temperature 97.8 F Pulse Rate 88 78 70 Respiratory 16 16 17 Rate Blood Pressure 128/82 124/69 135/70 O2 Sat by Pulse 95 96 96 Oximetry 01/29/25 01:10 Temperature 98.3 F Pulse Rate 67 Respiratory 17 Rate Blood Pressure 117/53 O2 Sat by Pulse 95 Oximetry EKG Findings - EKG Results: EKG: interpreted by ERMD, sinus rhythm (Rate 84 bpm), normal QRS - Blocks, [place], Hypertrophy, ST Abn: QRS axis and voltage: left axis deviation (-30 to -90) Repolarization changes or abnormalities: nonspecific abnormality, ST segment, a nd/or T wave Medical Decision Making - Medical Decision Making Was pt. sent in by a medical professional or institution (, PA, REGISTERED VETERINARY TECHNICIAN, urgent care, hospital, or senior care...) When possible be specific @ -[No] Did you speak to anyone other than the patient for history (EMS, parent, family, police, friend...)? What history was obtained from this source @ -[No] Did you review nursing and triage notes (agree or disagree)? Why? @ -[I reviewed and agree with nursing and triage notes] Were old charts reviewed (outside hosp., previous admission, EMS record, old EKG, old radiological studies, urgent care reports/EKG's, senior care records)? Report findings @ -[No old charts were reviewed] Differential Diagnosis (chest pain, altered mental status, abdominal pain women, abdominal pain men, vaginal bleeding, weakness, fever, dyspnea, syncope, headache, dizziness, GI bleed, back pain, seizure, CVA, palpatations, mental health, musculoskeletal)? @ -[Differential Weakness: Hypoglycemia, shock, sepsis, hyponatremia, anemia, infection, VT, ETOH, adverse medicine reaction, overdose, stroke, this is not meant to be an all-inclusive list. EKG interpreted by me (3pts min.). @ -[I interpreted as above] X-rays interpreted by me (1pt min.). @ -[None done] CT interpreted by me (1pt min.). @ -[None done] U/S interpreted by me (1pt. min.). @ -[None done] What testing was considered but not performed or refused? (CT, X-rays, U/S, labs)? Why? @ -[None] What meds were considered but not given or refused? Why? @ -[None] Did you discuss the management of the patient with other professionals (professionals i.e. , PA, REGISTERED VETERINARY TECHNICIAN, lab, RT, psych nurse, social services specialist, manager commission, teacher, police patrol officer, trimming caser)? Give summary @ -[No] Was smoking cessation discussed for >3mins.? @ -[No] Was critical care preformed (if so, how long)? @ -[No] Were there social determinants of health that impacted care today? How? (Homelessness, low income, unemployed, alcoholism, drug addiction, transportation, low edu. Level, literacy, decrease access to med. care, usp, rehab)? @ -[No] Was there de-escalation of care discussed even if they declined (Discuss DNR or withdrawal of care, Hospice)? DNR status @ -[No] What co-morbidities impacted this encounter? (DM, HTN, Smoking, COPD, CAD, Cancer, CVA, ARF, Chemo, Hep., AIDS, mental health diagnosis, sleep apnea, morbid obesity)? @ -[None] Was patient admitted / discharged? Hospital course, mention meds given and route, prescriptions, significant lab abnormalities, going to OR and other pertinent info. @ -[Patient is 64-year-old woman here with generalized weakness and fatigue who does appear mildly dehydrated. She has not been taking fluids well and she had stopped treatment for possible thrush/candidiasis. On the exam I do not definitely see any plaques consistent with this but as there may be some that is not visible in the pharynx she is urged to go back on the medication. The patient is hydrated and is feeling better on reevaluation. At this point she would like to go home, but I did discuss return parameters and she is to have close follow-up. Undiagnosed new problem with uncertain prognosis? @ -[No] Drug Therapy requiring intensive monitoring for toxicity (Heparin, Nitro, Insulin, Cardizem)? @ -[No] Were any procedures done? @ -[No] Diagnosis/symptom? @ -[Acute dehydration Possible pharyngeal candidiasis Acute, or Chronic, or Acute on Chronic? @ -[Acute Uncomplicated (without systemic symptoms) or Complicated (systemic symptoms)? @ -[Complicated by weakness Side effects of treatment? @ -[No] Exacerbation, Progression, or Severe Exacerbation? @ -[No] Poses a threat to life or bodily function? How? (Chest pain, [place], VT, pneumonia, PE, COPD, DKA, ARF, appy, cholecystitis, CVA, Diverticulitis, Homicidal, Suicidal, threat to staff... and all critical care pts) @ -[No] All treatments are based on ideal body weight as in ED triage - Lab Data Result diagrams: 01/28/25 22:34 01/28/25 22:34 Lab Results 01/28/25 01/28/25 01/28/25 Range/Units 22:34 22:34 22:34 WBC 4.67 (4.50-10.00) 10*3/uL RBC 3.54 L (4.10-5.20) 10*6/uL Hgb 12.2 (12.0-15.0) g/dL Hct 36.2 L (37.2-46.3) % MCV 102.3 H (80.0-97.0) fL MCH 34.5 H (27.0-32.0) pg MCHC 33.7 (32.0-37.0) g/dL Plt Count 133 L (140-440) 10*3/uL MPV 10.3 (9.5-12.2) fL Immature Gran % (Auto) 1.1 % Neutrophils % 75.7 % Lymphocytes % 10.7 % Monocytes % 5.8 % Eosinophils % 5.8 % Basophils % 0.9 % Immature Gran # 0.05 H (0.00-0.04) 10*3/uL Neutrophils # 3.54 (1.80-7.70) 10*3/uL Lymphocytes # 0.50 L (0.90-5.00) 10*3/uL Monocytes # 0.27 (0.20-1.00) 10*3/uL Eosinophils # 0.27 (0.04-0.35) 10*3/uL Basophils # 0.04 (0.00-0.10) 10*3/uL Sodium 138 (137-145) mmol/L Potassium 3.6 (3.5-5.1) mmol/L Chloride 103 (98-107) mmol/L Carbon Dioxide 25 (22-30) mmol/L Anion Gap 10 mmol/L BUN 6 L (7-17) mg/dL Creatinine 0.58 (0.52-1.04) mg/dL Est GFR (CKD-EPI)AfAm >90 (>60 ml/min/1.73 sqM) Est GFR (CKD-EPI)NonAf >90 (>60 ml/min/1.73 sqM) Glucose 115 H (74-99) mg/dL Plasma Lactic Acid Alejandro 1.5 (0.7-2.0) mmol/L Calcium 9.4 (8.4-10.2) mg/dL Total Bilirubin 1.5 H (0.2-1.3) mg/dL AST 107 H (14-36) U/L ALT 27 (4-34) U/L Alkaline Phosphatase 140 H (38-126) U/L Total Protein 6.3 (6.3-8.2) g/dL Albumin 3.6 (3.5-5.0) g/dL Disposition Clinical Impression: Dizziness, Dehydration Disposition: HOME SELF-CARE Condition: Fair Instructions (If sedation given, give patient instructions): Dehydration (ED) Additional Instructions: As we discussed, use the viscous lidocaine prior to eating to improve the discomfort associated with swallowing. Continue the prescribed antifungal agents, and follow with your oncologist. Return here if there is any worsening. Prescriptions: Lidocaine Viscous [Xylocaine Viscous 2%] 5 ml PO Q3HR PRN #100 ml PRN Reason: Sore Throat Is patient prescribed a controlled substance at d/c from ED?: No Referrals: Rafael Hathaway MD [Primary Care Provider] - 1-2 days
[2025-01-28] MEDS: SODIUM CHLORIDE 0.9% 1,000 ML IV STA (22:36)
[2025-01-28 23:13] LABS: Basophils # (A) 0.04 10*3/uL (0.00-0.10); Basophils % (A) 0.9 %; Eosinophils # (A) 0.27 10*3/uL (0.04-0.35); Eosinophils % (A) 5.8 %; HCT 36.2 % (37.2-46.3); HGB 12.2 g/dL (12.0-15.0); Lymphocytes # (A) 0.50 10*3/uL (0.90-5.00); Lymphocytes % (A) 10.7 %; MCH 34.5 pg (27.0-32.0); MCHC 33.7 g/dL (32.0-37.0); MCV 102.3 fL (80.0-97.0); Monocytes # (A) 0.27 10*3/uL (0.20-1.00); Monocytes % (A) 5.8 %; Neutrophils # (A) 3.54 10*3/uL (1.80-7.70); Neutrophils % (A) 75.7 %; Platelet Count 133 10*3/uL (140-440); RBC 3.54 10*6/uL (4.10-5.20); RDW 14.7 % (11.5-14.5); WBC 4.67 10*3/uL (4.50-10.00)
[2025-01-28 23:32] LABS: ALT 27 U/L (4-34); AST 107 U/L (14-36); African American GFR (CKD) >90 (>60 ml/min/1.73 sqM); Albumin 3.6 g/dL (3.5-5.0); Alkaline Phosphatase 140 U/L (38-126); Anion Gap 10 mmol/L; Blood Urea Nitrogen 6 mg/dL (7-17); Calcium 9.4 mg/dL (8.4-10.2); Carbon Dioxide 25 mmol/L (22-30); Chloride 103 mmol/L (98-107); Glucose 115 mg/dL (74-99); Non-African American GFR(CKD) >90 (>60 ml/min/1.73 sqM); Potassium 3.6 mmol/L (3.5-5.1); Sodium 138 mmol/L (137-145); Total Protein 6.3 g/dL (6.3-8.2)
[2025-01-29 00:15] VITALS: RESP 17
[2025-01-29 01:16] VITALS: BP 117/53; PULSE 67; TEMP 98.3
== END 2025-01-29 01:20 | disposition home or self-care (01) ==
LOC: EC 21:41
DX: E86.0 Dehydration (principal); Z91.013 Allergy to seafood; Z88.5 Allergy status to narcotic agent; Z88.6 Allergy status to analgesic agent
CPT/HCPCS: 36415; 80053; 83605; 85025; 93005; 96360; 99284